=== PATIENT | female | born 1935 | race Caucasian/White ===

== ENCOUNTER 2018-02-06 11:19 | Outpatient (CLI) | payer MEDICARE, BC ==
--- NOTE | 2018-02-06 16:27 | PET ---
PET CT: HISTORY: 82-year-old female with lung cancer. Exam requested for restaging. Patient had left lobectomy in 2013 . TECHNIQUE: PET scanning with CT attenuation correction was performed from the base of the brain through the prox imal thighs following the intravenous administration of 10 mCi F18-FDG in the left antecubital fossa. COMPARISON: PET CT dated 11/04/12. FINDINGS: No levon hypermetabolism is seen in the neck, mediastinum, hilar regions, axilla, abdomen, or pelvis. No hypermetabolic pulmonary nodules, liver, adrenal, or skeletal lesions are seen. The previously noted soft tissue mass-like density in the right posterior lung base is again seen wit h increased calcification since the last exam. This demonstrates no abnormal FDG localization. There is a 5.0 mm nodule in the left upper lobe without abnormal FDG localization. No pleural or usama cardial effusions are seen. No ascites is identified. There is physiologic activity in the GI and tracts, and the visualized portions of the brain. There is a left hip effusion with presence of increased FDG localization, indicative of synovitis. IMPRESSION: 1. No evidence of metastatic disease. 2. 5.0 mm left upper lobe lung nodule. This is an indeterminate finding and should be followed up wi th a CT scan of the chest in 6 months. POS: CARLYN
== END 2018-02-06 11:20 | disposition home or self-care (01) ==
LOC: PET 11:19
PROVIDERS: ATTEND Family Medicine
DX: C34.30 Malignant neoplasm of lower lobe, unspecified bronchus or lung (principal); R91.1 Solitary pulmonary nodule
CPT/HCPCS: 78815; A9552

== ENCOUNTER 2018-03-26 09:42 | Inpatient (IN) | payer MEDICARE, BC ==
[2018-03-26] MEDS ORDERED: Sodium Chloride 0.9% 100 ML ONE (10:02)
[2018-03-26] MEDS ORDERED: Piperacillin/Tazobactam 4.5 GM VIAL ONE (10:02)
[2018-03-26] MEDS ORDERED: Magnesium 2 GM/50 ML BAG (IN WATER) ONE (10:02)
[2018-03-26] MEDS ORDERED: Albuterol Sulfate 2.5 mg/0.5 ml Neb ONE (10:13)
[2018-03-26] MEDS ORDERED: Albuterol Sulfate 2.5 mg/3 ml Neb ONE (10:13)
[2018-03-26] MEDS ORDERED: Furosemide 20 MG/2 ML VIAL ONE (11:08)
--- NOTE | 2018-03-26 12:08 | HP ---
CHIEF COMPLAINT: Shortness of breath and cough. HISTORY OF PRESENT ILLNESS: The patient is an 82-year-old female with a 1-week history of increased shortness of breath and productive cough. She had some greenish brownish sputum now. The sputum is turned into mucus. She denied any fever or chills. She noticed about progressively increased shortness of breath. She has COPD, with O2 oxygen at home for p.r.n. use, she usually uses at night. Also, she uses a CPAP. Dr. 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 She had some loose stools and she thinks that she had bad reaction to erythromycin. Apparently, she was at [facility] a few days ago and she was discharged home I believe on erythromycins and that is how she believed that the erythromycin is causing problem because her shortness of breath increased after she started using it. PAST MEDICAL HISTORY: Her past medical history is positive for; 1. Hypertension. 2. Lung cancer. 3. Chronic obstructive pulmonary disease. PAST SURGICAL HISTORY: 1. Cholecystectomy. 2. Left lower half lung removal for lung cancer. SOCIAL HISTORY: She denies any cigarette smoking for more than 10 years. She does not drink alcohol. She does not use any illicit drugs. ALLERGIES: ERYTHROMYCIN, CODEINE, HYDROCODONE, MORPHINE, OXYCODONE, PENICILLIN, AND VICODIN. CURRENT MEDICATIONS: 1. Losartan 50 mg once a day. 2. Norvasc 5 mg once a day. 3. Famotidine 40 mg once a day. 4. Symbicort two puffs twice a day, 160/4.5. 5. Albuterol sulfate. 6. DuoNeb p.r.n. FAMILY HISTORY: Father and mother of MIs in their 70s. REVIEW OF SYSTEMS: She complains about the left hip pain, which radiates to the left lower extremity. Otherwise, she does not have much complaints to offer. All other systems were reviewed and only positive findings in HPI are positive. PHYSICAL EXAMINATION: VITAL SIGNS: Her blood pressure is 133/87, pulse is 108, respiratory rate 28. She is on wearing a BiPAP mask during my visit. HEENT: Her head is atraumatic and normocephalic. Eyes, pupils are responding to light properly. Sclerae are nonicteric. Conjunctiva somewhat palish. Oral mucosa is not examined since she wears the mask during my visit. LUNGS: Bilateral rales present, significant breath sounds diminished at the right base. HEART: S1 and S2. Tachycardic. No S3. No S4. No any murmur. ABDOMEN: Soft, nontender, and nondistended. Bowel sounds are present. No organomegaly. EXTREMITIES: No clubbing, cyanosis, or edema. NEUROLOGIC: She is alert and oriented x4. There is no any sensory or motor deficits present. Cranial nerves are intact. LABORATORY DATA: White count 16.8, hemoglobin of 15.4, hematocrit 49.5, and platelet count of 663. Chemistry showed sodium of 134, potassium 4.4, chloride 100, CO2 of 23, BUN 17, creatinine 0.85, glucose 123, lactic acid 1.7, calcium 10.9, CK-MB 8.1, alkaline phosphatase 79. Troponin first set is 0.130. The 2nd one is 0.849. BNP 271. Chest x-ray was done and it showed right basilar infiltrate with some pleural effusion and pulmonary vascular congestion along with atherosclerosis. This was personally reviewed by me. EKG showed sinus tachycardia with a ventricular rate of 123 beats per minute. IMPRESSION: 1. Respiratory failure with hypoxia most likely related to pneumonia. The patient received vancomycin and Zosyn in the emergency room. I will continue her nebs, magnesium, and Solu-Medrol. She came from [facility] [facility], where she got all this treatment and she was transferred to our [facility] in [place]. 2. Elevated troponins, which are suggestive of demand ischemia and [id number] myocardial infarction. She received one dose of Lasix in the emergency room and aspirin. 3. Chronic obstructive pulmonary disease. 4. Hypertension. 5. History of lung cancer and removal of the left lower lobe by Dr. Gibson at [facility] in 2012. PLAN: Full admission to [facility]. Condition is guarded. IV Hep-Lock. Diet, heart healthy. Solu-Medrol 40 mg IV push every 6 hours, DuoNeb q.4 hours, levofloxacin 750 mg every 24 hours IV piggyback. Pulmonology consult. The case was discussed with Dr. Contreras, who will see her in [facility]. Consultation with Cardiology, Dr. Jo, echocardiogram and additional troponin. Blood cultures and DVT prophylaxis with SCDs and Lovenox. Job ID: [id number]
[2018-03-26 14:15] LABS: Troponin I 1.281 ng/mL (< 0.028)
[2018-03-26] MEDS ORDERED: Sodium Chloride 0.9% 1,000 ML IV SCH (15:03)
[2018-03-26] MEDS ORDERED: Acetaminophen 325 MG TAB PO PRN (15:03)
[2018-03-26] MEDS ORDERED: Ondansetron PF 4 MG/2 ML Vial IVP PRN (15:03)
[2018-03-26] MEDS ORDERED: Ondansetron ODT 4 MG TAB SL PRN (15:03)
[2018-03-26 15:19] VITALS: BMI 23.0
[2018-03-26] MEDS ORDERED: Piperacillin/Tazobactam 4.5 GM in Sodium Chloride 0.9% 100 ML IVPB SCH (18:00)
[2018-03-26] MEDS: Gabapentin 100 MG CAP PO SCH (20:29)
[2018-03-26] MEDS ORDERED: methylPREDNISolone Sod Succ/PF 125 MG/2 ML VIAL IVP SCH (21:00)
--- NOTE | 2018-03-26 22:50 | CON ---
DATE OF CONSULTATION: 03/26/2018 HISTORY OF PRESENT ILLNESS: Rosalba Fenton is an 82-year-old white female, who was admitted with respiratory failure with hypoxia. She has undergone cardiac evaluation in the past. I evaluated her in June 2008 and she was asymptomatic except for getting somewhat dizzy and nauseated when she would workout in the heat. She had a normal EKG. Echo revealed ejection fraction of 60% to 65% with mild mitral regurgitation and moderate tricuspid regurgitation. It was felt that no further cardiac evaluation was warranted at that time. In August 2012, she had shortness of breath and chest pain, was flown from [place] via helicopter to [place]. She was evaluated by Dr. Vasquez. She was found to have diffuse ST-segment elevation, but no reciprocal changes. She underwent emergent cardiac catheterization which revealed an ejection fraction of 10% to 15% and 50% to 60% distal right coronary artery stenosis, but otherwise unremarkable coronary arteries. Left ventriculogram as stated had an ejection fraction of 10% to 15% and there was mid to distal anterior wall apex, mid to distal inferior wall akinesis, and hypercontractile segments within the basal segments only. It was felt that this was due to Takotsubo cardiomyopathy. She was placed on appropriate medications and was ambulating in the carson. She was discharged on carvedilol and lisinopril and then went to [facility] in [place]. She regained her strength and went home, but never came back for followup with Dr. Vasquez. Apparently, she has followup with Dr. Joens. She states that she was told that her heart strength was excellent and apparently, she recovered from the Takotsubo cardiomyopathy. She denies any recurrence of chest discomfort. Over the last several days, she has had increasing shortness of breath and productive cough initially of green sputum, but then brown sputum. She denies any fever or chills. She uses O2 at night and a CPAP. She apparently was in [facility] a few days ago was discharged with erythromycin, which caused her problems with diarrhea. She then was transferred from [place] here for further evaluation. PAST MEDICAL HISTORY: Hypertension. She denies any history of hypercholesterolemia, although her LDL has been up to 111 in the past, COPD and lung cancer. OPERATIONS: Cholecystectomy and left lower lobectomy for lung cancer. SOCIAL HISTORY: She stopped smoking 10 years ago. She does not drink alcohol. MEDICATIONS: 1. Losartan 100 mg daily. 2. Gabapentin 200 mg b.i.d. 3. Amlodipine 5 mg daily. 4. Atarax 25 mg p.r.n. ALLERGIES: PENICILLIN, OXYCODONE, HYDROCODONE, DUONEB P.R.N. FAMILY HISTORY: Father and mother of myocardial infarctions in their 70s. REVIEW OF SYSTEMS: A 12-point review of systems is otherwise unremarkable. PHYSICAL EXAMINATION: VITAL SIGNS: Blood pressure 112/72, pulse of 117, sinus rhythm on the monitor. HEENT: PERRL. NECK: Supple. CHEST: Reveals diffuse expiratory wheezing. CARDIOVASCULAR: S1 and S2 are normal without any S3, S4, or murmurs. ABDOMEN: Normal bowel sounds. No tenderness or organomegaly. EXTREMITIES: Revealed no clubbing, cyanosis, or edema. NEUROLOGICAL: Grossly intact. SKIN: Warm and dry. LABORATORY DATA: EKG revealed sinus tachycardia with rate of 114 per minute with possible left atrial enlargement and poor R-wave progression. Hemoglobin 15.4, hematocrit 49.5, white count 16,800, platelets 663,000. Sodium 134, potassium 4.4, chloride 100, carbon dioxide 23, BUN 17, creatinine 0.85, glucose 123, BNP 271.0 , troponin I is up to 1.281. IMPRESSION: 1. Respiratory failure with hypoxemia, probable pneumonia. She has been placed on broad-spectrum antibiotics. 2. Elevated troponin, probably due to demand ischemia. 3. Chronic obstructive pulmonary disease. 4. Former smoker. 5. Hypertension. 6. History of lung cancer with removal of left lower lobe. 7. Hypercholesterolemia with LDL of 111 in the past. 8. Coronary artery disease with 50% to 60% distal right coronary artery lesion in August 2012. 9. History of Takotsubo cardiomyopathy in August 2012. She had an ejection fraction of 10% to 15%. However, by her history, this is totally recovered. PLAN: Echocardiogram will be performed to reassess left ventricular function. Fasting lipid profile will be performed since she should be on a statin with her coronary artery disease. Further evaluation will be dependent on clinical course but at the present time with her respiratory distress and expiratory wheezing, I do not feel any further cardiac evaluation other than an echo and lab tests are warranted at this time. Job ID: [id number] [facility]
[2018-03-27] MEDS: hydrOXYzine 25 MG TAB PO PRN ×2 (01:03→20:50)
[2018-03-27 04:42] LABS: #Lymphocytes 0.6 thou/uL (1.20-3.40); #Monocytes 0.7 thou/uL (0.11-0.59); #Neutrophils 7.3 thou/uL (1.40-6.50); %Basophils 0.5 % (0.0-1.0); %Eosinophils 0.3 % (0.0-10.0); %Lymphocytes 6.6 % (21.0-51.0); %Monocytes 7.5 % (0.0-10.0); %Neutrophils 85.1 % (42.0-75.0); Hemoglobin 13.6 g/dL (12.0-16.0); Mean Corpuscular HGB CONC 32.2 g/dL (32.0-36.0); Mean Corpuscular Hemoglobin 27.9 pg (27.0-31.0); Mean Corpuscular Volume 86.6 fL (78.0-98.0); Mean Platelet Volume 6.8 fL (7.4-10.4); Platelet Count 557 thou/uL (130-400); RBC Distribution Width 16.3 % (11.5-14.5); Red Blood Cell (RBC) Count 4.86 mill/uL (4.20-5.40); White Blood Cell (WBC) Count 8.6 thou/uL (4.8-10.8)
[2018-03-27 04:47] LABS: Anion Gap 12 mmol/L (10-20); BUN (Urea Nitrogen) 19 mg/dL (9.8-20.1); Calc. Creatinine Clearance 50 mL/min (70-130); Calcium 10.1 mg/dL (7.8-10.44); Carbon Dioxide 23 mmol/L (23-31); Chloride 100 mmol/L (98-107); Cholesterol 166 mg/dl (< 200 Desired); Estimated GFR-MDRD 76; Glucose 113 mg/dL (83-110); HDL Cholesterol 83 mg/dL (>60 Neg Risk); LDL Cholesterol, Calculated 73 mg/dL; Potassium 4.1 mmol/L (3.5-5.1); Sodium 131 mmol/L (136-145); Triglycerides 50 mg/dL (Less than 150)
[2018-03-27] MEDS ORDERED: Amlodipine 5 MG TAB PO SCH (09:00)
[2018-03-27] MEDS: Aspirin 325 mg Enteric Coated Tablet PO SCH (09:41)
[2018-03-27] MEDS: Gabapentin 100 MG CAP PO SCH ×3 (09:41→20:54)
[2018-03-27] MEDS: Losartan 25 MG TAB PO SCH (09:41)
[2018-03-27] MEDS: Enoxaparin Sodium 40 MG/0.4 ML SYRINGE SC SCH (09:42)
[2018-03-27] MEDS: Carvedilol 3.125 MG TAB PO SCH (17:34)
--- NOTE | 2018-03-27 19:23 | PDOC.PN ---
- Subjective Encounter Start Date: 03/27/18 Encounter Start Time: 10:00 Feeling much better today than she did yesterday. Less SOB and cough. - Objective Resuscitation Status - Order Detail: 03/26/18 10:50 Resuscitation Status Routine Resuscitation Status: FULL: Full Resuscitation Vital Signs & Weight: Vital Signs (12 hours) Temp Pulse Resp BP Pulse Ox 03/27/18 18:29 94 18 98 03/27/18 15:19 98.5 F 95 126/80 96 03/27/18 13:54 89 20 94 L 03/27/18 11:03 97.7 F 95 32 H 122/66 92 L 03/27/18 09:47 103 H 24 H 95 03/27/18 09:41 113 H 03/27/18 07:39 94 L Weight Weight 124 lb 6.4 oz I&O: 03/26/18 03/27/18 03/28/18 06:59 06:59 06:59 Intake Total 1940 Output Total 1050 Balance 890 Result Diagrams: 03/27/18 04:06 03/27/18 04:06 Phys Exam - Physical Examination Constitutional: NAD Awake and alert. Sitting up eating. diffusely scattered rales and modest wheezes. Cardiovascular: RRR, no significant murmur Gastrointestinal: soft, non-tender, no distention, positive bowel sounds Musculoskeletal: no edema Psychiatric: normal affect, A&O x 3 Dx/Plan (1) Acute respiratory failure with hypoxia Code(s): J96.01 - ACUTE RESPIRATORY FAILURE WITH HYPOXIA Status: Acute (2) Pneumonia Code(s): J18.9 - PNEUMONIA, UNSPECIFIED ORGANISM Status: Acute (3) COPD exacerbation Code(s): J44.1 - CHRONIC OBSTRUCTIVE PULMONARY DISEASE W (ACUTE) EXACERBATION Status: Acute (4) Hypertension Code(s): I10 - ESSENTIAL (PRIMARY) HYPERTENSION Status: Acute (5) Hx of cancer of lung Code(s): Z85.118 - PERSONAL HISTORY OF MALIGNANT NEOPLASM OF BRONCHUS AND LUNG Status: Acute (6) CAD (coronary artery disease) Code(s): I25.10 - ATHSCL HEART DISEASE OF [place] CORONARY ARTERY W/O ANG PCTRS Status: Acute (7) Cardiomyopathy Code(s): I42.9 - CARDIOMYOPATHY, UNSPECIFIED Status: Acute - Plan * Cardiology following. Echo with improved EF over prior baseline, but still low. * Continue beta cristiano. * Continue abx, steroids, nebs, oxygen. * Follow up cultures. * Continue home dose of Lasix.
[2018-03-27] MEDS: Atorvastatin Calcium 10 MG TAB PO SCH (20:49)
[2018-03-28 05:18] LABS: Anion Gap 10 mmol/L (10-20); BUN (Urea Nitrogen) 23 mg/dL (9.8-20.1); Calc. Creatinine Clearance 45 mL/min (70-130); Calcium 10.6 mg/dL (7.8-10.44); Carbon Dioxide 28 mmol/L (23-31); Chloride 99 mmol/L (98-107); Estimated GFR-MDRD 66; Glucose 114 mg/dL (83-110); Potassium 4.8 mmol/L (3.5-5.1); Sodium 132 mmol/L (136-145)
[2018-03-28 05:45] LABS: Band 3 % (5-11); Hemoglobin 14.3 g/dL (12.0-16.0); Lymphocytes 8 % (21-51); MDiff Complete? YES; Mean Corpuscular HGB CONC 32.7 g/dL (32.0-36.0); Mean Corpuscular Hemoglobin 28.5 pg (27.0-31.0); Mean Corpuscular Volume 87.3 fL (78.0-98.0); Mean Platelet Volume 6.9 fL (7.4-10.4); Monocytes 3 % (0-10); Neutrophil 86 % (42-75); Platelet Count 603 thou/uL (130-400); Platelet Morphology Comment Appears Increased; RBC Distribution Width 16.2 % (11.5-14.5); Red Blood Cell (RBC) Count 5.02 mill/uL (4.20-5.40); White Blood Cell (WBC) Count 8.4 thou/uL (4.8-10.8)
[2018-03-28] MEDS: Enoxaparin Sodium 40 MG/0.4 ML SYRINGE SC SCH (08:49)
[2018-03-28] MEDS: Carvedilol 3.125 MG TAB PO SCH ×2 (08:49→17:10)
[2018-03-28] MEDS: Furosemide 20 MG TAB PO SCH (08:49)
[2018-03-28] MEDS: Losartan 25 MG TAB PO SCH (08:49)
[2018-03-28] MEDS: Aspirin 325 mg Enteric Coated Tablet PO SCH (08:49)
[2018-03-28] MEDS: Gabapentin 100 MG CAP PO SCH ×2 (08:49→20:11)
--- NOTE | 2018-03-28 10:00 | PRG ---
DATE OF SERVICE: 03/28/2018 SUBJECTIVE: The patient reports she continues to feel better. She still has a lot of cough and rattling in her chest, but overall feels like she is getting somewhat better, although the patient reported that last night, she again had nebulizer treatments, and without her oxygen, she felt like she had a little discomfort in her chest. She is eating. She would like to get up to a chair today. OBJECTIVE: VITAL SIGNS: Temperature 97.7, pulse is 86 to 100, respirations 16 to 22, and O2 saturation is 95% on 2 L. GENERAL APPEARANCE: The patient is very much awake, alert, oriented, pleasant, interactive. HEART: Irregular without murmurs. LUNGS: Have scattered rales and wheezes throughout, but the air exchange is actually somewhat improved from yesterday. ABDOMEN: Soft, nontender, and nondistended. Positive bowel sounds. EXTREMITIES: Warm and dry with no edema. NEUROLOGICALLY: The patient is oriented, appropriate, moving all extremities spontaneously with no deficits. DIAGNOSTIC DATA: Echocardiogram revealed EF of 35% to 40%. LABORATORY DATA: White count 8.4, hemoglobin 14.3, platelets 603, 86 neutrophils, and 3 bands. Sodium 132, potassium 4.8, chloride 99, CO2 is 28, BUN 23, creatinine 0.82, glucose 114, and calcium is 10.6. IMPRESSION AND PLAN: 1. Acute respiratory failure with hypoxia. The patient remains on supplemental oxygen. 2. Pneumonia. Continuing to treat with Levaquin. She appears to be improving. We will repeat a chest x-ray today. 3. Chronic obstructive pulmonary disease. Continue with steroids, nebulizer treatments, and supplemental oxygen. 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 She is looking to establish with a new one. Pulmonology consult has been entered. 4. Hypertension, stable. 5. Hypercalcemia. The patient has a history of hypercalcemia going back to 2012. It appears that she is not symptomatic with this. She is receiving steroids and diuretics. We will continue to monitor that. 6. History of lung cancer. The patient has not had followup with Oncology in about 5 years, and she would like to reestablish with someone. 7. History of coronary artery disease. The patient was followed by Cardiology, appears to be stable. 8. Cardiomyopathy, ejection fraction is at 35%, which is better than her previous numbers. She does not appear to be decompensated. Again, we will continue the diuretics and monitor her chest x-ray today. 9. Irregular heart rhythm appears to be sinus arrhythmia, obvious P-waves present throughout. No intervention was indicated presently. Job ID: [id number] [facility]TD[facility]
--- NOTE | 2018-03-28 10:33 | RAD ---
CHEST PA AND LATERAL: HISTORY: An 82-year-old female with a history of rales and shortness of breath. 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 FINDINGS: Fairly extensive linear, interstitial, and reticulonodular parenchymal changes bilaterally more promi nent in the right lung and particularly in the right lower lobe and infrahilar region with some assoc iated right pleural calcification. Chronic stable blunting to both costophrenic angles. Diffuse bon e demineralization. No new confluent process. IMPRESSION: Extensive stable chronic changes bilaterally, more so in the right lung. Bone demineralization. No new confluent pneumonia or overt edema. POS: CARLYN
--- NOTE | 2018-03-28 16:53 | CON ---
DATE OF CONSULTATION: CONSULTING PHYSICIAN: Austin Norwood MD REASON FOR CONSULTATION: COPD exacerbation. The following consultation encompassed 70 minutes, of that time, greater than 50% was spent with the patient and/or in the patient's unit in the hospital. HISTORY OF PRESENT ILLNESS: The patient is an 82-year-old female who was admitted to the [facility] between March 23 and March 24 with a COPD exacerbation. She was sent home and immediately had problems and this led to her coming here on March 26 for re-evaluation. She has been having constant shortness of breath, wheezing and congestion. She tells me that she has had continuous COPD symptoms since surgery for lung cancer in 2012. She has been under the care of Dr. Errol Benavides at the [facility] up until his recent departure from that facility. At home, she has been taking nebulization solution and Symbicort. She is on home oxygen intermittently. She is usually not on steroids, but she was discharged on steroids after her last admission. PAST MEDICAL HISTORY: 1. Hypertension. 2. Lung cancer. 3. Chronic obstructive pulmonary disease. 4. Asthma. 5. History of hypercalcemia. PAST SURGICAL HISTORY: 1. Cholecystectomy. 2. Left lower lobectomy. SOCIAL HISTORY: The patient has not smoked in about 16 years; prior to that, she was a 2-3 pack per day smoker. ALLERGIES: ERYTHROMYCIN, CODEINE, HYDROCODONE, MORPHINE, OXYCODONE, PENICILLIN, AND VICODIN. MEDICATIONS: Prior to admission, losartan, Norvasc, famotidine, Symbicort, albuterol, DuoNeb. FAMILY MEDICAL HISTORY: Remarkable for heart disease. REVIEW OF SYSTEMS: The patient lives with her and son. She is fairly independent in activities of daily living, but does not get out of the house much and does not drive. She does not have any overly complex symptoms. She denies any neurologic symptoms. She has had no difficulty with chest pain, hemoptysis, hematemesis, melena, hematochezia, hematuria, or dysuria. She says her blood sugars have been elevated from recent steroid use. The remainder of 12-point review of systems negative. PHYSICAL EXAMINATION: VITAL SIGNS: Temperature 97.7, pulse 99, respirations 20, O2 saturation 94% on room air, and blood pressure 128/76. GENERAL: This is an elderly female, who is audibly wheezing. HEENT: Pupils reactive. Sclerae anicteric. Oropharynx clear. NECK: No adenopathy, JVD, or bruits. LUNGS: She has diffuse moderate expiratory wheezing with prolonged expiratory phase. CARDIAC: S1, S2 regular without audible murmur, rub, or gallop. ABDOMEN: Soft and nontender. EXTREMITIES: No clubbing, cyanosis, or edema. NEUROLOGIC: Exam is grossly intact throughout. SKIN: Shows some bruising on the right arm. LABORATORY DATA: Sodium 132, potassium 4.8, chloride 99, CO2 of 28, BUN 23, creatinine 0.8, glucose 114, calcium 10.6. Troponin 1.2. White blood count 8.4, hemoglobin 14, hematocrit 43.8, and platelet count 603. Her chest x-ray shows chronic congestive changes. She has bilateral effusions versus volume loss. She has diffuse interstitial changes in both lungs. A PET scan from February 06, 2018 demonstrated a very small left upper lobe nodule that could not be characterized by PET imaging in terms of malignant potential. She has some chronic scarring present in the right upper lobe. It looks like there are some areas of rounded atelectasis in the right lower lobe. The area of rounded atelectasis in the right lower lobe showed no evidence of increased PET scan uptake. ASSESSMENT: 1. Chronic obstructive pulmonary disease with exacerbation. 2. History of lung cancer. 3. History of an abnormal PET scan with a 5-mm left upper lobe nodule that was PET indeterminate. 4. Systolic congestive heart failure with ejection fraction 35% to 40%. RECOMMENDATIONS: 1. In terms of her COPD, I would continue with the IV steroids and nebulization treatments. Additionally, I will add Brovana and Pulmicort. 2. She has been put on diuretics by Dr. Jo. It could be that her heart symptoms are leading to some of this wheezing or this could be a combination of both systolic heart failure and COPD. 3. She will need to be rehospitalized for another couple of days. From my standpoint, she can go to the telemetry floor. Job ID: [id number]
[2018-03-28] MEDS: Budesonide 0.5 MG/2 ML NEB INH SCH (18:18)
[2018-03-28] MEDS: Arformoterol 15 MCG/2 ML NEB NEB SCH (18:18)
[2018-03-28] MEDS: guaiFENesin 200 MG TAB PO SCH (20:11)
[2018-03-28] MEDS: Atorvastatin Calcium 10 MG TAB PO SCH (20:11)
[2018-03-29] MEDS: Budesonide 0.5 MG/2 ML NEB INH SCH ×2 (07:12→18:40)
[2018-03-29] MEDS: Arformoterol 15 MCG/2 ML NEB NEB SCH ×2 (07:12→18:41)
[2018-03-29] MEDS: Gabapentin 100 MG CAP PO SCH ×2 (10:06→20:46)
[2018-03-29] MEDS: Carvedilol 3.125 MG TAB PO SCH ×2 (10:08→18:29)
[2018-03-29] MEDS: Aspirin 325 mg Enteric Coated Tablet PO SCH (10:08)
[2018-03-29] MEDS: guaiFENesin 200 MG TAB PO SCH ×2 (10:09→20:29)
[2018-03-29] MEDS: Furosemide 20 MG TAB PO SCH (10:09)
[2018-03-29] MEDS: Losartan 25 MG TAB PO SCH (10:09)
[2018-03-29] MEDS: Enoxaparin Sodium 40 MG/0.4 ML SYRINGE SC SCH (10:09)
--- NOTE | 2018-03-29 12:55 | PDOC.PN ---
- Subjective Encounter Start Date: 03/29/18 Encounter Start Time: 09:50 Doing well. Slept very well overnight. Breathing improving. Still wheezing. - Objective Resuscitation Status - Order Detail: 03/26/18 10:50 Resuscitation Status Routine Resuscitation Status: FULL: Full Resuscitation Vital Signs & Weight: Vital Signs (12 hours) Temp Pulse Resp BP Pulse Ox 03/29/18 11:35 98.1 F 87 22 H 134/79 98 03/29/18 10:59 93 18 95 03/29/18 07:42 97.9 F 83 16 134/92 H 93 L 03/29/18 07:10 85 20 96 03/29/18 04:00 98.0 F 79 20 150/73 H 96 03/29/18 02:08 76 20 95 Weight Weight 133 lb 7 oz I&O: 03/28/18 03/29/18 03/30/18 06:59 06:59 06:59 Intake Total 290 280 Output Total 850 Balance -560 280 Result Diagrams: 03/28/18 04:45 03/28/18 04:45 Phys Exam - Physical Examination Constitutional: NAD Scattered rales and wheezes. Speaking in full sentences. Cardiovascular: RRR, no significant murmur, no rub Gastrointestinal: soft, non-tender, no distention Neurological: non-focal Psychiatric: normal affect, A&O x 3 Dx/Plan (1) Acute respiratory failure with hypoxia Code(s): J96.01 - ACUTE RESPIRATORY FAILURE WITH HYPOXIA Status: Acute Comment: Improving. (2) Pneumonia Code(s): J18.9 - PNEUMONIA, UNSPECIFIED ORGANISM Status: Acute Comment: Bacterial. IV Levaquin. (3) COPD exacerbation Code(s): J44.1 - CHRONIC OBSTRUCTIVE PULMONARY DISEASE W (ACUTE) EXACERBATION Status: Acute Comment: Nebs, steroids, oxygen. Pulm consult. (4) Hypertension Code(s): I10 - ESSENTIAL (PRIMARY) HYPERTENSION Status: Acute Comment: Cozaar. (5) Hx of cancer of lung Code(s): Z85.118 - PERSONAL HISTORY OF MALIGNANT NEOPLASM OF BRONCHUS AND LUNG Status: Acute Comment: No follow up with Onc in five years. (6) CAD (coronary artery disease) Code(s): I25.10 - ATHSCL HEART DISEASE OF [place] CORONARY ARTERY W/O ANG PCTRS Status: Acute (7) Cardiomyopathy Code(s): I42.9 - CARDIOMYOPATHY, UNSPECIFIED Status: Acute Comment: EF 35-40 % (8) Elevated troponin Code(s): R74.8 - ABNORMAL LEVELS OF OTHER SERUM ENZYMES Status: Acute Comment: Card consult. Type II NSTEMI from demand ischemia related to infection and COPD exac. - Plan * Doing better. Still has significant wheezing and rales. Continue current plan. * Can likely move to tele when ok with pulm.
--- NOTE | 2018-03-29 16:07 | PRG ---
DATE OF SERVICE: 03/29/2018 SUBJECTIVE: She feels better today. Has no acute complaints. OBJECTIVE: VITAL SIGNS: On exam, her temperature is 97.8, pulse 79, respirations 20, O2 sat 97% 2 L, and blood pressure 152/83. HEENT: Unremarkable. NECK: No JVD. LUNGS: Diffuse mild wheezing. CARDIAC: S1 and S2, regular. ABDOMEN: Soft. EXTREMITIES: No edema. ASSESSMENT: Chronic obstructive pulmonary disease with exacerbation. PLAN: I believe that she has improved to the point where she could be transferred out to telemetry. Job ID: [id number]
[2018-03-29] MEDS: Atorvastatin Calcium 10 MG TAB PO SCH (20:29)
[2018-03-30] MEDS: Budesonide 0.5 MG/2 ML NEB INH SCH ×2 (07:20→18:29)
[2018-03-30] MEDS: Arformoterol 15 MCG/2 ML NEB NEB SCH ×2 (07:21→18:29)
[2018-03-30] MEDS: guaiFENesin 200 MG TAB PO SCH ×2 (09:39→21:14)
[2018-03-30] MEDS: Losartan 25 MG TAB PO SCH (09:39)
[2018-03-30] MEDS: Furosemide 20 MG TAB PO SCH (09:39)
[2018-03-30] MEDS: Aspirin 325 mg Enteric Coated Tablet PO SCH (09:39)
[2018-03-30] MEDS: Carvedilol 3.125 MG TAB PO SCH ×2 (09:40→17:17)
[2018-03-30] MEDS: Gabapentin 100 MG CAP PO SCH ×2 (09:40→21:13)
[2018-03-30] MEDS: Enoxaparin Sodium 40 MG/0.4 ML SYRINGE SC SCH (09:40)
--- NOTE | 2018-03-30 13:03 | PRG ---
DATE OF SERVICE: 03/30/2018 SUBJECTIVE: The patient is doing better. She had no acute complaints. OBJECTIVE: VITAL SIGNS: On exam, temperature is 97.8, pulse 86, respirations 18, O2 sat 92% on room air, and blood pressure 131/78. HEENT: Unremarkable. NECK: No JVD. CHEST: Clear anteriorly with some mild wheezes at the base posteriorly. ABDOMEN: Soft. EXTREMITIES: No edema. ASSESSMENT: 1. Chronic obstructive pulmonary disease with exacerbation. 2. Cardiomyopathy with ejection fraction of 35% to 40%. PLAN: The patient is nearing the point where she can be discharged. I will go ahead and cycle her over to oral steroids and antibiotics with the assumption that she will probably go home soon. Job ID: [id number]
--- NOTE | 2018-03-30 17:27 | PRG ---
DATE OF SERVICE: 03/30/2018 SUBJECTIVE: The patient feels well. She feels like she is continuing to improve daily. Breathing is better. OBJECTIVE: VITAL SIGNS: Temperature 98.2, pulse 86 to 101, respirations 18, O2 saturation 92% to 97% on room air, BP 145/77. GENERAL APPEARANCE: Age-appropriate female, in no distress. She is awake, alert, oriented, pleasant, and cooperative. HEART: Regular rate and rhythm without murmurs, gallops, or rubs. LUNGS: Have scattered inspiratory and expiratory wheezes with mild scattered rales. ABDOMEN: Soft, nontender, and nondistended. EXTREMITIES: Warm and dry with no edema. IMPRESSION AND PLAN: 1. Acute respiratory failure with hypoxia seems to be resolved. She is off oxygen with good saturations now. 2. Pneumonia. Continue with Levaquin. 3. Chronic obstructive pulmonary disease exacerbation. Continue nebulizer, steroids, supplemental oxygen. Pulmonary consultation. The patient is stable enough to move to the telemetry floor. However, there are no beds available presently. 4. Hypertension, stable. Continue Cozaar. 5. History of lung cancer. The patient has not had Oncology followup in 5 years. She will need to establish with oncologist after discharge. 6. Coronary artery disease, stable. 7. History of cardiomyopathy with EF 35% to 40%. She has no evidence of decompensation. 8. Elevated troponin, likely type 2 [id number] myocardial infarction secondary to demand ischemia related to infection, chronic obstructive pulmonary disease. 9. Disposition. The patient is stable to move to the [facility] and would transfer if there was a bed available. Hopefully, she will be close to discharge in the next 24 to 48 hours. Job ID: [id number] [facility]
[2018-03-30] MEDS: Atorvastatin Calcium 10 MG TAB PO SCH (21:11)
[2018-03-30] MEDS: hydrOXYzine 25 MG TAB PO PRN (21:12)
[2018-03-30] MEDS: predniSONE 20 MG TAB PO SCH (21:12)
[2018-03-31] MEDS: Budesonide 0.5 MG/2 ML NEB INH SCH (06:40)
[2018-03-31] MEDS: Arformoterol 15 MCG/2 ML NEB NEB SCH (06:44)
[2018-03-31] MEDS: guaiFENesin 200 MG TAB PO SCH (08:36)
[2018-03-31] MEDS: Losartan 25 MG TAB PO SCH (08:36)
[2018-03-31] MEDS: Enoxaparin Sodium 40 MG/0.4 ML SYRINGE SC SCH (08:36)
[2018-03-31] MEDS: Gabapentin 100 MG CAP PO SCH (08:37)
[2018-03-31] MEDS: predniSONE 20 MG TAB PO SCH (08:37)
[2018-03-31] MEDS: Aspirin 325 mg Enteric Coated Tablet PO SCH (08:37)
[2018-03-31] MEDS: Carvedilol 3.125 MG TAB PO SCH (08:37)
[2018-03-31] MEDS: Furosemide 20 MG TAB PO SCH (08:37)
--- NOTE | 2018-03-31 09:23 | PRG ---
DATE OF SERVICE: 03/31/2018 SUBJECTIVE: The patient feels better and she wants to go home. OBJECTIVE: VITAL SIGNS: Temperature 97.9, pulse 109, respirations 18, O2 saturation 96%, and blood pressure 122/82. HEENT: Unremarkable. NECK: No JVD. LUNGS: She has diffuse mild wheezing. CARDIAC: S1, S2. Regular. ABDOMEN: Soft. EXTREMITIES: No edema. ASSESSMENT: Chronic obstructive pulmonary disease with exacerbation. PLAN: She can go home completing 7 days of antibiotics and have her steroids tapered over about two weeks. She needs to continue her nebulization treatments and either Advair or Symbicort at home. In the past, she has seen Dr. Benavides. If she does not see him, then she would need to see me in about 3 to 4 weeks. Job ID: [id number]
--- NOTE | 2018-03-31 10:16 | PDOC.PN ---
- Subjective Encounter Start Date: 03/31/18 Encounter Start Time: 11:20 Subjective: Patient reports significantly improved cough and SOB. Ready to -: go home. Has home O2 for prn use. - Objective Resuscitation Status - Order Detail: 03/26/18 10:50 Resuscitation Status Routine Resuscitation Status: FULL: Full Resuscitation MAR Reviewed: Yes Vital Signs & Weight: Vital Signs (12 hours) Temp Pulse Resp BP BP Pulse Ox 03/31/18 09:54 101 H 16 96 03/31/18 07:42 97.9 F 109 H 18 122/82 96 03/31/18 06:44 106 H 18 96 03/31/18 06:40 106 H 18 96 03/31/18 03:25 97.6 F 106 H 18 100/64 96 03/31/18 01:58 114 H 18 98 03/30/18 23:52 97 20 95 03/30/18 23:34 97.4 F L 93 18 101/56 L 94 L Weight Weight 133 lb 7 oz I&O: 03/30/18 03/31/18 04/01/18 06:59 06:59 06:59 Intake Total 1561 Balance 1561 Result Diagrams: 03/28/18 04:45 03/28/18 04:45 Phys Exam - Physical Examination Constitutional: NAD HEENT: moist MMs Respiratory: no wheezing, no rales, no rhonchi Cardiovascular: RRR Gastrointestinal: soft, positive bowel sounds Musculoskeletal: no edema Neurological: non-focal, moves all 4 limbs Psychiatric: normal affect, A&O x 3 Dx/Plan (1) Acute respiratory failure with hypoxia Code(s): J96.01 - ACUTE RESPIRATORY FAILURE WITH HYPOXIA Status: Acute Comment: Improving. (2) COPD exacerbation Code(s): J44.1 - CHRONIC OBSTRUCTIVE PULMONARY DISEASE W (ACUTE) EXACERBATION Status: Acute Comment: Nebs, steroids, oxygen. Pulm consulted and has cleared patient for d/c. (3) Pneumonia Code(s): J18.9 - PNEUMONIA, UNSPECIFIED ORGANISM Status: Resolved Comment: Bacterial. IV Levaquin. (4) CAD (coronary artery disease) Code(s): I25.10 - ATHSCL HEART DISEASE OF [place] CORONARY ARTERY W/O ANG PCTRS Status: Acute (5) Cardiomyopathy Code(s): I42.9 - CARDIOMYOPATHY, UNSPECIFIED Status: Acute Comment: EF 35-40 % (6) Elevated troponin Code(s): R74.8 - ABNORMAL LEVELS OF OTHER SERUM ENZYMES Status: Acute Comment: Card consult. Type II NSTEMI from demand ischemia related to infection and COPD exac. (7) Hx of cancer of lung Code(s): Z85.118 - PERSONAL HISTORY OF MALIGNANT NEOPLASM OF BRONCHUS AND LUNG Status: Acute Comment: No follow up with Onc in five years. (8) Hypertension Code(s): I10 - ESSENTIAL (PRIMARY) HYPERTENSION Status: Acute Comment: Yinka. - Plan cont current plan of care, continue antibiotics D/c on 2 days of abx, 2 week steroid taper. * . - Discharge Day Encounter end time: 11:35 Pulmonology Consult: Meds - Medications MAR Reviewed: Yes Medications: Current Medications Albuterol/Ipratropium (Duoneb) 3 ml NEB [id number] [facility] Last Admin: 03/31/18 09:54 Dose: 3 ml Arformoterol Tartrate (Brovana) 15 mcg NEB BID-RT [facility] Last Admin: 03/31/18 06:44 Dose: 15 mcg Aspirin (Ecotrin) 325 mg PO DAILY [facility] Last Admin: 03/31/18 08:37 Dose: 325 mg Atorvastatin Calcium (Lipitor) 10 mg PO HS [facility] Last Admin: 03/30/18 21:11 Dose: 10 mg Budesonide (Pulmicort Neb Solution) 0.5 mg INH BID-RT [facility] Last Admin: 03/31/18 06:40 Dose: 0.5 mg Carvedilol (Coreg) 3.125 mg PO BID-WM [facility] Last Admin: 03/31/18 08:37 Dose: 3.125 mg Enoxaparin Sodium (Lovenox) 40 mg SC 0900 [facility] Last Admin: 03/31/18 08:36 Dose: 40 mg Furosemide (Lasix) 20 mg PO DAILY [facility] Last Admin: 03/31/18 08:37 Dose: 20 mg Gabapentin (Neurontin) 200 mg PO BID [facility] Last Admin: 03/31/18 08:37 Dose: Not Given Guaifenesin (Organ-I Nr) 400 mg PO BID [facility] Last Admin: 03/31/18 08:36 Dose: 400 mg Hydroxyzine HCl (Atarax) 25 mg PO QID PRN PRN Reason: Itching Last Admin: 03/30/18 21:12 Dose: 25 mg Levofloxacin (Levaquin) 750 mg PO 1800 [facility] Last Admin: 03/30/18 17:17 Dose: 750 mg Losartan Potassium (Cozaar) 100 mg PO DAILY [facility] Last Admin: 03/31/18 08:36 Dose: 100 mg Prednisone (Prednisone) 40 mg PO BID [facility] Last Admin: 03/31/18 08:37 Dose: 40 mg Sodium Chloride (Flush - Normal Saline) 10 ml IVF Q12HR [facility] Last Admin: 03/31/18 08:38 Dose: 10 ml Sodium Chloride (Flush - Normal Saline) 10 ml IVF PRN PRN PRN Reason: Saline Flush Last Admin: 03/29/18 05:58 Dose: 10 ml - Allergies Allergies/Adverse Reactions: Allergies Allergy/AdvReac Type Severity Reaction Status Date / Time oxycodone HCl Allergy Hives Verified 09/14/12 21:57 [From OxyContin] Penicillins Allergy Rash Verified 09/14/12 21:57 hydrocodone AdvReac Verified 09/14/12 21:55
[2018-03-31 12:49] VITALS: BP 132/76; TEMP 98.4
--- NOTE | 2018-04-01 02:57 | DIS ---
DATE OF ADMISSION: 03/26/2018 DATE OF DISCHARGE: 03/31/2018 PRIMARY CARE PHYSICIAN: Dr. Sánchez. REASON FOR ADMISSION: Hypoxic respiratory failure. DIAGNOSES AT DISCHARGE: 1. Acute hypoxic respiratory failure, resolved. 2. Chronic obstructive pulmonary disease exacerbation. 3. Pneumonia. 4. Coronary artery disease. 5. Cardiomyopathy. 6. Hypertension. CONSULTATIONS: 1. Pulmonology, Dr. Vogt. 2. Cardiology, Dr. Jo. PROCEDURE: Echocardiogram showing an ejection fraction of 35% to 40%. SUMMARY OF HOSPITAL COURSE: This is an 82-year-old white female with a 1-week history of increased shortness of breath and productive cough of greenish brown sputum. The patient has oxygen at home along with a CPAP. She had previously been in [facility] for few days, discharged home on erythromycin, and started having increased shortness of breath and so, she came in here. The patient was diagnosed with COPD exacerbation and possible pneumonia. She also had indeterminate troponin. Pulmonology and Cardiology were consulted to determine that the patient's elevated troponin was a stress reaction to her COPD exacerbation. She was treated with antibiotics, steroids, and oxygen with marked improvement in symptoms. She was able to be weaned off the oxygen completely on the day of discharge and is feeling back to her baseline and Dr. Vogt cleared her to go home. DISCHARGE MANAGEMENT: Discharged home. FOLLOWUP: Follow up with Dr. Sánchez next week, with Dr. Jo and Dr. Vogt as directed. ACTIVITY: As tolerated. DIET: Healthy heart diet and use her home oxygen as needed. DISCHARGE MEDICATIONS: 1. Prednisone 20 mg one tablet twice a day for 5 days, then one-half tablet twice a day for 5 days, then one-half tablet daily for 5 days, and then off. 2. Levofloxacin 750 mg one tablet tonight and one tablet tomorrow to finish the course. 3. Carvedilol 3.125 mg twice a day, 60 tablets dispensed. 4. Atorvastatin 10 mg daily, 30 tablets dispensed. 5. Aspirin 325 mg daily, 30 tablets dispensed. 6. Losartan potassium 100 mg daily. 7. Hydroxyzine as needed. Job ID: [id number]
--- NOTE | 2018-04-05 20:11 | EKG ---
Test Reason : DYSPNEA Blood Pressure : / mmHG Vent. Rate : 114 BPM Atrial Rate : 114 BPM P-R Int : 160 ms QRS Dur : 074 ms QT Int : 326 ms P-R-T Axes : 064 019 046 degrees QTc Int : 449 ms Sinus tachycardia with occasional Premature ventricular complexes and Fusion complexes Possible Left atrial enlargement Borderline ECG Confirmed by MARIO ZAIDI ([id number]), editor farm journal JANETTE PELAYO ([id number]) on 04/05/2018 8:10:47 PM Referred By: Confirmed By:MARIO ZAIDI
== END 2018-03-31 12:47 | disposition home or self-care (01) | DRG 193 ==
LOC: ERS 09:42 → ERHOLD 11:31 → IMCU/EMU 15:11 → T4-B 03-30 20:51
PROVIDERS: ADMIT Internal Medicine; ATTEND Internal Medicine
DX: J18.9 Pneumonia, unspecified organism (principal); J96.01 Acute respiratory failure with hypoxia; J44.0 Chronic obstructive pulmonary disease with (acute) lower respiratory infection; J44.1 Chronic obstructive pulmonary disease with (acute) exacerbation; I50.20 Unspecified systolic (congestive) heart failure; I24.8 Other forms of acute ischemic heart disease; Z99.81 Dependence on supplemental oxygen; I25.10 Atherosclerotic heart disease of native coronary artery without angina pectoris; Z85.118 Personal history of other malignant neoplasm of bronchus and lung; Z90.2 Acquired absence of lung [part of]; Z87.891 Personal history of nicotine dependence; Z79.2 Long term (current) use of antibiotics; Z79.84 Long term (current) use of oral hypoglycemic drugs; Z88.6 Allergy status to analgesic agent; Z88.0 Allergy status to penicillin; Z88.8 Allergy status to other drugs, medicaments and biological substances; E78.00 Pure hypercholesterolemia, unspecified; E83.52 Hypercalcemia; I11.0 Hypertensive heart disease with heart failure
CPT/HCPCS: 36415; 71046; 80048; 80061; 83605; 85025; 87040; 87070; 87205; 87804; 93005; 93306; 94640; 94644; 94660; 96365; 96367; 96375; J1650; J1940; J1956; J2543; J2920; J3370; J7050; J7506; J7611; J7620; J7626

== ENCOUNTER 2018-05-24 09:05 | Inpatient (IN) | payer MEDICARE, BC ==
[2018-05-24] MEDS ORDERED: Diltiazem 125 MG/25 ML ONE (09:17)
[2018-05-24] MEDS ORDERED: Albuterol Sulfate 2.5 mg/3 ml Neb ONE (09:24)
[2018-05-24] MEDS ORDERED: Enoxaparin Sodium 60 MG/0.6 ML SYRINGE ONE (09:36)
[2018-05-24 09:45] LABS: #Basophils 0.1 thou/uL (0.0-0.2); #Eosinphils 0.4 thou/uL (0.0-0.7); #Lymphocytes 2.4 thou/uL (1.20-3.40); #Monocytes 0.6 thou/uL (0.11-0.59); %Basophils 1.3 % (0.0-1.0); %Eosinophils 3.4 % (0.0-10.0); %Lymphocytes 22.8 % (21.0-51.0); %Monocytes 5.5 % (0.0-10.0); Hemoglobin 14.4 g/dL (12.0-16.0); Mean Corpuscular Hemoglobin 27.4 pg (27.0-31.0); Mean Corpuscular Volume 85.6 fL (78.0-98.0); Platelet Count 555 thou/uL (130-400); RBC Distribution Width 16.1 % (11.5-14.5); Red Blood Cell (RBC) Count 5.27 mill/uL (4.20-5.40); White Blood Cell (WBC) Count 10.5 thou/uL (4.8-10.8)
[2018-05-24 09:50] LABS: Actual Bicarbonate (HCO3a) 25.2 mEq/L (22-28); Analyzer IN Cardio ER; Base Excess (BEa) 1.2 mEq/L (-2.0 to +3.0); CO2 Tension 38.2 mmHg (35.0-45.0); Carboxyhemoglobin (COHb) 0.9 gm% (0.0-3.0); Hemoglobin (Hb) 14.2 g/dL (12.0-16.0); O2 Tension (PaO2) 129.5 mmHg (> 60.0); pH, Arterial 7.44 (7.35-7.45)
[2018-05-24 09:53] LABS: Puncture Site RRA
[2018-05-24 09:57] LABS: PTT 34.8 SEC (22.9-36.1); Prothrombin Time 13.3 SEC (12.0-14.7)
[2018-05-24 10:08] LABS: ALT (SGPT) 18 U/L (8-55); AST (SGOT) 25 U/L (5-34); Alkaline Phosphatase 102 U/L (40-150); Anion Gap 16 mmol/L (10-20); BUN (Urea Nitrogen) 9 mg/dL (9.8-20.1); Bilirubin, Total 1.1 mg/dL (0.2-1.2); CK (CPK) 27 U/L (29-168); Calc. Creatinine Clearance 0 mL/min (70-130); Calcium 11.1 mg/dL (7.8-10.44); Carbon Dioxide 23 mmol/L (23-31); Chloride 98 mmol/L (98-107); Estimated GFR-MDRD 77; Globulin 3.4 g/dL (2.4-3.5); Glucose 115 mg/dL (83-110); Lipase 10 U/L (8-78); Potassium 3.4 mmol/L (3.5-5.1); Protein, Total 7.4 g/dL (6.0-8.3); Sodium 134 mmol/L (136-145)
--- NOTE | 2018-05-24 10:08 | RAD ---
PORTABLE AP CHEST: Date: 05/24/18 HISTORY: Dyspnea, hypertension, atrial fibrillation. COMPARISON: 03/28/18. FINDINGS: The cardiac silhouette is magnified by projection, but does appear mildly enlarged. There are increas ed interstitial densities seen throughout the lungs bilaterally, much greater in the right hemithorax . Interstitial densities do appear greater than on the prior exam, and findings may be related to sup erimposed acute infectious process superimposed on extensive chronic interstitial fibrotic lung lopez es. Bibasilar pleural and parenchymal scarring is again present with calcified pleural based plaques at the right lung base. Surgical clips again overlie the left hilar region. No other interval change. IMPRESSION: Chronic interstitial fibrotic lung changes, but the interstitial densities do appear increased compar ed to the prior study, some of which is probably attributable to technique, but superimposed more acu te infectious process is a possibility. Follow-up chest x-ray is recommended. POS: CARLYN
[2018-05-24 10:29] LABS: CKMB 3.1 ng/mL (0-6.6)
[2018-05-24 12:34] VITALS: BMI 145.1
[2018-05-24] MEDS ORDERED: Diltiazem 125 MG in Sodium Chloride 0.9% 100 ML IVPB SCH (14:30)
--- NOTE | 2018-05-24 15:03 | CON ---
DATE OF CONSULTATION: 05/24/2018 SERVICE: Pulmonary Medicine. HISTORY OF PRESENT ILLNESS: The patient is an 82-year-old white female with past medical history significant for chronic lung disease. This has yet to be defined. That being said, she also has chronic systolic heart failure. She was in her usual state of health until a couple of months ago when she started having increasing shortness of breath and work of breathing. Ultimately, she was discharged from the hospital with a COPD exacerbation. She was discharged home with some steroids. She had a profound increase in lower extremity swelling. She also had increasing work of breathing and shortness of breath. She had increasing orthopnea and paroxysmal nocturnal dyspnea. She got to the point where she started sleeping in a recliner because she would wake up gasping or choking in the middle of the night. She has a cough on a daily basis. She is bringing up white and clear sputum. She returned to the emergency department because of increasing work of breathing. She denies having any fevers or chills, sputum production with anything of color to it, nausea, vomiting, or diarrhea. Overnight, she was placed on BiPAP. She is actually breathing much better at this point. In the emergency department, she was given a diuretic and some antibiotics. She denies any current fevers, chills, nausea, or vomiting. PAST MEDICAL HISTORY: 1. History of lung cancer. 2. COPD (no PFTs on record). 3. Hypertension. 4. Chronic systolic heart failure. 5. Atrial tachyarrhythmia. PAST SURGICAL HISTORY: 1. Cholecystectomy. 2. Left lower lobectomy. SOCIAL HISTORY: Negative for current tobacco, alcohol, or illicit drug use. She has a greater than 50-pack year history of smoking, but discontinued this habit roughly 16 years ago. She has no exposure to chemicals, dust, asbestos, or tuberculosis. FAMILY HISTORY: Noncontributory. ALLERGIES: OXYCODONE, PENICILLIN, HYDROCODONE. MEDICATIONS: List of the patient's inpatient medications was reviewed. Multiple updates were made at this time. REVIEW OF SYSTEMS: General, head, ears, eyes, nose, throat, cardiovascular, respiratory, GI, , musculoskeletal, neurologic, and skin is negative except as mentioned in the HPI. PHYSICAL EXAMINATION: VITAL SIGNS: Afebrile, pulse 122, blood pressure 101/66, respirations 18, saturation 98% on 2 L nasal cannula. GENERAL: The patient is awake and alert, in no apparent distress. LUNGS: There is decent air entry. Prolonged expiratory phase present. There is extensive rhonchi and crackles present. I do not appreciate much wheezing. HEART: Tachycardic. Irregular. ABDOMEN: Soft, nontender, nondistended. Bowel sounds are positive. MUSCULOSKELETAL: No cyanosis or clubbing. There is bilateral pitting. It is 1 + in the right lower extremity and 2 to 3+ in the left lower extremity. : No Krause catheter in place. NEUROLOGIC: Grossly nonfocal. LABORATORY DATA: WBC 10.5, hemoglobin 14.4, platelets 555,000. INR 1.3. PH 7.44, pCO2 38, PO2 129 on 30% FiO2 delivered via BiPAP at the moment. Lactic acid was unremarkable, troponin is downtrending to 0.01, BNP 782, which is in historic high, TSH 2.5, procalcitonin 0.03. Potassium 3.4, liver function studies and basic metabolic profile are otherwise unremarkable. IMAGING: Chest x-ray demonstrates severe worsening in the interstitial opacifications throughout bilateral lung torres. The pleural effusions are bilaterally more prominent. This is all superimposed on chronic lung disease. Her lungs are enlarged in size. ASSESSMENT: 1. Acute hypoxic respiratory failure. 2. Atrial fibrillation with rapid ventricular response. 3. Acute on chronic systolic heart failure. 4. Chronic obstructive pulmonary disease with acute exacerbation, suspected. DISCUSSION AND PLAN: I will replace the potassium. We will diurese the patient to euvolemia. We will give her some low doses of steroids, nebulized medications, though I think that her primary presentation is secondary to cardiac issue. I will recheck potassium and magnesium tomorrow morning. She will remain in the IMCU, but if she does well into tomorrow, she will be stable for transition to the telemetry unit. In the meantime, I will work on rate control medications. Cardiology consultation has already been placed, which I agree with. 70 minutes have been devoted to this patient in various activities. I personally reviewed all imaging studies and laboratory data noted within this document. For fifty percent of this time, I was interacting with the patient at the bedside or coordinating care with the care team. For the remainder of the time I was immediately available to the patient in the hospital unit. Job ID: [id number] [facility]
[2018-05-24] MEDS ORDERED: Furosemide 40 MG/4 ML VIAL SLOW IVP SCH (15:15)
[2018-05-24] MEDS ORDERED: Senokot S 8.6-50 MG TAB PO PRN (15:48)
[2018-05-24] MEDS ORDERED: Acetaminophen 325 MG TAB PO PRN (15:48)
[2018-05-24] MEDS ORDERED: Bisacodyl 10 MG SUPP PR PRN (15:48)
[2018-05-24] MEDS ORDERED: Enoxaparin Sodium 40 MG/0.4 ML SYRINGE SC SCH (16:00)
[2018-05-24] MEDS: Potassium Chloride 20 MEQ TAB PO SCH ×2 (16:40→20:21)
--- NOTE | 2018-05-24 17:08 | HP ---
CHIEF COMPLAINT: Worsening shortness of breath and cough. HISTORY OF PRESENT ILLNESS: An 82-year-old female with past medical history significant for chronic lung disease, chronic systolic heart failure, presumed nonischemic cardiomyopathy with ejection fraction of 35% to 40%, who was recently discharged from this hospital in March following treatment for acute respiratory failure with hypoxia from COPD exacerbation and CHF exacerbation. Brought in this time by EMS due to acute worsening of shortness of breath. The patient reported that since 2 weeks ago, she developed progressive shortness of breath. It started earlier today. She was unable to breathe. She admitted to orthopnea, PND, cough with clear sputum production, exertional dyspnea, wheezing, and difficulty breathing as well as bilateral leg edema. The patient reported that symptoms continued to progress and worsen despite use of home oxygen and nebulizers. She however denied chest pain, fever, nausea, vomiting, focal weakness, dysuria, or hematuria. On presentation to the ER, the patient was noted to be in respiratory distress and having difficulty breathing; hence, was started on BiPAP after breathing treatment. She also was found to be in atrial fib with RVR and started on cardizem infusion and also received IV vancomycin and Levaquin as well as steroids. She was subsequently admitted to [facility]. PAST MEDICAL HISTORY: 1. Chronic lung disease. 2. Chronic CHF with EF of 35% to 40%. 3. Coronary artery disease. 4. Cardiomyopathy with ejection fraction of 35% 40%. 5. COPD. 6. Prior history of lung cancer. 7. Hypertension. PAST SURGICAL HISTORY: 1. Cholecystectomy. 2. Left lower lung resection. SOCIAL HISTORY: The patient is a former smoker and stopped about 10 years ago after a long period of smoking. She denied alcohol or recreational drug use. She lives with spouse. FAMILY HISTORY: Reviewed and not significant. ALLERGIES: THE PATIENT REPORTS REVIEW OF MEDICAL RECORDS SHOWED THE PATIENT IS ALLERGIC TO ERYTHROMYCIN, CODEINE, HYDROCODONE, MORPHINE, OXYCODONE, PENICILLIN , AND VICODIN. CURRENT MEDICATIONS: 1. Aspirin 325 mg daily. 2. Lipitor 10 mg at bedtime. 3. Carvedilol 3.125 p.o. b.i.d. 4. Hydroxyzine 25 mg q.i.d. p.r.n. for anxiety. 5. Losartan 100 mg p.o. daily. REVIEW OF SYSTEMS: A 12-point review of systems performed was negative other than pertinent positives and negatives included in the History of Present Illness. PHYSICAL EXAMINATION: VITAL SIGNS: Currently, blood pressure 120/79, heart rate 104, SpO2 of 96% on 3 L, respiratory rate is 27, and temperature 98.4. GENERAL: Elderly female in moderate respiratory distress. Afebrile, anicteric, acyanotic. HEENT: Normocephalic, atraumatic. Pupils are equal and reacting to light. Oral mucosa is moist. NECK: Supple, nontender with full range of motion. No masses appreciated. RESPIRATORY: Fair air entry bilaterally with prolonged expiration and scattered wheezes. No obvious crackles are appreciated. Some transmitted sound is appreciated. Work of breathing is increased. CARDIOVASCULAR: Irregularly regular rhythm and rate. Tachycardic. No heart murmur was appreciated. GI: Abdomen is full, soft, nontender, nondistended with normal bowel sounds. EXTREMITIES: Mjri-[id number]-mtmiqfjg bilateral leg edema appreciated. Otherwise, extremities are grossly normal and atraumatic with no erythema. SKIN: Grossly normal and appropriate for age with no petechia, erythema, or ecchymosis. NEUROLOGIC: Conscious and alert and oriented x3 with appropriate mental status. Cranial nerves 2 through 12 are intact. The patient moves all extremities. DIAGNOSTIC DATA: CBC showed WBC count of 10.5, hemoglobin of 14.4, and platelets of 555. CMP showed sodium 134, potassium 3.4, chloride 98, CO2 of 23, BUN 9, creatinine 0.72, glucose 115, calcium 11.1, total bilirubin 1.1, AST 25, ALT 18, alkaline phosphatase 102, total protein 7.4, and albumin 4.0. Lipase 10. Initial troponin was 0.03(indeterminate). BNP is 782. TSH is 2.55. Procalcitonin is 0.03. Coagulation panel showed PT 13.3, INR 1.0, and PTT 34.8. DIAGNOSTIC DATA: EKG showed atrial fibrillation with rapid ventricular response. Chest x-ray showed chronic interstitial fibrotic lung changes which relatively increased interstitial densities compared to prior study. ASSESSMENT: 1. Acute on chronic respiratory failure with hypoxia. This was felt to be due to congestive heart failure exacerbation with possible contributor from chronic obstructive pulmonary disease exacerbation. 2. Acute on chronic congestive heart failure (both systolic and diastolic heart failure). Acute xyk-PB-vypfvto elevation myocardial infarction is the concern. Atrial fibrillation with rapid ventricular response may be the precipitating factor or acute myocardial infarction. 3. Atrial fibrillation with rapid ventricular response. New onset. 4. Chronic obstructive pulmonary disease with possible acute exacerbation. 5. Cardiomyopathy with ejection fraction of 35% to 40%. 6. Coronary artery disease: The patient had a prior cardiac catheterization, which did not show occlusive disease. 7. Prior history of lung cancer, status post resection. 8. Hypertension. RECOMMENDATIONS: 1. We will continue respiratory support with BiPAP as needed. Oxygen as needed. Bronchodilators as needed. 2. We will also start the patient on bronchodilators and antibiotics for possible COPD exacerbation. 3. We will also start the patient on diuretic therapy. 4. Continue cardizem infusion for rate control of atrial fibrillation with rapid ventricular response 5. We will get serial troponin to rule out acute myocardial infarction. 6. We will also consult Cardiology and Pulmonary. The patient has been hospitalized this year alone 3 times for similar episode. One wonders if she has significant coronary artery disease. Cardiac catheterization at this time will not be out of place to re-evaluate her coronaries. 7. DVT prophylaxis with Lovenox. 8. Ethics: Full code. The patient's spouse is the surrogate decision maker. The patient was admitted to be in hospital for more than 3 midnights. Job ID: [id number] [facility]
[2018-05-24 18:47] LABS: Troponin I 0.014 ng/mL (< 0.028)
[2018-05-24] MEDS: hydrOXYzine 25 MG TAB PO PRN (20:21)
[2018-05-25] MEDS: Furosemide 40 MG/4 ML VIAL SLOW IVP SCH ×2 (05:48→15:20)
[2018-05-25] MEDS ORDERED: Furosemide 40 MG/4 ML VIAL SLOW IVP SCH (06:00)
[2018-05-25 06:54] LABS: #Lymphocytes 1.2 thou/uL (1.20-3.40); #Monocytes 0.7 thou/uL (0.11-0.59); #Neutrophils 4.6 thou/uL (1.40-6.50); %Basophils 0.7 % (0.0-1.0); %Eosinophils 0.2 % (0.0-10.0); %Lymphocytes 17.6 % (21.0-51.0); %Monocytes 11.3 % (0.0-10.0); %Neutrophils 70.2 % (42.0-75.0); Hemoglobin 12.2 g/dL (12.0-16.0); Mean Corpuscular HGB CONC 31.4 g/dL (32.0-36.0); Mean Corpuscular Hemoglobin 27.4 pg (27.0-31.0); Mean Corpuscular Volume 87.4 fL (78.0-98.0); Mean Platelet Volume 7.1 fL (7.4-10.4); Platelet Count 489 thou/uL (130-400); RBC Distribution Width 15.9 % (11.5-14.5); Red Blood Cell (RBC) Count 4.45 mill/uL (4.20-5.40); White Blood Cell (WBC) Count 6.6 thou/uL (4.8-10.8)
--- NOTE | 2018-05-25 07:06 | PDOC.PN ---
- Subjective Encounter Start Date: 05/25/18 Encounter Start Time: 07:04 Subjective: Seen and examined -seems to be feeling better - Objective Resuscitation Status - Order Detail: 05/24/18 15:48 Resuscitation Status Routine Resuscitation Status: FULL: Full Resuscitation Vital Signs & Weight: Vital Signs (12 hours) Temp Pulse Resp Pulse Ox 05/25/18 03:53 97.4 F L 05/25/18 01:17 108 H 28 H 98 05/24/18 23:32 97.2 F L 05/24/18 20:00 99 05/24/18 19:35 97.7 F Weight Weight 121 lb 9.6 oz Most Recent Monitor Data Heart Rate from ECG 109 NIBP 108/66 NIBP BP-Mean 80 Respiration from ECG 22 SpO2 96 I&O: 05/24/18 05/25/18 05/26/18 06:59 06:59 06:59 Intake Total 330 Output Total 775 Balance -445 Result Diagrams: 05/25/18 06:20 05/24/18 09:22 Phys Exam - Physical Examination Constitutional: NAD HEENT: PERRLA, moist MMs, sclera anicteric, TM's clear Neck: no nodes, no JVD, supple, full ROM Respiratory: no wheezing, no rales, no rhonchi, clear to auscultation bilateral Cardiovascular: no significant murmur, no rub, irregular Gastrointestinal: soft, non-tender, no distention, positive bowel sounds Musculoskeletal: no edema, pulses present Dx/Plan (1) Acute respiratory failure with hypoxia Code(s): J96.01 - ACUTE RESPIRATORY FAILURE WITH HYPOXIA Status: Acute Comment: Improving. (2) CAD (coronary artery disease) Code(s): I25.10 - ATHSCL HEART DISEASE OF [place] CORONARY ARTERY W/O ANG PCTRS Status: Acute (3) COPD exacerbation Code(s): J44.1 - CHRONIC OBSTRUCTIVE PULMONARY DISEASE W (ACUTE) EXACERBATION Status: Acute Comment: Nebs, steroids, oxygen. Pulm consulted and has cleared patient for d/c. (4) Cardiomyopathy Code(s): I42.9 - CARDIOMYOPATHY, UNSPECIFIED Status: Acute Comment: EF 35-40 % (5) Hx of cancer of lung Code(s): Z85.118 - PERSONAL HISTORY OF MALIGNANT NEOPLASM OF BRONCHUS AND LUNG Status: Acute Comment: No follow up with Onc in five years. (6) Hypertension Code(s): I10 - ESSENTIAL (PRIMARY) HYPERTENSION Status: Acute Comment: Yinka. - Plan respiratory therapy Doing good on Cardizem gtt -: Awaiting Cardiology input * .
[2018-05-25 07:15] LABS: Phosphorus 2.7 mg/dL (2.3-4.7)
[2018-05-25 07:16] LABS: Anion Gap 13 mmol/L (10-20); BUN (Urea Nitrogen) 13 mg/dL (9.8-20.1); Calc. Creatinine Clearance 45 mL/min (70-130); Calcium 10.9 mg/dL (7.8-10.44); Carbon Dioxide 26 mmol/L (23-31); Chloride 100 mmol/L (98-107); Estimated GFR-MDRD 67; Glucose 119 mg/dL (83-110); Magnesium 1.4 mg/dL (1.6-2.6); Potassium 4.6 mmol/L (3.5-5.1); Sodium 134 mmol/L (136-145)
[2018-05-25] MEDS ORDERED: Magnesium Sulfate 4 GM in Sodium Chloride 0.9% 250 ML 250 ML IVPB SCH ×2 (08:30→16:00)
[2018-05-25] MEDS ORDERED: Enoxaparin Sodium 40 MG/0.4 ML SYRINGE SC SCH (09:00)
[2018-05-25] MEDS: predniSONE 20 MG TAB PO SCH (09:41)
[2018-05-25] MEDS: Aspirin 81 mg Enteric Coated Tablet PO SCH (09:41)
[2018-05-25] MEDS ORDERED: Diltiazem 125 MG in Sodium Chloride 0.9% 100 ML IVPB SCH (14:52)
--- NOTE | 2018-05-25 15:12 | PRG ---
DATE OF SERVICE: 05/25/2018 SERVICE: Pulmonary Medicine. INTERVAL HISTORY: The patient is doing really well from respiratory standpoint. She is breathing comfortably. Denies any chest pain, fevers, or chills. Her heart rate is still not under good control. Otherwise, she has no complaints. PHYSICAL EXAMINATION: VITAL SIGNS: Afebrile, pulse 115, blood pressure 123/65, respirations 25, and saturation 94% on 2 L nasal cannula. GENERAL: The patient is awake and alert, in no apparent distress. LUNGS: Excellent air entry. There is a slightly prolonged expiratory phase. Wheezing is present. There are also dependent crackles. HEART: Tachycardic. Regular. ABDOMEN: Soft, nontender, and nondistended. Bowel sounds are positive. MUSCULOSKELETAL: No cyanosis or clubbing. There is trace pitting in the bilateral lower extremities. : No Krause catheter. NEUROLOGIC: Grossly nonfocal. LABORATORY DATA: CBC is grossly unremarkable. INR 1.0. Basic metabolic profile is also unremarkable. Magnesium 1.4. Phosphorus 2.7, calcium 10.9. Blood cultures x2 are unremarkable. ASSESSMENT: 1. Acute hypoxic respiratory failure. 2. Atrial fibrillation with rapid ventricular response. 3. Acute on chronic systolic heart failure. 4. Chronic obstructive pulmonary disease with acute exacerbation. DISCUSSION AND PLAN: We will continue our antibiotics, nebulized medications, and a brief course of steroids. We will continue to diurese her down to euvolemia while we attempt to achieve rate control. From my perspective, she is stable for transition out of the ICU to the medical unit. Pulmonary will continue to follow. Job ID: [id number]
[2018-05-25] MEDS: hydrOXYzine 25 MG TAB PO PRN (21:01)
[2018-05-25] MEDS ORDERED: Apixaban 5 MG TAB PO SCH (22:30)
[2018-05-25] MEDS ORDERED: Apixaban 2.5 MG TAB PO SCH (22:45)
[2018-05-25] MEDS: Amiodarone 450 MG in Dextrose 5% in Water 250 ML IVPB SCH (23:03)
--- NOTE | 2018-05-26 01:40 | CON ---
DATE OF CONSULTATION: HISTORY OF PRESENT ILLNESS: Rosalba Fenton is an 82-year-old white female that I have evaluated in the past. I initially saw her in June 2008 for evaluation of dizziness and nausea when she would work in the heat. Echo revealed ejection fraction of 60% to 65% with mild mitral regurgitation and moderate tricuspid regurgitation. It was felt that no further cardiac evaluation is warranted at that time. In August 2012, she had shortness of breath and chest pain and was flown from [place] via helicopter to [facility]. She was evaluated by Dr. Vasquez and was found to have diffuse ST-segment elevation, but no reciprocal changes. She underwent emergent catheterization. There was 50% to 60% distal RCA stenosis, but otherwise unremarkable coronary arteries. Left ventriculogram had an ejection fraction of 10% to 15% and there was mid to distal anterior wall, apex, mid to distal inferior wall akinesis, and hypercontractile segments within the basal segments only. 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 She was placed on appropriate medications- carvedilol and lisinopril. She went to [facility] at [place], but never returned to Dr. Vasquez for followup. Apparently, she was followed up by Dr. Jones, and he told her that her heart strength was excellent and apparently, she had total recovery from the Takotsubo cardiomyopathy. She denies ever having any recurrent chest discomfort. She then was admitted in March 2018 with a cough productive of green sputum and then brown sputum. She had been in [facility] for a few days prior to that and was discharged on erythromycin. She then went to [facility] and then was transferred here for further care. She was treated with antibiotics, steroids, and oxygen with improvement in her symptoms. She states she has continued to have problems with her breathing ever since that hospitalization. There was some concern regarding progression of coronary artery disease. On April 23, 2018, she underwent cardiac PET scan, which was normal without evidence of ischemia or fixed defect. Ejection fraction was 51%. It is of note that echocardiogram when she was in the hospital in March revealed ejection fraction of 35% to 40% with moderate left atrial enlargement, hypokinesis of the septum, mild mitral regurgitation, mitral annular calcification, and aortic valvular sclerosis. She was last seen in the office on May 21, stated that her breathing was worse since she had started a burst of prednisone. She had no evidence of heart failure at that time. Now, she is admitted with worsening shortness of breath, feeling of her heart beating rapidly, which she has never experienced before. She denied any chest discomfort. She came to the hospital and found to have atrial fibrillation with fast ventricular response, She was placed on a Cardizem drip, which has helped to control the rate. PAST MEDICAL HISTORY: Hypercholesterolemia, COPD, lung cancer, Takotsubo cardiomyopathy. OPERATIONS: Cholecystectomy and left lower lobectomy for lung cancer. SOCIAL HISTORY: She stopped smoking 10 years ago. She does not drink alcohol. MEDICATIONS: Include, 1. Aspirin 325 daily. 2. Atorvastatin 10 mg at bedtime. 3. Carvedilol 3.125 b.i.d. 4. Atarax 25 mg q.i.d. p.r.n. 5. Levaquin 750 daily. 6. Losartan 100 mg daily. ALLERGIES: 1. PENICILLIN. 2. HYDROCODONE. 3. OXYCODONE. FAMILY HISTORY: Mother and father of myocardial infarction in their 70s. REVIEW OF SYSTEMS: A 10-point review of systems is, otherwise, unremarkable. PHYSICAL EXAMINATION: VITAL SIGNS: Blood pressure 100/70, pulse of 103, atrial fibrillation on the monitor. HEENT: PERRL. NECK: Supple. CHEST: Reveals expiratory wheezing. CARDIOVASCULAR: S1 and S2 normal without any S3, S4, or murmurs. ABDOMEN: Normal bowel sounds without tenderness or organomegaly. EXTREMITIES: Revealed no clubbing, cyanosis, or edema. NEUROLOGIC: Grossly intact. LABORATORY DATA: EKG reveals atrial fibrillation with rate of 145 per minute, low voltage, nonspecific ST-segment changes. Hemoglobin 12.2, hematocrit 38.9, white count 6600, platelets 489,000. INR 1.0. PH 7.44, pCO2 of 38.2, pO2 of 129.5. Sodium 130, potassium 4.6, chloride 100, carbon dioxide 26, BUN 13, creatinine 0.81. Troponin I is normal x4. IMPRESSION: 1. New onset atrial fibrillation which has never been demonstrated before. 2. Normal cardiac PET scan 1 month ago. 3. History of Takotsubo cardiomyopathy in August 2012 with ejection fraction of 10 % to 15%. at that time. 4. Most recent echo, ejection fraction of 35% to 40%. 5. Hypertension. 6. Hyperlipidemia. 7. History of lung cancer with removal of left lower lobe. 8. Severe chronic obstructive pulmonary disease. PLAN: This patient will be placed on Eliquis 2.5 mg b.i.d.(age over 80 and weight under 60 kg). With her poor left ventricular function and ejection fraction of 35% to 40%, the only antiarrhythmic that can be given would be amiodarone. However, with her severe COPD, there is great concern in regard to that. I would only start her on IV amiodarone in the hope of being able to have her convert to sinus rhythm. I will follow the patient with you. Job ID: [id number] MTDD
[2018-05-26] MEDS: Furosemide 40 MG/4 ML VIAL SLOW IVP SCH ×2 (05:22→15:55)
[2018-05-26 06:26] LABS: Anion Gap 13 mmol/L (10-20); BUN (Urea Nitrogen) 14 mg/dL (9.8-20.1); Calc. Creatinine Clearance 43 mL/min (70-130); Calcium 10.6 mg/dL (7.8-10.44); Carbon Dioxide 25 mmol/L (23-31); Chloride 97 mmol/L (98-107); Estimated GFR-MDRD 66; Glucose 118 mg/dL (83-110); Magnesium 2.7 mg/dL (1.6-2.6); Potassium 3.9 mmol/L (3.5-5.1); Sodium 131 mmol/L (136-145)
--- NOTE | 2018-05-26 08:36 | PRG ---
DATE OF SERVICE: 05/26/2018 SUBJECTIVE: The patient is doing reasonably well this morning. She had no new complaints. OBJECTIVE: VITAL SIGNS: On exam, her temperature is 98.0, blood pressure 113/86, pulse 79, and O2 sat 97%. HEENT: Unremarkable. NECK: No JVD. CARDIAC: S1 and S2, irregularly irregular. LUNGS: Fairly clear without wheezing. ABDOMEN: Soft and nontender. EXTREMITIES: No edema. LABORATORY DATA: Sodium 131, potassium 3.9, chloride 97, CO2 of 25, BUN 14, creatinine 0.8, and glucose 118. ASSESSMENT: 1. Congestive heart failure. 2. Cardiomyopathy with ejection fraction now 35% to 40%. 3. History of lung cancer, left lower lobectomy. 4. Chronic obstructive pulmonary disease. PLAN: 1. She is stable to transfer to telemetry from my standpoint. 2. Continue nebulization therapy. 3. Finish steroids in a couple of days. Job ID: [id number]
[2018-05-26] MEDS: Apixaban 2.5 MG TAB PO SCH ×2 (09:40→20:38)
[2018-05-26] MEDS: predniSONE 20 MG TAB PO SCH (09:40)
[2018-05-26] MEDS: Aspirin 81 mg Enteric Coated Tablet PO SCH (09:40)
--- NOTE | 2018-05-26 11:18 | PDOC.PN ---
- Subjective Encounter Start Date: 05/26/18 Encounter Start Time: 12:30 Subjective: Patient with some improvement in SOB. No cough currently. No -: chest pain. Heart rate improved overnight but still in A-fib. - Objective Resuscitation Status - Order Detail: 05/24/18 15:48 Resuscitation Status Routine Resuscitation Status: FULL: Full Resuscitation MAR Reviewed: Yes Vital Signs & Weight: Vital Signs (12 hours) Temp Pulse Pulse Pulse Resp BP BP 05/26/18 09:33 83 90 106/70 110/78 05/26/18 08:00 05/26/18 07:35 98.0 F 05/26/18 07:10 89 24 H 05/26/18 04:01 97.2 F L 05/25/18 23:21 98.3 F Pulse Ox Pulse Ox Pulse Ox 05/26/18 09:33 98 95 05/26/18 08:00 98 05/26/18 07:35 05/26/18 07:10 98 05/26/18 04:01 05/25/18 23:21 Weight Weight 118 lb 14.4 oz Most Recent Monitor Data Heart Rate from ECG 79 NIBP 134/70 NIBP BP-Mean 91 Respiration from ECG 27 SpO2 95 I&O: 05/25/18 05/26/18 05/27/18 06:59 06:59 06:59 Intake Total 330 550 Output Total 775 3010 225 Balance -445 -1900 -225 Result Diagrams: 05/25/18 06:20 05/26/18 05:41 EKG Reviewed by me: Yes (tele with afib, running about 100 bpm now) Phys Exam - Physical Examination Constitutional: NAD HEENT: moist MMs Respiratory: no wheezing, no rales, no rhonchi Cardiovascular: no significant murmur, irregular Gastrointestinal: soft, positive bowel sounds Musculoskeletal: edema present trace edema Neurological: non-focal, moves all 4 limbs Psychiatric: normal affect, A&O x 3 Dx/Plan (1) Acute respiratory failure with hypoxia Code(s): J96.01 - ACUTE RESPIRATORY FAILURE WITH HYPOXIA Status: Acute Comment: Improving. (2) Systolic CHF Code(s): I50.20 - UNSPECIFIED SYSTOLIC (CONGESTIVE) HEART FAILURE Status: Acute Qualifiers: Heart failure chronicity: acute on chronic Qualified Code(s): I50.23 - Acute on chronic systolic (congestive) heart failure Comment: EF 30-40%, non-ischemic cardiomyopathy, on Lasix (3) Atrial fibrillation Code(s): I48.91 - UNSPECIFIED ATRIAL FIBRILLATION Status: Acute Comment: attempting to convert to SR with Amiodarone drip, on Eliquis (4) COPD exacerbation Code(s): J44.1 - CHRONIC OBSTRUCTIVE PULMONARY DISEASE W (ACUTE) EXACERBATION Status: Acute Comment: Nebs, steroids, oxygen. Pulmonary following, recommends a couple more days of steroids. (5) Elevated troponin Code(s): R74.8 - ABNORMAL LEVELS OF OTHER SERUM ENZYMES Status: Acute Comment: indeterminate, no signficant elevation, Dr. Jo doesn't suspect significant CAD in this patient, not thought to be NSTEMI (6) Hx of cancer of lung Code(s): Z85.118 - PERSONAL HISTORY OF MALIGNANT NEOPLASM OF BRONCHUS AND LUNG Status: Acute Comment: No follow up with Onc in five years. Previous lung CA resection (7) Hypertension Code(s): I10 - ESSENTIAL (PRIMARY) HYPERTENSION Status: Acute Comment: karl Honeycutt - Plan cont current plan of care, PT/OT, respiratory therapy * . - Discharge Day Encounter end time: 12:40 Pulmonology Consult: Meds - Medications MAR Reviewed: Yes Medications: Current Medications Acetaminophen (Tylenol) 650 mg PO Q4H PRN PRN Reason: Headache/Fever/Mild Pain (1-3) Albuterol/Ipratropium (Duoneb) 3 ml NEB [id number] [facility] Last Admin: 05/26/18 07:10 Dose: 3 ml Apixaban (Eliquis) 2.5 mg PO BID [facility] Last Admin: 05/26/18 09:40 Dose: 2.5 mg Aspirin (Ecotrin) 81 mg PO DAILY [facility] Last Admin: 05/26/18 09:40 Dose: 81 mg Bisacodyl (Dulcolax) 10 mg NV DAILYPRN PRN PRN Reason: Constipation Furosemide (Lasix) 40 mg SLOW IVP 0600,1400 [facility] Last Admin: 05/26/18 05:22 Dose: 40 mg Hydroxyzine HCl (Atarax) 25 mg PO Q6H PRN PRN Reason: Itching Last Admin: 05/25/18 21:01 Dose: 25 mg Diltiazem HCl 125 mg/ Sodium (Chloride) 125 mls @ 10 mls/hr IVPB INF DESIREE; Protocol Amiodarone HCl 450 mg/ (Dextrose/Water) 259 mls @ 0 mls/hr IVPB INF DESIREE; Protocol Last Admin: 05/25/18 23:03 Dose: 259 mls Prednisone (Prednisone) 40 mg PO QAM- DESIREE Stop: 05/28/18 08:01 Last Admin: 05/26/18 09:40 Dose: 40 mg Senna/Docusate Sodium (Senokot S) 2 tab PO BIDPRN PRN PRN Reason: Constipation - Allergies Allergies/Adverse Reactions: Allergies Allergy/AdvReac Type Severity Reaction Status Date / Time oxycodone HCl Allergy Hives Verified 09/14/12 21:57 [From OxyContin] Penicillins Allergy Rash Verified 09/14/12 21:57 hydrocodone AdvReac Verified 09/14/12 21:55
[2018-05-26] MEDS: Carvedilol 3.125 MG TAB PO SCH (17:44)
[2018-05-26] MEDS: hydrOXYzine 25 MG TAB PO PRN (20:38)
[2018-05-26] MEDS: Atorvastatin Calcium 10 MG TAB PO SCH (20:38)
[2018-05-26] MEDS: Amiodarone 450 MG in Dextrose 5% in Water 250 ML IVPB SCH (22:10)
[2018-05-27] MEDS ORDERED: Furosemide 40 MG/4 ML VIAL ONE (05:39)
[2018-05-27] MEDS: Furosemide 40 MG/4 ML VIAL SLOW IVP SCH ×2 (06:22→13:51)
[2018-05-27 06:40] LABS: Anion Gap 11 mmol/L (10-20); BUN (Urea Nitrogen) 15 mg/dL (9.8-20.1); Calc. Creatinine Clearance 41 mL/min (70-130); Calcium 10.4 mg/dL (7.8-10.44); Carbon Dioxide 29 mmol/L (23-31); Chloride 95 mmol/L (98-107); Estimated GFR-MDRD 63; Glucose 92 mg/dL (83-110); Magnesium 1.9 mg/dL (1.6-2.6); Phosphorus 3.1 mg/dL (2.3-4.7); Potassium 3.7 mmol/L (3.5-5.1); Sodium 131 mmol/L (136-145)
--- NOTE | 2018-05-27 09:30 | PDOC.PN ---
- Subjective Encounter Start Date: 05/27/18 Encounter Start Time: 11:50 Subjective: Patient unchanged. SOB stable. No fever. Heart still quite fast. - Objective Resuscitation Status - Order Detail: 05/24/18 15:48 Resuscitation Status Routine Resuscitation Status: FULL: Full Resuscitation MAR Reviewed: Yes Vital Signs & Weight: Vital Signs (12 hours) Temp Pulse Resp Pulse Ox 05/27/18 07:58 97 05/27/18 07:54 87 20 92 L 05/27/18 07:25 97.9 F 05/27/18 04:25 98.0 F 05/27/18 00:37 97.6 F 05/26/18 23:18 75 16 97 Weight Weight 118 lb 14.4 oz Most Recent Monitor Data Heart Rate from ECG 76 NIBP 126/87 NIBP BP-Mean 100 Respiration from ECG 24 SpO2 97 I&O: 05/26/18 05/27/18 05/28/18 06:59 06:59 06:59 Intake Total 550 500 Output Total 2450 1025 Balance -1900 -525 Result Diagrams: 05/25/18 06:20 05/27/18 06:04 Phys Exam - Physical Examination Constitutional: NAD HEENT: moist MMs Respiratory: no wheezing, no rales, no rhonchi Cardiovascular: no significant murmur, irregular tachycardic Gastrointestinal: soft, positive bowel sounds Neurological: non-focal, moves all 4 limbs Psychiatric: normal affect, A&O x 3 Dx/Plan (1) Acute respiratory failure with hypoxia Code(s): J96.01 - ACUTE RESPIRATORY FAILURE WITH HYPOXIA Status: Acute Comment: Improving. (2) Systolic CHF Code(s): I50.20 - UNSPECIFIED SYSTOLIC (CONGESTIVE) HEART FAILURE Status: Acute Qualifiers: Heart failure chronicity: acute on chronic Qualified Code(s): I50.23 - Acute on chronic systolic (congestive) heart failure Comment: EF 30-40%, non-ischemic cardiomyopathy, on Lasix (3) Atrial fibrillation Code(s): I48.91 - UNSPECIFIED ATRIAL FIBRILLATION Status: Acute Comment: attempting to convert to SR with Amiodarone drip, on Eliquis (4) COPD exacerbation Code(s): J44.1 - CHRONIC OBSTRUCTIVE PULMONARY DISEASE W (ACUTE) EXACERBATION Status: Acute Comment: Nebs, steroids, oxygen. Pulmonary following, recommends a couple more days of steroids. (5) Elevated troponin Code(s): R74.8 - ABNORMAL LEVELS OF OTHER SERUM ENZYMES Status: Acute Comment: indeterminate, no signficant elevation, Dr. Jo doesn't suspect significant CAD in this patient, not thought to be NSTEMI (6) Hx of cancer of lung Code(s): Z85.118 - PERSONAL HISTORY OF MALIGNANT NEOPLASM OF BRONCHUS AND LUNG Status: Acute Comment: No follow up with Onc in five years. Previous lung CA resection (7) Hypertension Code(s): I10 - ESSENTIAL (PRIMARY) HYPERTENSION Status: Acute Comment: karl Honeycutt - Plan cont current plan of care, respiratory therapy Plan for afib per Dr. Jo * . - Discharge Day Encounter end time: 12:00
--- NOTE | 2018-05-27 10:08 | PRG ---
DATE OF SERVICE: 05/27/2018 SUBJECTIVE: The patient is doing reasonably well. She is still in atrial fibrillation, but is rate controlled with amiodarone. OBJECTIVE: VITAL SIGNS: Temperature is 97.9, pulse , respiratory rate 20, O2 saturation 92% on 2 L, and blood pressure 156/87. HEENT: Unremarkable. NECK: No adenopathy or JVD. LUNGS: Bilateral mild wheezing. CARDIAC: S1 and S2, irregularly irregular, but rate controlled. ABDOMEN: Soft. EXTREMITIES: No edema. LABORATORY DATA: Sodium 131, potassium 3.7, BUN 15, creatinine 0.8, and glucose 92. ASSESSMENT: 1. Atrial fibrillation. 2. Chronic obstructive pulmonary disease with exacerbation. PLAN: 1. Continue nebulization treatments. 2. Continue low-dose steroids. 3. I will add a long-acting beta agonist and inhaled steroid. Job ID: [id number]
[2018-05-27] MEDS: Aspirin 81 mg Enteric Coated Tablet PO SCH (10:25)
[2018-05-27] MEDS: predniSONE 20 MG TAB PO SCH (10:25)
[2018-05-27] MEDS: Apixaban 2.5 MG TAB PO SCH ×2 (10:25→20:28)
[2018-05-27] MEDS: Carvedilol 3.125 MG TAB PO SCH ×2 (10:26→17:22)
[2018-05-27] MEDS: Losartan 25 MG TAB PO SCH (10:26)
[2018-05-27] MEDS ORDERED: Diltiazem 125 MG in Sodium Chloride 0.9% 100 ML IVPB SCH (17:19)
[2018-05-27] MEDS: Arformoterol 15 MCG/2 ML NEB NEB SCH (18:29)
[2018-05-27] MEDS: Budesonide 0.5 MG/2 ML NEB INH SCH (18:30)
[2018-05-27] MEDS: Atorvastatin Calcium 10 MG TAB PO SCH (20:28)
[2018-05-27] MEDS: hydrOXYzine 25 MG TAB PO PRN (21:36)
[2018-05-28] MEDS: Furosemide 40 MG/4 ML VIAL SLOW IVP SCH (06:10)
[2018-05-28 06:40] LABS: Phosphorus 2.8 mg/dL (2.3-4.7)
[2018-05-28 06:41] LABS: Anion Gap 8 mmol/L (10-20); BUN (Urea Nitrogen) 17 mg/dL (9.8-20.1); Calc. Creatinine Clearance 47 mL/min (70-130); Calcium 9.8 mg/dL (7.8-10.44); Carbon Dioxide 33 mmol/L (23-31); Chloride 95 mmol/L (98-107); Estimated GFR-MDRD 70; Glucose 78 mg/dL (83-110); Magnesium 1.5 mg/dL (1.6-2.6); Sodium 133 mmol/L (136-145)
[2018-05-28 06:43] LABS: Potassium 2.9 mmol/L (3.5-5.1)
[2018-05-28] MEDS: Budesonide 0.5 MG/2 ML NEB INH SCH ×2 (06:47→18:46)
[2018-05-28] MEDS: Arformoterol 15 MCG/2 ML NEB NEB SCH ×2 (06:47→18:46)
[2018-05-28] MEDS ORDERED: Potassium Chloride 20 MEQ TAB PO SCH (07:00)
[2018-05-28] MEDS: Carvedilol 3.125 MG TAB PO SCH ×2 (08:46→16:51)
[2018-05-28] MEDS: predniSONE 20 MG TAB PO SCH (08:47)
[2018-05-28] MEDS: Losartan 25 MG TAB PO SCH (08:47)
[2018-05-28] MEDS: Apixaban 2.5 MG TAB PO SCH ×3 (08:47→20:00)
[2018-05-28] MEDS: Aspirin 81 mg Enteric Coated Tablet PO SCH (08:47)
--- NOTE | 2018-05-28 09:02 | PRG ---
DATE OF SERVICE: 05/28/2018 SUBJECTIVE: Doing better. She is up in a chair. Has no acute complaints. OBJECTIVE: VITAL SIGNS: Temperature 98.2, pulse 65, blood pressure 136/81, O2 saturation 100%. She is currently on a Cardizem drip at 5 mg/hour. HEENT: Unremarkable. NECK: No JVD. CARDIAC: S1 and S2. Irregularly regular. LUNGS: Clear. ABDOMEN: Soft. EXTREMITIES: No edema. LABORATORY DATA: Sodium 133, potassium 2.9, chloride 95, CO2 33, BUN 70, creatinine 0.7, and glucose 78. ASSESSMENT: 1. Atrial fibrillation. 2. Chronic obstructive pulmonary disease. 3. Hypokalemia. PLAN: 1. Transfer to telemetry. 2. Stop IV diuresis and switch to oral. 3. She received some potassium this morning, but probably needs another dose this afternoon. Job ID: [id number]
--- NOTE | 2018-05-28 10:13 | PDOC.PN ---
- Subjective Encounter Start Date: 05/28/18 Encounter Start Time: 11:40 Subjective: Patient without complaints. SOB markedly improved. No chest pain. -: Back in sinus rhythm on the floor. Off Amiodarone, just on cardizem drip. - Objective Resuscitation Status - Order Detail: 05/24/18 15:48 Resuscitation Status Routine Resuscitation Status: FULL: Full Resuscitation MAR Reviewed: Yes Vital Signs & Weight: Vital Signs (12 hours) Temp Pulse Resp Pulse Ox 05/28/18 08:00 90 L 05/28/18 07:05 98.2 F 05/28/18 06:57 95 05/28/18 06:47 71 20 95 05/28/18 04:10 97.9 F 05/28/18 00:18 99.1 F 05/28/18 00:11 70 21 H 97 Weight Weight 121 lb 11.2 oz Most Recent Monitor Data Heart Rate from ECG 102 NIBP 135/81 NIBP BP-Mean 99 Respiration from ECG 14 SpO2 98 I&O: 05/27/18 05/28/18 05/29/18 06:59 06:59 06:59 Intake Total 500 1600 Output Total 1025 900 Balance -525 700 Result Diagrams: 05/25/18 06:20 05/28/18 05:50 EKG Reviewed by me: Yes (sinus rhythm with PACs on tele monitor) Phys Exam - Physical Examination Constitutional: NAD HEENT: moist MMs Respiratory: no wheezing, no rales, no rhonchi, clear to auscultation bilateral Cardiovascular: RRR, no significant murmur Gastrointestinal: soft, positive bowel sounds Musculoskeletal: no edema Neurological: non-focal Psychiatric: normal affect, A&O x 3 Dx/Plan (1) Acute respiratory failure with hypoxia Code(s): J96.01 - ACUTE RESPIRATORY FAILURE WITH HYPOXIA Status: Acute Comment: Improving. (2) Systolic CHF Code(s): I50.20 - UNSPECIFIED SYSTOLIC (CONGESTIVE) HEART FAILURE Status: Acute Qualifiers: Heart failure chronicity: acute on chronic Qualified Code(s): I50.23 - Acute on chronic systolic (congestive) heart failure Comment: EF 30-40%, non-ischemic cardiomyopathy, on Lasix (3) Atrial fibrillation Code(s): I48.91 - UNSPECIFIED ATRIAL FIBRILLATION Status: Acute Comment: Amiodarone discontinued, on Cardizem, on Eliquis (4) COPD exacerbation Code(s): J44.1 - CHRONIC OBSTRUCTIVE PULMONARY DISEASE W (ACUTE) EXACERBATION Status: Acute Comment: Nebs, steroids, oxygen. Pulmonary following, recommends a couple more days of steroids. (5) Elevated troponin Code(s): R74.8 - ABNORMAL LEVELS OF OTHER SERUM ENZYMES Status: Acute Comment: indeterminate, no signficant elevation, Dr. Jo doesn't suspect significant CAD in this patient, not thought to be NSTEMI (6) Hx of cancer of lung Code(s): Z85.118 - PERSONAL HISTORY OF MALIGNANT NEOPLASM OF BRONCHUS AND LUNG Status: Acute Comment: No follow up with Onc in five years. Previous lung CA resection (7) Hypertension Code(s): I10 - ESSENTIAL (PRIMARY) HYPERTENSION Status: Acute Comment: karl Honeycutt - Plan cont current plan of care, PT/OT, respiratory therapy, out of bed/ambulate * . - Discharge Day Encounter end time: 11:50 Pulmonology Consult: Meds - Medications MAR Reviewed: Yes Medications: Current Medications Acetaminophen (Tylenol) 650 mg PO Q4H PRN PRN Reason: Headache/Fever/Mild Pain (1-3) Albuterol/Ipratropium (Duoneb) 3 ml NEB [id number] [facility] Last Admin: 05/28/18 06:47 Dose: 3 ml Apixaban (Eliquis) 2.5 mg PO BID [facility] Last Admin: 05/28/18 08:47 Dose: 2.5 mg Arformoterol Tartrate (Brovana) 15 mcg NEB BID-RT [facility] Last Admin: 05/28/18 06:47 Dose: 15 mcg Aspirin (Ecotrin) 81 mg PO DAILY [facility] Last Admin: 05/28/18 08:47 Dose: 81 mg Atorvastatin Calcium (Lipitor) 10 mg PO HS [facility] Last Admin: 05/27/18 20:28 Dose: 10 mg Bisacodyl (Dulcolax) 10 mg CO DAILYPRN PRN PRN Reason: Constipation Budesonide (Pulmicort Neb Solution) 0.5 mg INH BID-RT [facility] Last Admin: 05/28/18 06:47 Dose: 0.5 mg Carvedilol (Coreg) 3.125 mg PO BID-WM [facility] Last Admin: 05/28/18 08:46 Dose: 3.125 mg Furosemide (Lasix) 20 mg PO DAILY [facility] Hydroxyzine HCl (Atarax) 25 mg PO Q6H PRN PRN Reason: Itching Last Admin: 05/27/18 21:36 Dose: 25 mg Diltiazem HCl 125 mg/ Sodium (Chloride) 125 mls @ 5 mls/hr IVPB INF DESIREE; Protocol Last Admin: 05/28/18 06:10 Dose: 125 mls Losartan Potassium (Cozaar) 100 mg PO DAILY [facility] Last Admin: 05/28/18 08:47 Dose: 100 mg Potassium Chloride (K-Dur) 40 meq PO 1500 DESIREE Senna/Docusate Sodium (Senokot S) 2 tab PO BIDPRN PRN PRN Reason: Constipation Sodium Chloride (Flush - Normal Saline) 10 ml IVF Q12HR [facility] Last Admin: 05/28/18 08:48 Dose: 10 ml Sodium Chloride (Flush - Normal Saline) 10 ml IVF PRN PRN PRN Reason: Saline Flush - Allergies Allergies/Adverse Reactions: Allergies Allergy/AdvReac Type Severity Reaction Status Date / Time oxycodone HCl Allergy Hives Verified 09/14/12 21:57 [From OxyContin] Penicillins Allergy Rash Verified 09/14/12 21:57 hydrocodone AdvReac Verified 09/14/12 21:55
[2018-05-28] MEDS: Potassium Chloride 20 MEQ TAB PO SCH (15:23)
[2018-05-28] MEDS: Atorvastatin Calcium 10 MG TAB PO SCH (20:00)
[2018-05-29] MEDS: hydrOXYzine 25 MG TAB PO PRN ×2 (02:20→20:19)
[2018-05-29 05:50] LABS: Anion Gap 11 mmol/L (10-20); BUN (Urea Nitrogen) 23 mg/dL (9.8-20.1); Calc. Creatinine Clearance 43 mL/min (70-130); Calcium 9.9 mg/dL (7.8-10.44); Carbon Dioxide 29 mmol/L (23-31); Chloride 95 mmol/L (98-107); Estimated GFR-MDRD 65; Glucose 92 mg/dL (83-110); Magnesium 1.3 mg/dL (1.6-2.6); Potassium 3.7 mmol/L (3.5-5.1); Sodium 131 mmol/L (136-145)
[2018-05-29] MEDS: Budesonide 0.5 MG/2 ML NEB INH SCH ×2 (06:51→19:42)
[2018-05-29] MEDS: Arformoterol 15 MCG/2 ML NEB NEB SCH ×2 (06:52→19:45)
--- NOTE | 2018-05-29 08:08 | PDOC.PN ---
- Subjective Encounter Start Date: 05/29/18 Encounter Start Time: 10:30 Subjective: Patient without SOB. Did go back into aflutter this AM, started -: back on diltiazem drip. - Objective Resuscitation Status - Order Detail: 05/24/18 15:48 Resuscitation Status Routine Resuscitation Status: FULL: Full Resuscitation MAR Reviewed: Yes Vital Signs & Weight: Vital Signs (12 hours) Temp Pulse Resp BP Pulse Ox 05/29/18 07:32 97.8 F 101 H 18 162/98 H 99 05/29/18 06:53 91 L 05/29/18 06:49 73 16 91 L 05/29/18 04:00 98 F 86 18 131/59 L 96 05/29/18 00:10 74 16 95 05/29/18 00:00 98.7 F 85 16 120/59 L 90 L Weight Weight 129 lb 12.8 oz Most Recent Monitor Data Heart Rate from ECG 102 NIBP 135/81 NIBP BP-Mean 99 Respiration from ECG 14 SpO2 98 I&O: 05/28/18 05/29/18 05/30/18 06:59 06:59 06:59 Intake Total 1600 1476 Output Total 900 500 Balance 700 976 Result Diagrams: 05/25/18 06:20 05/29/18 05:22 EKG Reviewed by me: Yes (tele with aflutter with irregular block, 120 BPM) Phys Exam - Physical Examination Constitutional: NAD HEENT: moist MMs Respiratory: no wheezing, no rales, no rhonchi, clear to auscultation bilateral Cardiovascular: no significant murmur, irregular Gastrointestinal: soft, positive bowel sounds Neurological: non-focal, moves all 4 limbs Psychiatric: normal affect, A&O x 3 Dx/Plan (1) Acute respiratory failure with hypoxia Code(s): J96.01 - ACUTE RESPIRATORY FAILURE WITH HYPOXIA Status: Acute Comment: Improving. (2) Systolic CHF Code(s): I50.20 - UNSPECIFIED SYSTOLIC (CONGESTIVE) HEART FAILURE Status: Acute Qualifiers: Heart failure chronicity: acute on chronic Qualified Code(s): I50.23 - Acute on chronic systolic (congestive) heart failure Comment: EF 30-40%, non-ischemic cardiomyopathy, on Lasix (3) Atrial fibrillation Code(s): I48.91 - UNSPECIFIED ATRIAL FIBRILLATION Status: Acute Comment: on Eliquis, Amiodarone discontinued, Cardizem drip stopped yesterday, return to Aflutter this AM, will consult EP and restart drip (4) COPD exacerbation Code(s): J44.1 - CHRONIC OBSTRUCTIVE PULMONARY DISEASE W (ACUTE) EXACERBATION Status: Acute Comment: Nebs, steroids, oxygen. Pulmonary following, recommends a couple more days of steroids. (5) Elevated troponin Code(s): R74.8 - ABNORMAL LEVELS OF OTHER SERUM ENZYMES Status: Acute Comment: indeterminate, no signficant elevation, Dr. Jo doesn't suspect significant CAD in this patient, not thought to be NSTEMI (6) Hx of cancer of lung Code(s): Z85.118 - PERSONAL HISTORY OF MALIGNANT NEOPLASM OF BRONCHUS AND LUNG Status: Acute Comment: No follow up with Onc in five years. Previous lung CA resection (7) Hypertension Code(s): I10 - ESSENTIAL (PRIMARY) HYPERTENSION Status: Acute Comment: karl Honeycutt - Plan cont current plan of care * . - Discharge Day Encounter end time: 10:40
[2018-05-29 08:20] LABS: Phosphorus 2.2 mg/dL (2.3-4.7)
[2018-05-29] MEDS: Losartan 25 MG TAB PO SCH (09:23)
[2018-05-29] MEDS: Carvedilol 3.125 MG TAB PO SCH ×2 (09:23→16:38)
[2018-05-29] MEDS: Apixaban 2.5 MG TAB PO SCH ×2 (09:23→20:19)
[2018-05-29] MEDS: Furosemide 20 MG TAB PO SCH (09:23)
[2018-05-29] MEDS: Aspirin 81 mg Enteric Coated Tablet PO SCH (09:23)
--- NOTE | 2018-05-29 09:28 | PRG ---
DATE OF SERVICE: 05/29/2018 SUBJECTIVE: The patient is doing reasonably well and wants to go home. OBJECTIVE: VITAL SIGNS: Temperature 97.8, pulse 101, respirations 18, O2 saturation 99%, and blood pressure 160/98. HEENT: Unremarkable. NECK: No JVD. CHEST: Clear to auscultation without wheezing. CARDIAC: S1 and S2, regular. ABDOMEN: Soft. EXTREMITIES: No edema. LABORATORY DATA: Sodium 131, potassium 3.7, chloride 95, CO2 of 29, BUN 23, creatinine 0.8, glucose 92, magnesium 1.3. ASSESSMENT: Chronic obstructive pulmonary disease, clinically stable, on current inhalers. The patient is now off prednisone. Main issue now is rate control of her atrial fibrillation. PLAN: 1. Continue inhalers. 2. Stable for discharge home from Pulmonary standpoint. Job ID: [id number]
[2018-05-29] MEDS: Diltiazem 125 MG in Sodium Chloride 0.9% 100 ML IVPB SCH (10:11)
[2018-05-29] MEDS: Potassium Chloride 20 MEQ TAB PO SCH (14:02)
[2018-05-29] MEDS ORDERED: Magnesium 2 GM/50 ML 2 GM in Premix Bag 1 BAG IVPB SCH (15:00)
--- NOTE | 2018-05-29 15:55 | EKG ---
Test Reason : Blood Pressure : / mmHG Vent. Rate : 098 BPM Atrial Rate : 300 BPM P-R Int : 000 ms QRS Dur : 082 ms QT Int : 358 ms P-R-T Axes : 000 038 032 degrees QTc Int : 457 ms Atrial fibrillation Abnormal ECG Confirmed by GONZALO SERRANO ([id number]) on 05/29/2018 3:55:09 PM Referred By: HOPE Confirmed By:GONZALO SERRANO
--- NOTE | 2018-05-29 16:48 | CON ---
DATE OF CONSULTATION: 05/29/2018 REFERRING PHYSICIAN: Moncho Jo MD REASON FOR CONSULTATION: Atrial fibrillation. HISTORY OF PRESENT ILLNESS: Ms. Fenton is an 82-year-old female who is an established patient of Dr. Jo. She presented to the hospital recently for heart racing and palpitations. Also reporting increasing shortness of breath. She has never had abnormal heart rhythms before. She has never experienced palpitations. She was placed on a Cardizem drip and started on amiodarone. Initially, she was in atrial flutter, which then turned into atrial fibrillation. She has recently been in and out of the hospital for respiratory infections. Of note, she has had a left lower lobe removal in 2012 for lung cancer of some sort. Echocardiogram performed on April 23, 2018 showed an ejection fraction of 35% to 40% with mild left atrial enlargement and some hypokinesis of the septum. She did undergo cardiac PET scan which was negative and did not suggest any ischemia or fixed defect and the ejection fraction on that scan was 51%. Ms. Fenton currently is resting in bed. She has not experienced any heart racing or palpitations currently. She denies any associated chest pain, stroke, or stroke-like symptoms. She has not had any dizziness or syncopal episodes. Also of note, shortly after having her left lower lobe resected, she was diagnosed with takotsubo cardiomyopathy as well. PAST MEDICAL HISTORY: 1. Hypercholesterolemia. 2. COPD. 3. Lung cancer status post left lower lobe resection. 4. Takotsubo cardiomyopathy. REVIEW OF SYSTEMS: A 12-point review of systems was conducted and is negative except that is listed above in the HPI. SURGICAL HISTORY: Cholecystectomy and left lower lobectomy for lung cancer. SOCIAL HISTORY: Denies alcohol, tobacco, or illicit drug use. Prior tobacco use, but quit 10 years ago. FAMILY HISTORY: Noncontributory. Both parents of myocardial infarctions in her 70s, but not early-onset. ALLERGIES: PENICILLIN, HYDROCODONE, AND OXYCODONE. MEDICATIONS: Include: 1. Aspirin 325 mg daily. 2. Atorvastatin 10 mg at bedtime. 3. Carvedilol 3.125 mg b.i.d. 4. Atarax 25 mg q.i.d. p.r.n. 5. Levaquin 750 mg daily. 6. Losartan 100 mg daily. PHYSICAL EXAMINATION: VITAL SIGNS: Temperature 97.6, pulse 87, blood pressure is 137/90, respirations 16, oxygen is 94% on room air. GENERAL: This is a well-groomed, well-nourished woman. She is in no apparent distress. She does appear her stated age. She is resting comfortably in the bed during the exam. HEENT: She is normocephalic. NECK: Supple without jugular venous distention. LUNGS: Have slight expiratory wheeze, but otherwise are clear to auscultation throughout. Respirations are even and unlabored. HEART: Rate is irregularly irregular. PMI is nondisplaced. ABDOMEN: Soft and nontender without palpable masses. EXTREMITIES: Warm and dry to touch without clubbing, cyanosis, or edema. NEUROLOGIC: Grossly intact and nonfocal. Gait was not assessed. DATABASE: Telemetry and EKGs were all personally reviewed initially reflecting atrial flutter with RVR, currently in atrial fibrillation. LABORATORY DATA: WBC 6.6, hemoglobin 12.2, hematocrit 38.9, platelet count is 489. Chemistry; potassium 3.7, creatinine 0.84, magnesium 1.3. IMPRESSION: 1. Persistent atrial fibrillation and atrial flutter with rapid ventricular response despite transient amiodarone use and IV diltiazem. 2. Frail/elderly with a history of lung resection and cancer in 2013. 3. Advanced chronic obstructive pulmonary disease. 4. Current anticoagulation on Eliquis 2.5 mg p.o. b.i.d. for advanced age over 80 and weight under 133 pounds. 5. Worsening ejection fraction recently estimated at 35% to 40%, but previously preserved. 6. Difficult to achieve rate control and limited antiarrhythmic options given her medical comorbidities. PLAN AND RECOMMENDATIONS: With her advanced COPD and lung disease and also with cardiomyopathy, we have limited antiarrhythmic options for her. Her rate control may prove difficult to manage off amiodarone and on IV diltiazem. Consideration could be for Tikosyn following an amiodarone washout, but recurrence is also possible. We discussed treatment options including rate control, antiarrhythmic therapy, cardioversion, ablation, and also pacemaker with AV node ablation. For now continue rate control, if that fails consider His/biventricular pacemaker implant and eventual AV node ablation once pacemaker maturation has occurred. The patient agrees with this decision and agrees to move forward to the pacemaker which will be scheduled for tomorrow. We discussed the risks, benefits, and alternatives. Thank you for allowing us to participate in the care of this patient. We will continue to follow. Job ID: [id number] MTDD
[2018-05-29] MEDS: Atorvastatin Calcium 10 MG TAB PO SCH (20:19)
[2018-05-30 06:09] LABS: Anion Gap 12 mmol/L (10-20); BUN (Urea Nitrogen) 20 mg/dL (9.8-20.1); Calc. Creatinine Clearance 53 mL/min (70-130); Calcium 9.7 mg/dL (7.8-10.44); Carbon Dioxide 23 mmol/L (23-31); Chloride 100 mmol/L (98-107); Estimated GFR-MDRD 76; Glucose 72 mg/dL (83-110); Magnesium 2.2 mg/dL (1.6-2.6); Sodium 130 mmol/L (136-145)
[2018-05-30 07:10] LABS: Phosphorus 2.9 mg/dL (2.3-4.7)
[2018-05-30] MEDS: Budesonide 0.5 MG/2 ML NEB INH SCH ×2 (07:14→19:14)
[2018-05-30] MEDS: Arformoterol 15 MCG/2 ML NEB NEB SCH ×2 (07:23→19:14)
[2018-05-30] MEDS: Diltiazem 125 MG in Sodium Chloride 0.9% 100 ML IVPB SCH (10:11)
--- NOTE | 2018-05-30 12:18 | PDOC.CTH ---
Cardiology Progress Note - Subjective EP PROGRESS NOTE: 05/30/18 Seen as follow up for atrial fibrillation and flutter with RVR. Feels somewhat better today. No further palpitations or sensation of heart racing. No cardiac concerns or complaints today. - Objective Vital Signs Temp Pulse Resp BP Pulse Ox 05/30/18 11:28 97.3 F L 99 18 140/98 H 96 05/30/18 07:29 97.4 F L 94 18 143/60 H 95 05/30/18 07:23 94 16 05/30/18 07:16 95 05/30/18 07:14 91 16 05/30/18 04:00 97.9 F 93 18 126/66 96 Weight 128 lb 12.8 oz 05/29/18 05/30/18 05/31/18 06:59 06:59 06:59 Intake Total 1476 2034 Output Total 500 1930 Balance 976 104 - Physical Examination General/Neuro: alert & oriented x3, NAD Neck: carotid US brisk, no JVD present Lungs: CTA (LLL absent), unlabored respirations Heart: PMI normal Abdomen: NT/ND, soft - Telemetry Telemetry Rhythm: AF VR 100-115 - Labs Result Diagrams: 05/25/18 06:20 05/30/18 05:31 Troponin/CKMB CK-MB (CK-2) 3.1 ng/mL (0-6.6) 05/24/18 09:22 Troponin I 0.020 ng/mL (< 0.028) 05/25/18 00:31 - Assessment/Plan 1. Atrial arrhythmias, newly diagnosed - atrial flutter --> atrial fibrillation - on diltiazem gtt @ 5mg/hr for rate control. Added Diltiazem CD 180mg PO today to hopefully get off gtt later today or tomorrow if HR is well controlled. - limited anti-arrhythmic options with her cadiomyopathy and advanced COPD. Could consider tikosyn after amiodarone washout period. - for now, rate control strategy. If rate control proves challenging, consider PPM and AVJ 2. Cardiomyopathy, takotsubo -Ef 35-40%. 3. CHADS2-VASC: </=4 - Continue Eliquis 2.5mg BID (age >80, weight <133lbs). Self pay for medication, so unless she would get accepted into the [employer] patient assistance program this is not a good care home option due to cost. Will need 30 day free supply card and samples prior to DC, and she may need to switch to warfarin in the future. 4. Recent respiratory infections (March 2018) 5. COPD, advanced 6. Hx of lung CA, s/p LLL removal
[2018-05-30] MEDS: Carvedilol 3.125 MG TAB PO SCH ×2 (13:21→17:25)
[2018-05-30] MEDS: Apixaban 2.5 MG TAB PO SCH ×2 (13:23→19:59)
[2018-05-30] MEDS: Losartan 25 MG TAB PO SCH (13:23)
[2018-05-30] MEDS: Furosemide 20 MG TAB PO SCH (13:23)
[2018-05-30] MEDS: Aspirin 81 mg Enteric Coated Tablet PO SCH (13:23)
--- NOTE | 2018-05-30 13:39 | PDOC.PN ---
- Subjective Encounter Start Date: 05/30/18 Encounter Start Time: 09:00 Subjective: no chest pain or sob -: no c/o palpitations - Objective Resuscitation Status - Order Detail: 05/24/18 15:48 Resuscitation Status Routine Resuscitation Status: FULL: Full Resuscitation MAR Reviewed: Yes Vital Signs & Weight: Vital Signs (12 hours) Temp Pulse Resp BP Pulse Ox 05/30/18 11:28 97.3 F L 99 18 140/98 H 96 05/30/18 08:05 95 05/30/18 07:29 97.4 F L 94 18 143/60 H 95 05/30/18 07:23 94 16 05/30/18 07:16 95 05/30/18 07:14 91 16 05/30/18 04:00 97.9 F 93 18 126/66 96 Weight Weight 128 lb 12.8 oz Most Recent Monitor Data Heart Rate from ECG 102 NIBP 135/81 NIBP BP-Mean 99 Respiration from ECG 14 SpO2 98 I&O: 05/29/18 05/30/18 05/31/18 06:59 06:59 06:59 Intake Total 1476 2034 Output Total 500 1930 700 Balance 976 104 -700 Result Diagrams: 05/25/18 06:20 05/30/18 05:31 Phys Exam - Physical Examination HEENT: PERRLA, moist MMs Neck: no JVD, supple Respiratory: no rales, wheezing present Cardiovascular: no significant murmur, irregular Gastrointestinal: soft, non-tender, positive bowel sounds Musculoskeletal: no edema, pulses present Neurological: non-focal, moves all 4 limbs Psychiatric: A&O x 3 Dx/Plan (1) Atrial fibrillation Code(s): I48.91 - UNSPECIFIED ATRIAL FIBRILLATION Status: Acute (2) Systolic CHF Code(s): I50.20 - UNSPECIFIED SYSTOLIC (CONGESTIVE) HEART FAILURE Status: Acute Qualifiers: Heart failure chronicity: acute on chronic Qualified Code(s): I50.23 - Acute on chronic systolic (congestive) heart failure Comment: EF 30-40%, non-ischemic cardiomyopathy, on Lasix (3) Acute respiratory failure with hypoxia Code(s): J96.01 - ACUTE RESPIRATORY FAILURE WITH HYPOXIA Status: Resolved (4) CAD (coronary artery disease) Code(s): I25.10 - ATHSCL HEART DISEASE OF [place] CORONARY ARTERY W/O ANG PCTRS Status: Chronic Qualifiers: Coronary Disease-Associated Artery/Lesion type: [place] artery [place] vs. transplanted heart: [place] heart Associated angina: without angina Qualified Code(s): I25.10 - Atherosclerotic heart disease of [place] coronary artery without angina pectoris (5) COPD exacerbation Code(s): J44.1 - CHRONIC OBSTRUCTIVE PULMONARY DISEASE W (ACUTE) EXACERBATION Status: Acute (6) Cardiomyopathy Code(s): I42.9 - CARDIOMYOPATHY, UNSPECIFIED Status: Chronic Comment: EF 35- 40% (7) Hx of cancer of lung Code(s): Z85.118 - PERSONAL HISTORY OF MALIGNANT NEOPLASM OF BRONCHUS AND LUNG Status: Chronic Comment: No follow up with Onc in five years. Previous lung CA resection (8) Hypertension Code(s): I10 - ESSENTIAL (PRIMARY) HYPERTENSION Status: Chronic Qualifiers: Hypertension type: essential hypertension Qualified Code(s): I10 - Essential (primary) hypertension Comment: karl Honeycutt - Plan is off cardizem drip this am -: continue asp, lipitor, coreg, cozaar, eliquis and lasix -: on nebs, levaquin -: ?pcm per EP advice -: hemostable, to amb in hallway as tolerated * . Review of Systems - Medications/Allergies Allergies/Adverse Reactions: Allergies Allergy/AdvReac Type Severity Reaction Status Date / Time oxycodone HCl Allergy Hives Verified 09/14/12 21:57 [From OxyContin] Penicillins Allergy Rash Verified 09/14/12 21:57 hydrocodone AdvReac Verified 09/14/12 21:55 Medications: Current Medications Acetaminophen (Tylenol) 650 mg PO Q4H PRN PRN Reason: Headache/Fever/Mild Pain (1-3) Albuterol/Ipratropium (Duoneb) 3 ml NEB [id number] [facility] Last Admin: 05/30/18 07:14 Dose: 3 ml Apixaban (Eliquis) 2.5 mg PO BID [facility] Last Admin: 05/30/18 13:23 Dose: 2.5 mg Arformoterol Tartrate (Brovana) 15 mcg NEB BID-RT [facility] Last Admin: 05/30/18 07:23 Dose: 15 mcg Aspirin (Ecotrin) 81 mg PO DAILY [facility] Last Admin: 05/30/18 13:23 Dose: 81 mg Atorvastatin Calcium (Lipitor) 10 mg PO HS [facility] Last Admin: 05/29/18 20:19 Dose: 10 mg Bisacodyl (Dulcolax) 10 mg SC DAILYPRN PRN PRN Reason: Constipation Budesonide (Pulmicort Neb Solution) 0.5 mg INH BID-RT [facility] Last Admin: 05/30/18 07:14 Dose: 0.5 mg Carvedilol (Coreg) 3.125 mg PO BID-WM [facility] Last Admin: 05/30/18 13:21 Dose: 3.125 mg Diltiazem HCl (Cardizem Cd) 180 mg PO DAILY [facility] Diltiazem HCl (Cardizem Cd) 180 mg PO NOW [facility] Stop: 05/30/18 15:15 Furosemide (Lasix) 20 mg PO DAILY [facility] Last Admin: 05/30/18 13:23 Dose: 20 mg Hydroxyzine HCl (Atarax) 25 mg PO Q6H PRN PRN Reason: Itching Last Admin: 05/29/18 20:19 Dose: 25 mg Diltiazem HCl 125 mg/ Sodium (Chloride) 125 mls @ 5 mls/hr IVPB INF [facility] Last Admin: 05/30/18 10:11 Dose: 125 mls Losartan Potassium (Cozaar) 100 mg PO DAILY [facility] Last Admin: 05/30/18 13:23 Dose: 100 mg Potassium Chloride (K-Dur) 40 meq PO 1500 [facility] Last Admin: 05/29/18 14:02 Dose: 40 meq Senna/Docusate Sodium (Senokot S) 2 tab PO BIDPRN PRN PRN Reason: Constipation Sodium Chloride (Flush - Normal Saline) 10 ml IVF Q12HR [facility] Last Admin: 05/30/18 13:23 Dose: 10 ml Sodium Chloride (Flush - Normal Saline) 10 ml IVF PRN PRN PRN Reason: Saline Flush
[2018-05-30] MEDS: Potassium Chloride 20 MEQ TAB PO SCH (16:17)
[2018-05-30] MEDS: Atorvastatin Calcium 10 MG TAB PO SCH (19:59)
[2018-05-31 05:48] LABS: Phosphorus 3.5 mg/dL (2.3-4.7)
[2018-05-31 05:51] LABS: Anion Gap 9 mmol/L (10-20); BUN (Urea Nitrogen) 17 mg/dL (9.8-20.1); Calc. Creatinine Clearance 56 mL/min (70-130); Calcium 9.8 mg/dL (7.8-10.44); Carbon Dioxide 29 mmol/L (23-31); Chloride 99 mmol/L (98-107); Estimated GFR-MDRD 85; Glucose 89 mg/dL (83-110); Magnesium 1.7 mg/dL (1.6-2.6); Potassium 3.6 mmol/L (3.5-5.1); Sodium 133 mmol/L (136-145)
[2018-05-31] MEDS: Budesonide 0.5 MG/2 ML NEB INH SCH ×2 (07:44→19:37)
[2018-05-31] MEDS: Arformoterol 15 MCG/2 ML NEB NEB SCH ×2 (07:44→19:37)
[2018-05-31] MEDS: Aspirin 81 mg Enteric Coated Tablet PO SCH (08:14)
[2018-05-31] MEDS: Carvedilol 3.125 MG TAB PO SCH ×2 (08:14→16:13)
[2018-05-31] MEDS: Apixaban 2.5 MG TAB PO SCH ×2 (08:15→21:03)
[2018-05-31] MEDS: Losartan 25 MG TAB PO SCH (08:15)
[2018-05-31] MEDS: Furosemide 20 MG TAB PO SCH (08:15)
--- NOTE | 2018-05-31 11:32 | PDOC.PN ---
- Subjective Encounter Start Date: 05/31/18 Encounter Start Time: 09:00 Subjective: is sitting on bed and doing crosswords -: no chest pain or palp or sob - Objective Resuscitation Status - Order Detail: 05/24/18 15:48 Resuscitation Status Routine Resuscitation Status: FULL: Full Resuscitation MAR Reviewed: Yes Vital Signs & Weight: Vital Signs (12 hours) Temp Pulse Resp BP Pulse Ox 05/31/18 07:44 68 20 94 L 05/31/18 07:41 68 20 94 L 05/31/18 07:29 97.4 F L 76 16 119/86 94 L 05/31/18 03:44 97.7 F 99 18 122/65 95 05/31/18 00:56 69 14 96 Weight Weight 122 lb 11.2 oz Most Recent Monitor Data Heart Rate from ECG 102 NIBP 135/81 NIBP BP-Mean 99 Respiration from ECG 14 SpO2 98 I&O: 05/30/18 05/31/18 06/01/18 06:59 06:59 07:59 Intake Total 4 877 Output Total 1930 2150 Balance 104 -1273 Result Diagrams: 05/25/18 06:20 05/31/18 04:24 Phys Exam - Physical Examination HEENT: PERRLA, moist MMs Neck: no JVD, supple Respiratory: no wheezing, no rales rhonchi+ Cardiovascular: no significant murmur, irregular Gastrointestinal: soft, non-tender, positive bowel sounds Musculoskeletal: no edema, pulses present Neurological: non-focal, moves all 4 limbs Psychiatric: normal affect, A&O x 3 Dx/Plan (1) Atrial fibrillation Code(s): I48.91 - UNSPECIFIED ATRIAL FIBRILLATION Status: Acute (2) Systolic CHF Code(s): I50.20 - UNSPECIFIED SYSTOLIC (CONGESTIVE) HEART FAILURE Status: Acute Qualifiers: Heart failure chronicity: acute on chronic Qualified Code(s): I50.23 - Acute on chronic systolic (congestive) heart failure Comment: EF 30-40%, non-ischemic cardiomyopathy, on Lasix (3) Acute respiratory failure with hypoxia Code(s): J96.01 - ACUTE RESPIRATORY FAILURE WITH HYPOXIA Status: Resolved (4) CAD (coronary artery disease) Code(s): I25.10 - ATHSCL HEART DISEASE OF [place] CORONARY ARTERY W/O ANG PCTRS Status: Chronic Qualifiers: Coronary Disease-Associated Artery/Lesion type: [place] artery [place] vs. transplanted heart: [place] heart Associated angina: without angina Qualified Code(s): I25.10 - Atherosclerotic heart disease of [place] coronary artery without angina pectoris (5) COPD exacerbation Code(s): J44.1 - CHRONIC OBSTRUCTIVE PULMONARY DISEASE W (ACUTE) EXACERBATION Status: Acute Comment: resolving (6) Cardiomyopathy Code(s): I42.9 - CARDIOMYOPATHY, UNSPECIFIED Status: Chronic Comment: EF 35- 40% (7) Hx of cancer of lung Code(s): Z85.118 - PERSONAL HISTORY OF MALIGNANT NEOPLASM OF [place]CH[place] AND LUNG Status: Chronic Comment: No follow up with Onc in five years. Previous lung CA resection (8) Hypertension Code(s): I10 - ESSENTIAL (PRIMARY) HYPERTENSION Status: Chronic Qualifiers: Hypertension type: essential hypertension Qualified Code(s): I10 - Essential (primary) hypertension Comment: Coza[place]arl - Plan hemostable -: is on coreg, cardizem ACHS, eliquis, asp, lipitor, cozaar and lasix -: nebs prn -: to ambulate as tolerated -: dc plan per cardio/EP advice * . Review of Systems - Medications/Allergies Allergies/Adverse Reactions: Allergies Allergy/AdvReac Type Severity Reaction Status Date / Time oxycodone HCl Allergy Hives Verified 09/14/12 21:57 [From OxyContin] Penicillins Allergy Rash Verified 09/14/12 21:57 hydrocodone AdvReac Verified 09/14/12 21:55 Medications: Current Medications Acetaminophen (Tylenol) 650 mg PO Q4H PRN PRN Reason: Headache/Fever/Mild Pain (1-3) Albuterol/Ipratropium (Duoneb) 3 ml NEB [id number] [facility] Last Admin: 05/31/18 07:41 Dose: 3 ml Apixaban (Eliquis) 2.5 mg PO BID [facility] Last Admin: 05/31/18 08:15 Dose: 2.5 mg Arformoterol Tartrate (Brovana) 15 mcg NEB BID-RT [facility] Last Admin: 05/31/18 07:44 Dose: 15 mcg Aspirin (Ecotrin) 81 mg PO DAILY [facility] Last Admin: 05/31/18 08:14 Dose: 81 mg Atorvastatin Calcium (Lipitor) 10 mg PO HS [facility] Last Admin: 05/30/18 19:59 Dose: 10 mg Bisacodyl (Dulcolax) 10 mg UT DAILYPRN PRN PRN Reason: Constipation Budesonide (Pulmicort Neb Solution) 0.5 mg INH BID-RT [facility] Last Admin: 05/31/18 07:44 Dose: 0.5 mg Carvedilol (Coreg) 3.125 mg PO BID-WM [facility] Last Admin: 05/31/18 08:14 Dose: 3.125 mg Diltiazem HCl (Cardizem) 60 mg PO ACHS [facility] Last Admin: 05/31/18 08:15 Dose: 60 mg Furosemide (Lasix) 20 mg PO DAILY [facility] Last Admin: 05/31/18 08:15 Dose: 20 mg Hydroxyzine HCl (Atarax) 25 mg PO Q6H PRN PRN Reason: Itching Last Admin: 05/29/18 20:19 Dose: 25 mg Losartan Potassium (Cozaar) 100 mg PO DAILY [facility] Last Admin: 05/31/18 08:15 Dose: 100 mg Potassium Chloride (K-Dur) 40 meq PO 1500 [facility] Senna/Docusate Sodium (Senokot S) 2 tab PO BIDPRN PRN PRN Reason: Constipation Sodium Chloride (Flush - Normal Saline) 10 ml IVF Q12HR [facility] Last Admin: 05/31/18 08:15 Dose: 10 ml Sodium Chloride (Flush - Normal Saline) 10 ml IVF PRN PRN PRN Reason: Saline Flush
[2018-05-31] MEDS: Potassium Chloride 20 MEQ TAB PO SCH (16:13)
--- NOTE | 2018-05-31 17:24 | PDOC.CTH ---
Cardiology Progress Note - Subjective No complaints. Feels good overall. Remains in AFlutter that is rate-controlled. off cardizem gtt most of today. - Objective Vital Signs Temp Pulse Pulse Pulse Resp BP BP 05/31/18 15:43 98.3 F 83 16 05/31/18 14:41 71 16 05/31/18 13:13 71 79 112/52 L 122/63 05/31/18 11:59 97.7 F 72 20 05/31/18 07:44 68 20 05/31/18 07:41 68 20 05/31/18 07:29 97.4 F L 76 16 BP Pulse Ox 05/31/18 15:43 106/68 92 L 05/31/18 14:41 93 L 05/31/18 13:13 05/31/18 11:59 110/58 L 96 05/31/18 07:44 94 L 05/31/18 07:41 94 L 05/31/18 07:29 119/86 94 L Weight 122 lb 11.2 oz 05/30/18 05/31/18 06/01/18 06:59 06:59 07:59 Intake Total 2034 877 400 Output Total 1930 2150 700 Balance 104 -1273 -300 - Physical Examination General/Neuro: alert & oriented x3 Neck: no JVD present Lungs: other: (bilateral decreased BS and mild expiratory wheeze) Heart: RRR Abdomen: NT/ND Extremities: other: (no edema) - Telemetry Telemetry Rhythm: AFlutter - Labs Result Diagrams: 05/25/18 06:20 05/31/18 04:24 Troponin/CKMB CK-MB (CK-2) 3.1 ng/mL (0-6.6) 05/24/18 09:22 Troponin I 0.020 ng/mL (< 0.028) 05/25/18 00:31 - Assessment/Plan 1. Paroxysmal AF/AFl 2. Severe COPD 3. HTN 4. HLD Stable. No changes to care at this time. Will continue to observe off cardizem gtt tonight. If RVR reoccurs, then plan for AVJ-RFA and BiV pacer placement. PT seen and examined. No complaints. Rate controlled. Home soon if no changes overnight
[2018-05-31] MEDS: Atorvastatin Calcium 10 MG TAB PO SCH (21:03)
[2018-05-31] MEDS: hydrOXYzine 25 MG TAB PO PRN (21:03)
--- NOTE | 2018-05-31 22:15 | EKG ---
Test Reason : EMERGENCY EXAM Blood Pressure : / mmHG Vent. Rate : 145 BPM Atrial Rate : 388 BPM P-R Int : 000 ms QRS Dur : 068 ms QT Int : 334 ms P-R-T Axes : 000 046 183 degrees QTc Int : 518 ms Atrial flutter with variable A-V block with premature ventricular or aberrantly conducted complexes Low voltage QRS Nonspecific ST and T wave abnormality Abnormal ECG Confirmed by ANDREY BAKER, ARIANA ([id number]), city editor JANETTE PELAYO ([id number]) on 05/31/2018 10:15:06 PM Referred By: Confirmed By:ARIANA BALDERAS MD
[2018-06-01 07:27] LABS: Phosphorus 3.2 mg/dL (2.3-4.7)
[2018-06-01 07:31] LABS: Anion Gap 8 mmol/L (10-20); BUN (Urea Nitrogen) 16 mg/dL (9.8-20.1); Calc. Creatinine Clearance 51 mL/min (70-130); Calcium 9.8 mg/dL (7.8-10.44); Carbon Dioxide 28 mmol/L (23-31); Chloride 101 mmol/L (98-107); Estimated GFR-MDRD 77; Glucose 103 mg/dL (83-110); Magnesium 1.6 mg/dL (1.6-2.6); Sodium 133 mmol/L (136-145)
[2018-06-01] MEDS: Budesonide 0.5 MG/2 ML NEB INH SCH ×2 (07:39→18:29)
[2018-06-01] MEDS: Arformoterol 15 MCG/2 ML NEB NEB SCH ×2 (07:39→18:29)
[2018-06-01] MEDS: Apixaban 2.5 MG TAB PO SCH ×2 (09:05→20:40)
[2018-06-01] MEDS: Furosemide 20 MG TAB PO SCH (09:05)
[2018-06-01] MEDS: Carvedilol 3.125 MG TAB PO SCH ×2 (09:06→17:17)
[2018-06-01] MEDS: Aspirin 81 mg Enteric Coated Tablet PO SCH (09:06)
[2018-06-01] MEDS: Losartan 25 MG TAB PO SCH (09:18)
--- NOTE | 2018-06-01 12:52 | PDOC.CTH ---
Cardiology Progress Note - Subjective No complaints. No overnight events. Rhythm remains AFlutter 3:1 to 5:1 block. - Objective Vital Signs Temp Pulse Resp BP Pulse Ox 06/01/18 12:00 97.5 F L 77 14 105/60 96 06/01/18 08:00 97.5 F L 79 16 138/96 H 94 L 06/01/18 07:39 74 16 96 06/01/18 07:37 74 16 96 06/01/18 04:00 97.7 F 78 16 119/56 L 95 06/01/18 01:20 81 14 97 06/01/18 00:00 97.5 F L 86 16 117/68 96 Weight 121 lb 4.8 oz 05/31/18 06/01/18 06/02/18 05:59 06:59 06:59 Intake Total 113 Output Total Balance 113 - Physical Examination General/Neuro: alert & oriented x3 Neck: no JVD present Lungs: other: (decreased BS and wheeze bilaterally) Heart: RRR - Labs Result Diagrams: 05/25/18 06:20 06/01/18 06:21 Troponin/CKMB CK-MB (CK-2) 3.1 ng/mL (0-6.6) 05/24/18 09:22 Troponin I 0.020 ng/mL (< 0.028) 05/25/18 00:31 - Assessment/Plan 1. Paroxysmal AF/AFl 2. Severe COPD 3. HTN 4. HLD Remains in AFlutter, rate-controlled. No RVR in last 48 hours. On Eliquis. Plan for possible d/c in AM with [facility].
--- NOTE | 2018-06-01 13:41 | PDOC.PN ---
- Subjective Encounter Start Date: 06/01/18 Encounter Start Time: 09:20 Subjective: no chest pain or palp -: is sitting in chair, no sob - Objective Resuscitation Status - Order Detail: 05/24/18 15:48 Resuscitation Status Routine Resuscitation Status: FULL: Full Resuscitation MAR Reviewed: Yes Vital Signs & Weight: Vital Signs (12 hours) Temp Pulse Pulse Pulse Resp BP BP 06/01/18 12:54 87 66 107/67 104/58 L 06/01/18 12:00 97.5 F L 77 14 06/01/18 08:00 97.5 F L 79 16 06/01/18 07:39 74 16 06/01/18 07:37 74 16 06/01/18 04:00 97.7 F 78 16 06/01/18 01:20 81 14 BP Pulse Ox 06/01/18 12:54 06/01/18 12:00 105/60 96 06/01/18 08:00 138/96 H 94 L 06/01/18 07:39 96 06/01/18 07:37 96 06/01/18 04:00 119/56 L 95 06/01/18 01:20 97 Weight Weight 121 lb 4.8 oz Most Recent Monitor Data Heart Rate from ECG 102 NIBP 135/81 NIBP BP-Mean 99 Respiration from ECG 14 SpO2 98 I&O: 05/31/18 06/01/18 06/02/18 05:59 06:59 06:59 Intake Total 113 Output Total Balance 113 Result Diagrams: 05/25/18 06:20 06/01/18 06:21 Phys Exam - Physical Examination HEENT: PERRLA, moist MMs Neck: no JVD, supple Respiratory: no wheezing, no rales rhonchi+ Cardiovascular: no significant murmur, irregular Gastrointestinal: soft, positive bowel sounds Musculoskeletal: no edema, pulses present Neurological: non-focal, moves all 4 limbs Psychiatric: normal affect, A&O x 3 Dx/Plan (1) Atrial flutter Code(s): I48.92 - UNSPECIFIED ATRIAL FLUTTER Status: Acute (2) Atrial fibrillation Code(s): I48.91 - UNSPECIFIED ATRIAL FIBRILLATION Status: Chronic (3) Systolic CHF Code(s): I50.20 - UNSPECIFIED SYSTOLIC (CONGESTIVE) HEART FAILURE Status: Acute Qualifiers: Heart failure chronicity: acute on chronic Qualified Code(s): I50.23 - Acute on chronic systolic (congestive) heart failure Comment: EF 30-40%, non-ischemic cardiomyopathy, on Lasix (4) Acute respiratory failure with hypoxia Code(s): J96.01 - ACUTE RESPIRATORY FAILURE WITH HYPOXIA Status: Resolved (5) CAD (coronary artery disease) Code(s): I25.10 - ATHSCL HEART DISEASE OF [place] CORONARY ARTERY W/O ANG PCTRS Status: Chronic Qualifiers: Coronary Disease-Associated Artery/Lesion type: [place] artery [place] vs. transplanted heart: [place] heart Associated angina: without angina Qualified Code(s): I25.10 - Atherosclerotic heart disease of [place] coronary artery without angina pectoris (6) COPD exacerbation Code(s): J44.1 - CHRONIC OBSTRUCTIVE PULMONARY DISEASE W (ACUTE) EXACERBATION Status: Resolved Comment: resolving (7) Cardiomyopathy Code(s): I42.9 - CARDIOMYOPATHY, UNSPECIFIED Status: Chronic Comment: EF 35- 40% (8) Hx of cancer of lung Code(s): Z85.118 - PERSONAL HISTORY OF MALIGNANT NEOPLASM OF [place] AND LUNG Status: Chronic Comment: No follow up with Onc in five years. Previous lung CA resection (9) Hypertension Code(s): I10 - ESSENTIAL (PRIMARY) HYPERTENSION Status: Chronic Qualifiers: Hypertension type: essential hypertension Qualified Code(s): I10 - Essential (primary) hypertension Comment: karl Honeycutt - Plan has 3:1 atrial flutter, rate controlled -: await EP opinion in am prior to discharge -: is on coreg, cardizem achs, cozaar, asp, eliquis, lipitor -: pulmicort, brovana and duonebs -: hemostable * . Review of Systems - Medications/Allergies Allergies/Adverse Reactions: Allergies Allergy/AdvReac Type Severity Reaction Status Date / Time oxycodone HCl Allergy Hives Verified 09/14/12 21:57 [From OxyContin] Penicillins Allergy Rash Verified 09/14/12 21:57 hydrocodone AdvReac Verified 09/14/12 21:55 Medications: Current Medications Acetaminophen (Tylenol) 650 mg PO Q4H PRN PRN Reason: Headache/Fever/Mild Pain (1-3) Albuterol/Ipratropium (Duoneb) 3 ml NEB [id number] DESIREE Last Admin: 06/01/18 07:37 Dose: 3 ml Apixaban (Eliquis) 2.5 mg PO BID [facility] Last Admin: 06/01/18 09:05 Dose: 2.5 mg Arformoterol Tartrate (Brovana) 15 mcg NEB BID-RT [facility] Last Admin: 06/01/18 07:39 Dose: 15 mcg Aspirin (Ecotrin) 81 mg PO DAILY [facility] Last Admin: 06/01/18 09:06 Dose: 81 mg Atorvastatin Calcium (Lipitor) 10 mg PO HS [facility] Last Admin: 05/31/18 21:03 Dose: 10 mg Bisacodyl (Dulcolax) 10 mg GA DAILYPRN PRN PRN Reason: Constipation Budesonide (Pulmicort Neb Solution) 0.5 mg INH BID-RT [facility] Last Admin: 06/01/18 07:39 Dose: 0.5 mg Carvedilol (Coreg) 3.125 mg PO BID-WM [facility] Last Admin: 06/01/18 09:06 Dose: 3.125 mg Diltiazem HCl (Cardizem) 60 mg PO ACHS [facility] Last Admin: 06/01/18 12:54 Dose: 60 mg Furosemide (Lasix) 20 mg PO DAILY [facility] Last Admin: 06/01/18 09:05 Dose: 20 mg Hydroxyzine HCl (Atarax) 25 mg PO Q6H PRN PRN Reason: Itching Last Admin: 05/31/18 21:03 Dose: 25 mg Losartan Potassium (Cozaar) 100 mg PO DAILY [facility] Last Admin: 06/01/18 09:18 Dose: 100 mg Potassium Chloride (K-Dur) 40 meq PO 1500 [facility] Last Admin: 05/31/18 16:13 Dose: 40 meq Senna/Docusate Sodium (Senokot S) 2 tab PO BIDPRN PRN PRN Reason: Constipation Last Admin: 05/31/18 12:45 Dose: 2 tab Sodium Chloride (Flush - Normal Saline) 10 ml IVF Q12HR [facility] Last Admin: 06/01/18 09:06 Dose: 10 ml Sodium Chloride (Flush - Normal Saline) 10 ml IVF PRN PRN PRN Reason: Saline Flush
[2018-06-01] MEDS: Potassium Chloride 20 MEQ TAB PO SCH (14:52)
[2018-06-01] MEDS: hydrOXYzine 25 MG TAB PO PRN (20:40)
[2018-06-01] MEDS: Atorvastatin Calcium 10 MG TAB PO SCH (20:40)
[2018-06-02 06:27] LABS: Anion Gap 10 mmol/L (10-20); BUN (Urea Nitrogen) 15 mg/dL (9.8-20.1); Calc. Creatinine Clearance 49 mL/min (70-130); Calcium 9.7 mg/dL (7.8-10.44); Carbon Dioxide 24 mmol/L (23-31); Chloride 104 mmol/L (98-107); Estimated GFR-MDRD 75; Glucose 85 mg/dL (83-110); Magnesium 1.6 mg/dL (1.6-2.6); Sodium 134 mmol/L (136-145)
[2018-06-02] MEDS: Arformoterol 15 MCG/2 ML NEB NEB SCH (07:46)
[2018-06-02] MEDS: Budesonide 0.5 MG/2 ML NEB INH SCH (07:46)
[2018-06-02] MEDS: Apixaban 2.5 MG TAB PO SCH (08:14)
[2018-06-02] MEDS: Furosemide 20 MG TAB PO SCH (08:15)
[2018-06-02] MEDS: Aspirin 81 mg Enteric Coated Tablet PO SCH (08:15)
[2018-06-02] MEDS: Carvedilol 3.125 MG TAB PO SCH (08:15)
[2018-06-02] MEDS: Losartan 25 MG TAB PO SCH (08:15)
--- NOTE | 2018-06-02 08:40 | PDOC.CTH ---
Cardiology Progress Note - Subjective No overnight events. Remains rate-controlled AFlutter. 70s-80s with variable block. - Objective Vital Signs Temp Pulse Resp BP Pulse Ox 06/02/18 07:45 112 H 20 92 L 06/02/18 07:38 98.0 F 97 18 146/70 H 95 06/02/18 04:00 97.8 F 87 16 124/70 95 06/02/18 00:18 71 14 96 06/02/18 00:00 98 F 80 16 113/57 L 95 06/01/18 20:40 96 Weight 121 lb 4.8 oz 06/01/18 06/02/18 06/03/18 06:59 06:59 06:59 Intake Total 1693 Output Total 1150 Balance 543 - Physical Examination General/Neuro: alert & oriented x3 - Telemetry Telemetry Rhythm: AFl - Labs Result Diagrams: 05/25/18 06:20 06/02/18 05:57 Troponin/CKMB CK-MB (CK-2) 3.1 ng/mL (0-6.6) 05/24/18 09:22 Troponin I 0.020 ng/mL (< 0.028) 05/25/18 00:31 - Assessment/Plan 1. Paroxysmal AF/AFl 2. Severe COPD 3. HTN 4. HLD Remains rate-controlled on current meds. No RVR or plan for AVJ-RFA/BiV pacer at this time. Will discharge today with 30 day EVR. Needs f/u with EP as instructed and f/u with [facility] in 2-3 weeks.
[2018-06-02 10:39] LABS: Phosphorus 3.2 mg/dL (2.3-4.7)
[2018-06-02 11:36] VITALS: TEMP 98.3
[2018-06-02 15:08] VITALS: BP 111/53
--- NOTE | 2018-06-02 16:26 | PDOC.CTH ---
Cardiology Progress Note - Subjective EP PROGRESS NOTE: 06/02/18 Seen as follow up for atrial fibrillation and flutter with RVR. She remained stable ove the weekend with improving rate control. No further palpitations or sensation of heart racing. No cardiac concerns or complaints today. - Objective Vital Signs Temp Pulse Pulse Pulse Resp BP BP 06/02/18 11:36 98.3 F 76 16 06/02/18 10:40 72 77 111/53 L 82/55 L 06/02/18 08:00 06/02/18 07:45 112 H 20 06/02/18 07:38 98.0 F 97 18 BP Pulse Ox 06/02/18 11:36 110/53 L 96 06/02/18 10:40 06/02/18 08:00 95 06/02/18 07:45 92 L 06/02/18 07:38 146/70 H 95 Weight 121 lb 4.8 oz 06/01/18 06/02/18 06/03/18 06:59 06:59 06:59 Intake Total 1933 240 Output Total 1150 Balance 783 240 - Physical Examination General/Neuro: alert & oriented x3, NAD Lungs: CTA Heart: RRR Abdomen: no HSM Extremities: + edema B (0) - Telemetry Telemetry Rhythm: Afib/atyp afl with controlled VR. - Labs Result Diagrams: 05/25/18 06:20 06/02/18 05:57 Troponin/CKMB CK-MB (CK-2) 3.1 ng/mL (0-6.6) 05/24/18 09:22 Troponin I 0.020 ng/mL (< 0.028) 05/25/18 00:31 - Assessment/Plan 1. Atrial arrhythmias, newly diagnosed - atrial flutter --> atrial fibrillation - on diltiazem gtt @ 5mg/hr for rate control.On Diltiazem CD 180mg PO today. Off dilt gtt since weekend hence HR is well controlled. - limited anti-arrhythmic options with her cadiomyopathy and advanced COPD. ( Could consider tikosyn after amiodarone washout period.) - for now, rate control strategy. If rate control proves challenging, consider PPM and AVJ 2. Cardiomyopathy, takotsubo -Ef 35-40%. 3. CHADS2-VASC: </=4 - Continue Eliquis 2.5mg BID (age >80, weight <133lbs). Self pay for medication, so unless she would get accepted into the Eliquis patient assistance program this is not a good long-term option due to cost. Will need 30 day free supply card and samples prior to DC, and she may need to switch to warfarin in the future. 4. Recent respiratory infections (March 2018) 5. COPD, advanced 6. Hx of lung CA, s/p LLL removal Plan outpt follow up
== END 2018-06-02 13:50 | disposition home health service (06) | DRG 291 ==
LOC: ERS 09:05 → IMCU/EMU 10:42 → 2SE 05-28 10:14
PROVIDERS: ADMIT Internal Medicine Nephrology; ATTEND Internal Medicine Nephrology
DX: I11.0 Hypertensive heart disease with heart failure (principal); J96.21 Acute and chronic respiratory failure with hypoxia; J44.1 Chronic obstructive pulmonary disease with (acute) exacerbation; I48.1 Persistent atrial fibrillation; I48.92 Unspecified atrial flutter; E87.6 Hypokalemia; I50.43 Acute on chronic combined systolic (congestive) and diastolic (congestive) heart failure; I42.9 Cardiomyopathy, unspecified; E78.00 Pure hypercholesterolemia, unspecified; I07.1 Rheumatic tricuspid insufficiency; E78.5 Hyperlipidemia, unspecified; Z85.118 Personal history of other malignant neoplasm of bronchus and lung; Z87.891 Personal history of nicotine dependence; Z88.0 Allergy status to penicillin; Z88.8 Allergy status to other drugs, medicaments and biological substances; Z82.49 Family history of ischemic heart disease and other diseases of the circulatory system
CPT/HCPCS: 36415; 71045; 80048; 80053; 82550; 82553; 82805; 83605; 83690; 83735; 83880; 84100; 84145; 84443; 84484; 85025; 85610; 85730; 87040; 93005; 93010; 93798; 94640; 94644; 94660; 96365; 96366; 96372; J1650; J1940; J3370; J3475; J7050; J7070; J7611; J7620; J7626

== ENCOUNTER 2018-07-21 07:24 | Inpatient (IN) | payer MEDICARE, BC ==
[2018-07-21] MEDS ORDERED: Propofol 500 MG/50 ML VIAL ONE (11:08)
[2018-07-21] MEDS ORDERED: Heparin 10,000 UNITS/1 ML VIAL ONE (11:10)
[2018-07-21] MEDS ORDERED: Fentanyl 100 MCG/2 ML VIAL ONE ×2 (11:11→14:05)
[2018-07-21] MEDS ORDERED: Isoproterenol 0.2 MG/1 ML AMP ONE ×2 (11:53)
[2018-07-21] MEDS ORDERED: DOPamine 400 MG/D5W 250 ML 250 ML ONE (11:53)
[2018-07-21] MEDS ORDERED: PHENYLEPHRINE-NS 100 MCG/ML 10 ML SYRINGE ONE ×2 (12:46→16:40)
[2018-07-21] MEDS ORDERED: Acetaminophen/Codeine 30-300mg Tablet PO PRN ×2 (14:00)
--- NOTE | 2018-07-21 14:24 | OP ---
DATE OF PROCEDURE: 07/21/2018 PROCEDURES PERFORMED: Electrophysiology study and radiofrequency ablation. REASON FOR PROCEDURE: Ms. Fenton is an 82-year-old woman with prior history of advanced COPD, history of lung cancer and lobe resection, who had been found to be in atrial flutter with rapid ventricular rate, but also developed atrial fibrillation subsequently. She had frequent recurrences with poor ventricular rate control. Decision was made to proceed with an atrial flutter ablation. I would also consider antiarrythmic loading to suppress the atrial fibrillation eventually. The patient has been well anticoagulated with Eliquis up until the day of procedure. DESCRIPTION OF PROCEDURE: The patient received propofol by Anesthesia specialist. Right femoral venous area was prepped, draped, and anesthetized using subcutaneous lidocaine and under ultrasound guidance, the right femoral vein was accessed x2 and two 8-Latvian short sheath was introduced. Through this, a ThermoCool SFST ablation catheter was advanced to the right atrium, His bundle, CS, and right ventricle locations. 3D map of the right atrium was obtained. Also a decapolar catheter was advanced to the right atrium, right ventricle, CS, and His positions. Pacing, mapping, and recording were obtained in each location. The baseline rhythm was atypical atrial flutter. Decision was made hence the history of typical atrial flutter to proceed with the cavotricuspid isthmus ablation, which was performed. After that, a cardioversion was used to restore sinus rhythm. Proximal CS pacing proved a cavotricuspid isthmus block with unilateral block demonstrated by longest transisthmus time adjacent to the ablation line. We were able to increased the transisthmus time from baseline 40 milliseconds to 170 milliseconds. Following that, dopamine was administered and the line patency was rechecked. Baseline numbers; baseline cycle length of 481 milliseconds, QRS 50 milliseconds, QT 360 milliseconds, AH 206 milliseconds, and HV 58 milliseconds. Sinus node recovery time post cardioversion was 1329, correctly 659. The Wenckebach cycle was 360 milliseconds post ablation. The total ablation delivered was 9 lesion at 6 minutes and 49 seconds at 40 sanchez energy. The cardiac silhouette did not significantly changed with the procedure. The patient tolerated the procedure well. No complications noted. PLAN: Continue apixaban and admitted for Tikosyn loading. Job ID: [id number]
[2018-07-21] MEDS ORDERED: hydrALAZINE 20 MG/ML VIAL ONE (14:32)
[2018-07-21] MEDS ORDERED: hydrALAZINE 20 MG/ML VIAL SLOW IVP PRN (14:41)
[2018-07-21] MEDS ORDERED: Losartan 25 MG TAB PO SCH (14:45)
[2018-07-21] MEDS ORDERED: PROPOFOL 200 MG/20 ML VIAL ONE (16:40)
[2018-07-21] MEDS ORDERED: traMADol HCl 50 MG TAB ONE (17:14)
[2018-07-21] MEDS ORDERED: traMADol HCl 50 MG TAB PO PRN (18:13)
[2018-07-21] MEDS: Carvedilol 3.125 MG TAB PO SCH (18:17)
[2018-07-21] MEDS: Dofetilide 0.25 MG CAP PO SCH ×2 (18:17→18:19)
[2018-07-21] MEDS: Dofetilide 0.125 MG CAP PO SCH (18:17)
[2018-07-21] MEDS ORDERED: Mometasone/Formoterol 120 PUFF INHALER INH SCH (18:30)
[2018-07-21] MEDS ORDERED: diphenhydrAMINE 25 MG CAP PO PRN (18:45)
[2018-07-21] MEDS ORDERED: Dofetilide 0.25 MG CAP PO SCH ×2 (21:00)
[2018-07-21] MEDS: Atorvastatin Calcium 10 MG TAB PO SCH (21:39)
[2018-07-21] MEDS: Apixaban 2.5 MG TAB PO SCH (21:39)
[2018-07-21 22:38] VITALS: BMI 23.5
[2018-07-22] MEDS: Dofetilide 0.125 MG CAP PO SCH ×2 (06:10→17:50)
[2018-07-22] MEDS ORDERED: Losartan 25 MG TAB PO SCH (09:00)
[2018-07-22] MEDS: Carvedilol 3.125 MG TAB PO SCH ×2 (09:57→17:50)
[2018-07-22] MEDS: Apixaban 2.5 MG TAB PO SCH ×2 (09:57→20:51)
[2018-07-22] MEDS: Losartan 25 MG TAB PO SCH (09:57)
[2018-07-22] MEDS: Aspirin Chewable 81 MG TAB PO SCH (09:58)
[2018-07-22] MEDS: Furosemide 20 MG TAB PO SCH (09:59)
[2018-07-22] MEDS: Potassium Chloride 20 MEQ TAB PO SCH (09:59)
--- NOTE | 2018-07-22 15:09 | PDOC.CTH ---
Cardiology Progress Note - Subjective EP PROGRESS NOTE: 07/22/18 Seen as follow up for atrial arrhythmias and medication management. She is feeling well after her ablation on 07/10. Denies heart racing, palpitations, chest pain/pressure, dizziness or passing out. + SOB that resolved after taking symbicort INH this AM. Groin site not tender, no bleeding. - Objective Vital Signs Temp Pulse Resp BP BP Pulse Ox 07/22/18 12:18 98.1 F 97 135/61 97 07/22/18 09:57 96 07/22/18 07:31 98.0 F 85 19 174/82 H 96 07/22/18 04:00 97.6 F 90 16 170/92 H 96 Weight 120 lb 9 oz - Physical Examination General/Neuro: alert & oriented x3, NAD Neck: carotid US brisk, no JVD present Lungs: CTA, unlabored respirations Heart: PMI normal, RRR Abdomen: NT/ND, soft Other PE findings: R groin stie stable, No hematoma - Telemetry Telemetry Rhythm: SR - Assessment/Plan 1. Atrial flutter -s/p CTI RA flutter ablation on 07/10 2. Atrial fibrillation -s/p CV at end of EPS/RFA on 07/10 - Tikosyn loading ongoing. Started PM on 07/10. QTc 425msec after 1st dose. Continue with 12 lead EKG after every dose of tikosyn 3. COPD - resume home INH - added PRN combivent neb 4. Chronic OAC with eliquis Continue monitoring on tele during tikosyn loading. QTc stable thus far. Continue OAC
[2018-07-22] MEDS: Atorvastatin Calcium 10 MG TAB PO SCH (20:51)
[2018-07-23] MEDS: Dofetilide 0.125 MG CAP PO SCH ×2 (06:26→17:31)
[2018-07-23] MEDS: Carvedilol 3.125 MG TAB PO SCH ×2 (09:35→17:32)
[2018-07-23] MEDS: Furosemide 20 MG TAB PO SCH (09:35)
[2018-07-23] MEDS: Apixaban 2.5 MG TAB PO SCH ×2 (09:35→20:20)
[2018-07-23] MEDS: Aspirin Chewable 81 MG TAB PO SCH (09:35)
[2018-07-23] MEDS: Potassium Chloride 20 MEQ TAB PO SCH (09:35)
[2018-07-23] MEDS: Losartan 25 MG TAB PO SCH (09:36)
--- NOTE | 2018-07-23 12:33 | PDOC.CTH ---
Cardiology Progress Note - Subjective EP PROGRESS NOTE: 07/23/18 Seen as follow up for atrial arrhythmias and medication management. She is feeling well after her ablation on 07/10. Denies heart racing, palpitations, chest pain/pressure, dizziness or passing out. SOB improved from yesterday AM - Objective Vital Signs Temp Pulse Resp BP BP Pulse Ox 07/23/18 11:11 97.4 F L 108 H 17 101/70 95 07/23/18 11:08 113 H 07/23/18 07:17 97.5 F L 113 H 20 135/87 98 07/23/18 03:58 97.4 F L 119 H 20 120/88 98 Weight 120 lb 9 oz 07/22/18 07/23/18 07/24/18 06:59 06:59 06:59 Intake Total 1330 Balance 1330 - Physical Examination General/Neuro: alert & oriented x3, NAD Neck: carotid US brisk, no JVD present Lungs: CTA, unlabored respirations Heart: PMI normal, other: (irreg irreg) Abdomen: NT/ND, soft - Telemetry Telemetry Rhythm: atrial fibrillation - Assessment/Plan 1. Atrial flutter -s/p CTI RA flutter ablation on 07/10 2. Atrial fibrillation -s/p CV at end of EPS/RFA on 07/10 -Tikosyn 250mcg BID loading ongoing. Started PM on 07/10. QTc 425msec after 1st dose. -Continue with 12 lead EKG after every dose of tikosyn 3. COPD - resume home INH - added PRN combivent neb 4. Chronic OAC with eliquis Continue monitoring on tele during tikosyn loading. QTc stable thus far. Continue OAC Converted to atypical atrial flutter yesterday PM. Plan for CV tomorrow AM and likely DC tomorrow after Tikosyn dose.
[2018-07-23] MEDS: Atorvastatin Calcium 10 MG TAB PO SCH (20:21)
[2018-07-24 05:47] LABS: #Basophils 0.1 thou/uL (0.0-0.2); #Eosinphils 0.5 thou/uL (0.0-0.7); #Lymphocytes 2.1 thou/uL (1.20-3.40); #Monocytes 0.8 thou/uL (0.11-0.59); #Neutrophils 4.1 thou/uL (1.40-6.50); %Eosinophils 6.1 % (0.0-10.0); %Lymphocytes 27.8 % (21.0-51.0); %Neutrophils 54.1 % (42.0-75.0); Hemoglobin 12.9 g/dL (12.0-16.0); Mean Corpuscular HGB CONC 31.3 g/dL (32.0-36.0); Mean Corpuscular Hemoglobin 25.5 pg (27.0-31.0); Mean Corpuscular Volume 81.7 fL (78.0-98.0); Mean Platelet Volume 6.8 fL (7.4-10.4); Platelet Count 511 thou/uL (130-400); RBC Distribution Width 16.4 % (11.5-14.5); Red Blood Cell (RBC) Count 5.04 mill/uL (4.20-5.40); White Blood Cell (WBC) Count 7.5 thou/uL (4.8-10.8)
[2018-07-24] MEDS: Dofetilide 0.125 MG CAP PO SCH (05:50)
[2018-07-24 06:09] LABS: Anion Gap 10 mmol/L (10-20); BUN (Urea Nitrogen) 16 mg/dL (9.8-20.1); Calc. Creatinine Clearance 56 mL/min (70-130); Carbon Dioxide 26 mmol/L (23-31); Chloride 99 mmol/L (98-107); Estimated GFR-MDRD 87; Glucose 95 mg/dL (83-110); Potassium 4.1 mmol/L (3.5-5.1); Sodium 131 mmol/L (136-145)
[2018-07-24 09:33] VITALS: BP 150/82; TEMP 97.7
[2018-07-24] MEDS: Losartan 25 MG TAB PO SCH (09:35)
[2018-07-24] MEDS: Apixaban 2.5 MG TAB PO SCH (09:35)
[2018-07-24] MEDS: Carvedilol 3.125 MG TAB PO SCH (09:36)
[2018-07-24] MEDS: Potassium Chloride 20 MEQ TAB PO SCH (09:36)
[2018-07-24] MEDS: Furosemide 20 MG TAB PO SCH (09:36)
[2018-07-24] MEDS: Aspirin Chewable 81 MG TAB PO SCH (09:38)
--- NOTE | 2018-07-24 11:51 | OP ---
DATE OF PROCEDURE: 07/24/2018 PROCEDURE PERFORMED: Cardioversion. REASON FOR PROCEDURE: Ms. Fenton is an 82-year-old woman with history of recurrent atrial arrhythmias and severe COPD, who underwent cavotricuspid isthmus ablation and due to residual atrial fibrillation, Tikosyn loading was performed in the hospital. She has intermittent atrial fibrillation this morning and persisted in the last 2 days. Cardioversion was performed after sufficient Tikosyn loading. DESCRIPTION OF PROCEDURE: The patient received propofol by Anesthesia specialist. After adequate level of sedation achieved, a 70-joule shock converted the patient back to sinus rhythm for only couple of beats. A subsequent 100j DC CABRERA converted the patient back to sinus rhythm. The patient remained in sinus rhythm. After that, all shocks were synchronized. CONCLUSION: Successful cardioversion. PLAN: Continue Tikosyn at 250 mcg daily. EKG post procedure was checked that measured to be less than 460. No significant jump of baseline of 425 QTc. Addendum: Early recurrence of atypical flutter seen after 5 minutes of moitoring. Will stop tikosyn, comtinue diltiazem for rate control. Will consider Left atrial ablation vs Biv pacer implant and AV JUAN ABLATION as outpt. Job ID: [id number] [facility]
--- NOTE | 2018-07-24 18:19 | DIS ---
DATE OF ADMISSION: 07/21/2018 DATE OF DISCHARGE: 07/24/2018 DIAGNOSES: Atrial fibrillation, atrial flutter. HISTORY OF PRESENT ILLNESS: Ms. Fenton is a pleasant 82-year-old woman, recently diagnosed with atrial fibrillation. She has a history of advanced COPD and prior lung cancer with left lower lobe resection. She was admitted to [facility] on 07/21 for an elective CTI flutter ablation and Tikosyn loading to suppress her atrial arrhythmias. Her CTI flutter was performed on 07/21 without complications that she has had an uneventful recovery. She was then admitted for Tikosyn loading to suppress her atrial fibrillation. She did undergo cardioversion at the end of her ablation, which maintained sinus rhythm for approximately 24 hours before she converted to atrial fibrillation despite Tikosyn. Her QTc had remained stable, and she finished her loading, and repeat cardioversion was attempted this morning, which was unsuccessful. Her Tikosyn was then discontinued, and she was largely asymptomatic in her atrial arrhythmias, so rate control strategy is pursed with continued anticoagulation. SUBJECTIVE: The patient denies heart racing, palpitations, chest pain, pressure, syncope, near syncope, stroke, or stroke-like symptoms. She does not have any discomfort or problems at the groin site. OBJECTIVE: VITAL SIGNS: Temperature 97.7, pulse 84, blood pressure 134/80, respirations 18, and oxygen is 95% on room air. GENERAL: The patient is alert and oriented, speech is clear, affect is appropriate. She is in no apparent distress. NEUROLOGIC: Grossly intact and nonfocal. HEART: Rate is irregularly irregular. LUNGS: Clear to auscultation. Respirations even and unlabored. ABDOMEN: Soft and nontender without palpable masses. EXTREMITIES: Warm and dry to touch without clubbing, cyanosis, or edema. Gait is stable. DATABASE: Hematology this morning is stable. Chemistry unremarkable. Creatinine 0.65, potassium 4.1. DISCHARGE INSTRUCTIONS AND RECOMMENDATIONS: Unfortunately, Ms. Fenton did not respond to Tikosyn and attempted cardioversion this morning, thus Tikosyn was discontinued and I will be discharging her on Cartia 100 mg for rate control. I have her continue on reduced dose of Eliquis for late and advanced age. She will contact [facility] with any postablation concerns or questions and follow up in 6 weeks or sooner if symptoms dictate. No lifting more than 7 pounds or soaking bats for 1 week. DISCHARGE MEDICATIONS: Resuming home medications of, 1. Tramadol 50 mg as needed. 2. Symbicort b.i.d. 3. Potassium 40 mEq daily. 4. Losartan 100 mg daily. 5. DuoNeb q.i.d. p.r.n. 6. Atarax p.r.n. 7. Lasix 20 mg daily. 8. Coreg 3.125 mg p.o. b.i.d. 9. Lipitor 10 mg daily. 10. Aspirin 81 mg daily. 11. Eliquis 2.5 mg p.o. daily. New prescription was submitted for diltiazem extended release 180 mg p.o. daily to replace her rapid acting q.i.d. dosing that she was previously on. CONDITION AT DISCHARGE: Stable. Job ID: [id number]
== END 2018-07-24 12:34 | disposition home or self-care (01) | DRG 274 ==
LOC: CCL 07:24 → 2NO 20:00
PROVIDERS: ADMIT Internal Medicine Cardiovascular Disease; ATTEND Internal Medicine Cardiovascular Disease
PROC: 02583ZZ Destruction of Conduction Mechanism, Percutaneous Approach (ICD-10-PCS; principal; 2018-07-21)
PROC: 02K83ZZ Map Conduction Mechanism, Percutaneous Approach (ICD-10-PCS; 2018-07-21)
PROC: 5A2204Z Restoration of Cardiac Rhythm, Single (ICD-10-PCS; 2018-07-21)
PROC: 4A023FZ Measurement of Cardiac Rhythm, Percutaneous Approach (ICD-10-PCS; 2018-07-21)
PROC: 4A0234Z Measurement of Cardiac Electrical Activity, Percutaneous Approach (ICD-10-PCS; 2018-07-21)
PROC: 5A2204Z Restoration of Cardiac Rhythm, Single (ICD-10-PCS; 2018-07-24)
DX: I48.4 Atypical atrial flutter (principal); I48.91 Unspecified atrial fibrillation; J44.9 Chronic obstructive pulmonary disease, unspecified; Z85.118 Personal history of other malignant neoplasm of bronchus and lung; Z79.01 Long term (current) use of anticoagulants; Z88.0 Allergy status to penicillin; Z88.5 Allergy status to narcotic agent; Z90.710 Acquired absence of both cervix and uterus; Z90.2 Acquired absence of lung [part of]
CPT/HCPCS: 36415; 76942; 80048; 85025; 92960; 93005; 93010; 93613; 93623; 93653; C1732; C1769; J0360; J1265; J1644; J2704; J3010; J8499; Q0163

== ENCOUNTER 2019-01-16 11:08 | Outpatient (CLI) | payer MEDICARE, BC ==
[2019-01-16 12:33] LABS: Hemoglobin 15.5 g/dL (12.0-16.0); Mean Corpuscular HGB CONC 32.3 g/dL (32.0-36.0); Mean Corpuscular Hemoglobin 28.3 pg (27.0-31.0); Mean Corpuscular Volume 87.5 fL (78.0-98.0); Mean Platelet Volume 6.3 fL (7.4-10.4); Platelet Count 581 thou/uL (130-400); RBC Distribution Width 15.9 % (11.5-14.5); Red Blood Cell (RBC) Count 5.48 mill/uL (4.20-5.40); White Blood Cell (WBC) Count 8.2 thou/uL (4.8-10.8)
[2019-01-16 12:39] LABS: INR-International Normal Ratio 1.1; Prothrombin Time 13.9 SEC (12.0-14.7)
[2019-01-16 13:05] LABS: Anion Gap 12 mmol/L (10-20); BUN (Urea Nitrogen) 15 mg/dL (9.8-20.1); Calc. Creatinine Clearance 0 mL/min (70-130); Calcium 10.8 mg/dL (7.8-10.44); Carbon Dioxide 27 mmol/L (23-31); Chloride 95 mmol/L (98-107); Estimated GFR-MDRD 64; Glucose 78 mg/dL (83-110); Potassium 4.6 mmol/L (3.5-5.1); Sodium 129 mmol/L (136-145)
== END 2019-01-16 11:09 | disposition home or self-care (01) ==
LOC: LABBT 11:08
PROVIDERS: ATTEND Orthopaedic Surgery
DX: Z01.812 Encounter for preprocedural laboratory examination (principal); M16.12 Unilateral primary osteoarthritis, left hip
CPT/HCPCS: 80048; 85027; 85610; 87081

== ENCOUNTER 2019-01-16 11:15 | Inpatient (IN) | payer MEDICARE, BC ==
[2019-01-20] MEDS ORDERED: Zolpidem Tartrate 5 MG TAB PO PRN ×2 (09:30→10:58)
[2019-01-20] MEDS ORDERED: Naloxone HCl 0.4 mg/ml Vial IV PRN (09:30)
[2019-01-20] MEDS ORDERED: Promethazine HCl 25 MG/ML VIAL IM PRN ×3 (09:30→12:08)
[2019-01-20] MEDS ORDERED: Bupivacaine 0.25% 10 ML VIAL EPIDURAL PRN (09:30)
[2019-01-20] MEDS ORDERED: Ondansetron PF 4 MG/2 ML Vial IVP PRN ×2 (09:30→10:58)
[2019-01-20] MEDS ORDERED: Hydrocerin (Eucerin) Cream 120 gm Jar TOP PRN (09:30)
[2019-01-20] MEDS ORDERED: diphenhydrAMINE 50 MG/ML VIAL IM PRN (09:30)
[2019-01-20] MEDS ORDERED: Promethazine HCl 25 MG SUPP PR PRN (09:30)
[2019-01-20] MEDS ORDERED: traMADol HCl 50 MG TAB PO PRN ×3 (09:30→10:55)
[2019-01-20] MEDS ORDERED: diphenhydrAMINE 50 MG/ML VIAL IVP PRN (09:30)
[2019-01-20] MEDS ORDERED: Fentanyl 5 mcg/Bup 0.075% Cadd 100 ML EPIDURAL SCH (09:30)
[2019-01-20] MEDS ORDERED: Naloxone HCl 0.4 mg/ml Vial IVP PRN (09:30)
[2019-01-20] MEDS ORDERED: Clindamycin/D5W 900 mg/50 ml Premix Bag ONE (10:10)
[2019-01-20] MEDS ORDERED: Fentanyl 100 MCG/2 ML VIAL ONE (10:52)
[2019-01-20] MEDS ORDERED: hydrOXYzine 25 MG TAB PO PRN (10:55)
[2019-01-20] MEDS ORDERED: diphenhydrAMINE 25 MG CAP PO PRN (10:58)
[2019-01-20] MEDS ORDERED: Acetaminophen 325 MG TAB PO PRN (10:58)
[2019-01-20] MEDS ORDERED: Fentanyl 100 MCG/2 ML VIAL SLOW IVP PRN (10:58)
[2019-01-20] MEDS ORDERED: Neomycin-Polymyxin 1 ML AMP ONE (11:35)
[2019-01-20] MEDS ORDERED: Ondansetron HCl/PF 4 MG/2 ML Vial IVP PRN (12:08)
[2019-01-20] MEDS ORDERED: Promethazine HCl 25 MG/ML VIAL SLOW IVP PRN (12:08)
--- NOTE | 2019-01-20 13:06 | RAD ---
XR Hip Lt 2-3 View History: Left total hip Comparison: None. Findings: Satisfactory appearance left total hip arthroplasty. Expected postoperative gas and edema. Impression: Satisfactory postoperative appearance.
[2019-01-20] MEDS ORDERED: diphenhydrAMINE 50 MG/ML VIAL ONE (14:09)
--- NOTE | 2019-01-20 14:40 | OP ---
DATE OF PROCEDURE: 01/20/2019 PREOPERATIVE DIAGNOSIS: Severe arthritis of the left hip. POSTOPERATIVE DIAGNOSIS: Severe arthritis of the left hip. PROCEDURE PERFORMED: Left total hip replacement. ANESTHESIA: General. DESCRIPTION OF PROCEDURE: The patient had epidural block performed prior to surgery. She was given preoperative IV antibiotics, taken to the operating room, placed in the supine position. Satisfactory general anesthesia was performed. The patient was then placed in the right lateral decubitus position. All bony prominences were well padded, and the left hip and lower extremity were sterilely prepped and draped in usual fashion. A longitudinal incision was made, centered over the greater trochanter, approximately 7 inches in length, and an anterolateral approach was made to the hip joint. The anterior capsule was excised. The hip joint was dislocated. The hip was noted to have severe arthritis. Oscillating saw was used to cut the femoral neck. The head was measured. The soft tissue was excised. The labrum was excised, and the tissue deep in the acetabulum was removed. The acetabulum was then sequentially reamed up to 48 mm. A [employer] 50 mm hemispherical 3-hole cluster shell, which was porous, was then impacted into place and then held also with a 6.5 screw, which provided excellent fixation as well. The wound was copiously irrigated before applying the shell. Bone graft was applied, and then, once the shell was firmly impacted in and screwed in, it was again irrigated. A 10-degree hooded liner was then locked into place into the shell, and the proximal femur was then addressed initially with a box osteotome, then a hand Charnley reamer, and then, it was sequentially reamed up to a size 11. Calcar reamer was used. Different trial neck lengths were used, and the -3.5 allowed for jewish of leg length and has a good range of motion and good stability. The trial was removed, and the size 11 porous-coated standard offset stem was inserted with excellent fit. The -3.5 mm offset sleeve with 36 mm head was impacted and then reduced into the hip joint. Again, it was noted to be very stable and had good range of motion. The wound again was irrigated copiously with antibiotic solution using the high-speed fly finisher, and the wound was closed using #2 Vicryl for the anterior abductor muscles, #2 Vicryl for the iliotibial band, 0 Vicryl for the fat and subcutaneous tissue, and skin was closed with skin nelida. Sterile dressing was applied. The patient was awakened, extubated, and transferred to recovery room in stable condition. ESTIMATED BLOOD LOSS: 300 mL. COMPLICATIONS: None. Job ID: [id number]
[2019-01-20] MEDS ORDERED: Clindamycin/D5W 900 MG in Premix Bag 1 BAG IVPB SCH (16:00)
[2019-01-20] MEDS ORDERED: Ondansetron PF 4 MG/2 ML Vial ONE ×2 (16:06→19:36)
[2019-01-20] MEDS: Ketorolac Tromethamine 30 MG/ML VIAL IVP SCH ×3 (18:55→23:44)
[2019-01-20] MEDS: Carvedilol 3.125 MG TAB PO SCH (18:58)
[2019-01-20] MEDS: diphenhydrAMINE 25 MG CAP PO PRN (19:11)
[2019-01-20] MEDS ORDERED: Lidocaine 1% PF 5 ML VIAL ONE (19:36)
[2019-01-20] MEDS ORDERED: Rocuronium Bromide 10 MG/ML (10ML VIAL) ONE (19:36)
[2019-01-20] MEDS ORDERED: PROPOFOL 200 MG/20 ML VIAL ONE (19:36)
[2019-01-20] MEDS ORDERED: Glycopyrrolate 0.2 MG/ML 5 ML SYRINGE ONE (19:36)
[2019-01-20] MEDS: Ferrous Gluconate 324 MG TAB PO SCH (20:42)
[2019-01-20] MEDS: Atorvastatin Calcium 10 MG TAB PO SCH (20:42)
[2019-01-20] MEDS: Senokot S 8.6-50 MG TAB PO SCH (20:42)
[2019-01-20] MEDS: Clindamycin/D5W 900 MG in Premix Bag 1 BAG IVPB SCH (20:43)
[2019-01-20] MEDS: Apixaban 2.5 MG TAB PO SCH (20:48)
[2019-01-20] MEDS: Aspirin 81 mg Enteric Coated Tablet PO SCH (20:48)
[2019-01-20] MEDS: Mometasone/Formoterol 120 PUFF INHALER INH SCH (23:54)
[2019-01-21] MEDS: Clindamycin/D5W 900 MG in Premix Bag 1 BAG IVPB SCH (01:48)
[2019-01-21 04:52] LABS: Hemoglobin 9.2 g/dL (12.0-16.0); Mean Corpuscular HGB CONC 33.2 g/dL (32.0-36.0); Mean Corpuscular Hemoglobin 28.6 pg (27.0-31.0); Mean Corpuscular Volume 86.2 fL (78.0-98.0); Mean Platelet Volume 6.1 fL (7.4-10.4); Platelet Count 422 thou/uL (130-400); RBC Distribution Width 15.2 % (11.5-14.5); White Blood Cell (WBC) Count 11.2 thou/uL (4.8-10.8)
[2019-01-21] MEDS: Ketorolac Tromethamine 30 MG/ML VIAL IVP SCH ×2 (05:10→12:59)
[2019-01-21] MEDS: diphenhydrAMINE 25 MG CAP PO PRN ×2 (05:17→08:33)
[2019-01-21] MEDS: Sodium Chloride 0.9% 1,000 ML IV SCH ×2 (05:30→14:47)
[2019-01-21] MEDS: Mometasone/Formoterol 120 PUFF INHALER INH SCH ×2 (07:13→20:39)
[2019-01-21] MEDS: Senokot S 8.6-50 MG TAB PO SCH ×2 (08:32→20:43)
[2019-01-21] MEDS: Aspirin 81 mg Enteric Coated Tablet PO SCH ×2 (08:32→20:44)
[2019-01-21] MEDS: Ferrous Gluconate 324 MG TAB PO SCH ×2 (08:33→20:43)
[2019-01-21] MEDS: Multivitamin W/ Minerals 1 TAB PO SCH (08:33)
[2019-01-21] MEDS: Apixaban 2.5 MG TAB PO SCH (08:35)
[2019-01-21] MEDS: Carvedilol 3.125 MG TAB PO SCH (08:35)
[2019-01-21] MEDS ORDERED: Furosemide 20 MG TAB PO SCH (09:00)
[2019-01-21] MEDS ORDERED: Aspirin 81 mg Enteric Coated Tablet PO SCH (09:00)
[2019-01-21] MEDS ORDERED: Potassium Chloride 20 MEQ TAB PO SCH (09:00)
[2019-01-21] MEDS ORDERED: Losartan 25 MG TAB PO SCH (09:00)
[2019-01-21] MEDS ORDERED: Non-Formulary Item 1 EACH (Diltiazem Hcl [Diltiazem Er 24 Hr] 180 MG) PO SCH (09:00)
[2019-01-21 11:03] VITALS: BMI 22.3
[2019-01-21] MEDS ORDERED: Acetaminophen 650 MG Suppository PR PRN (12:40)
[2019-01-21] MEDS ORDERED: Benzonatate 100 MG CAP PO PRN (12:44)
[2019-01-21] MEDS: Bupivacaine 10 ML in Sodium Chloride 0.9% 90 ML EPIDURAL SCH (12:59)
[2019-01-21 13:35] LABS: Lactic Acid 3.3 mmol/L (0.5-2.2)
[2019-01-21 13:39] LABS: ALT (SGPT) 49 U/L (8-55); AST (SGOT) 80 U/L (5-34); Albumin 3.5 g/dL (3.4-4.8); Alkaline Phosphatase 101 U/L (40-110); Anion Gap 13 mmol/L (10-20); BUN (Urea Nitrogen) 24 mg/dL (9.8-20.1); Bilirubin, Total 0.9 mg/dL (0.2-1.2); Calc. Creatinine Clearance 20 mL/min (70-130); Calcium 9.1 mg/dL (7.8-10.44); Carbon Dioxide 19 mmol/L (23-31); Chloride 95 mmol/L (98-107); Estimated GFR-MDRD 27; Globulin 2.6 g/dL (2.4-3.5); Glucose 76 mg/dL (83-110); Potassium 5.2 mmol/L (3.5-5.1); Protein, Total 6.1 g/dL (6.0-8.3); Sodium 122 mmol/L (136-145)
[2019-01-21] MEDS: hydrOXYzine 25 MG TAB PO SCH ×3 (14:35→20:43)
--- NOTE | 2019-01-21 14:35 | RAD ---
PORTABLE CHEST 1 VIEW: Date: 01/21/19 Time: 1249 hours HISTORY: Cough, shortness of breath. FINDINGS/IMPRESSION: Comparison made with exam of 05/24/18. The heart size is stable. Chronic changes in the lung torres are again seen. There is continued blunt ing of the costophrenic angles. No lobar consolidation, pneumothoraces, keshav pulmonary edema, or lar ge effusions are seen. POS: [facility]
--- NOTE | 2019-01-21 14:40 | CON ---
DATE OF CONSULTATION: PRIMARY CARE PHYSICIAN: Isiah Sánchez MD REASON FOR CONSULTATION: Medical management. CHIEF COMPLAINT: Decreased urinary output and itchy. HISTORY OF PRESENT ILLNESS: Ms. Fenton is an 83-year-old woman who has undergone a left total hip replacement done yesterday. She has a known history of COPD, hypertension, hyperlipidemia, and takotsubo cardiomyopathy; therefore, referred for medical management. The patient apparently has been having difficulties with decreased urinary output, and the on-call physician was notified early hours this morning. She does have a Krause catheter in place and has had very minimal amount of output of darkened urine. She denies any sensation of bladder fullness. The fluids were increased to 125 mL/h. Apparently, bladder scan was done early hours this morning, and she had only 40 mL in her bladder. The patient was noted to have a small amount of blood around the catheter when she was transferred to the chair , but the patient denies noting any significant bleeding, and it may have been due to trauma from the Krause catheter insertion as per nurse. She denies abdominal pain. She has been attempting to maintain fluid intake by mouth. She does complain of a cough that has started this morning and is productive for brown sputum. She has not had any fevers, chills, or sweats. Denies any hemoptysis. Does not have any chest pain, palpitations, or shortness of breath. She does have COPD, but states her breathing feels like it normally is at baseline. She does have oxygen in place, which she states she uses at home intermittently in addition to the DuoNebs 4 times a day. The patient has not received any DuoNebs while in the hospital. She states her main complaint is the constant itching for which she normally takes hydroxyzine; however, has been receiving Benadryl without much improvement. She denies any headaches or dizziness. Per previous records, she had an echo done on March 27, 2018 which showed an EF of 35% to 40%. with overall left ventricular function moderately depressed and moderately dilated left atrium. There was hypokinetic motion of the septal wall noted in the left ventricle with mild MR and mild TR present. The aortic valve was sclerotic with mitral annular calcification present as well. Dr. Jo is her medical staff services coordinator who she last saw in June 2018. PAST MEDICAL HISTORY: 1. Chronic lung disease. 2. Chronic CHF with an EF of 35% to 40%. 3. CAD. 4. Prior history of lung cancer. 5. Moderate to severe COPD. 6. Hypertension. 7. Hyperlipidemia. 8. Chronic pruritus. 9. Home O2 p.r.n. 10. History of atrial flutter for which she saw Dr. Jo in June 2018. PAST SURGICAL HISTORY: 1. Cholecystectomy. 2. Left lower lung resection. 3. Left total hip replacement. SOCIAL HISTORY: The patient lives with her . She is fully independent and mobilizes without the use of any assistive devices. She no longer smokes, so she did smoke heavily in the past. She quit 10 years ago. Denies any alcohol or illicit drug use. FAMILY HISTORY: Noncontributory. ALLERGIES: 1. ERYTHROMYCIN. 2. CODEINE. 3. HYDROCODONE. 4. MORPHINE. 5. OXYCODONE. 6. PENICILLIN. 7. VICODIN. CURRENT MEDICATIONS: 1. Diltiazem. 2. Furosemide. 3. Atarax. 4. Ipratropium albuterol sulfate (DuoNebs). 5. Losartan. 6. Potassium chloride. 7. Symbicort. 8. Tramadol. 9. Aspirin. 10. Atorvastatin. 11. Carvedilol. REVIEW OF SYSTEMS: All other review of systems apart from those mentioned above in HPI are negative. The patient reports having a bowel movement yesterday and states it was normal without any diarrhea or constipation or blood in her stool. PHYSICAL EXAMINATION: GENERAL: The patient appears well developed, well nourished, sitting comfortably in a chair and in no acute distress. VITAL SIGNS: Temperature 97.7, pulse 89, respirations 16, O2 saturation 92% on room air, and blood pressure 107/57. HEENT: Normocephalic and atraumatic. Pupils are equal, round, and reactive to light. Sclerae without icterus. Oropharynx is notable for dry oral mucosa, otherwise clear. NECK: Supple without lymphadenopathy. LUNGS: Notable for expiratory wheezing throughout all lung torres. No crackles. CARDIAC: Regular rate and rhythm. ABDOMEN: Soft, nontender, and nondistended. Normoactive bowel sounds present. EXTREMITIES: No lower leg swelling or edema present. No calf tenderness. NEUROLOGIC: Alert and oriented x3. SKIN: Without rash or jaundice. However, she is pruritic with a small area of excoriation on her right elbow. LABORATORY STUDIES: White blood count 11.2, hemoglobin 9.2, hematocrit 27.6, and platelets 422. IMAGING DATA: Hip x-ray, 01/20/2019, satisfactory postoperative appearance. IMPRESSION AND PLAN: Ms. Fenton is a very pleasant 83-year-old woman who has been referred for medical management given her extensive comorbidities. We will manage the following; 1. Decreased urinary output. Laboratory studies requested including renal function. Urine in Krause bag appears darkened, but no evidence of keshav hematuria. IV fluids were increased early hours this morning to 125 mL/h. We will repeat a bladder scan to ensure the patient is not retaining any urine and potentially required repositioning of the Krause catheter as there appears to have been some trauma associated with its placement. At present, she denies any abdominal pain or suprapubic discomfort. We will continue fluids for now. 2. Low hemoglobin. Hemoglobin today was 9.2 and 15.5 on 01/16/2019. This could be dilutional, possibly as a result of any blood loss during her surgery. We will repeat H and H to assess current hemoglobin. There is no evidence of any active bleeding. We will continue to monitor. Transfuse if necessary. 3. Productive cough. The patient denies any associated shortness of breath. She does have a history of severe chronic obstructive pulmonary disease. We will initiate scheduled DuoNebs. Chest x-ray requested to assess for any evidence of fluid overload versus infection. Sputum is brown in color, which she states normally happens with lung infection. Lactic acid and procalcitonin also added onto labs. 4. Cardiomyopathy. The patient with ejection fraction of 35% to 40%. Again, a chest x-ray will help to determine if any evidence of fluid overload. May need to cut down her fluids, but at present, she has no evidence of crackles or lower extremity edema. BNP added on to labs. 5. Hypertension. Blood pressure is actually on the lower side at 107/57. We will monitor blood pressure and hold antihypertensives. 6. Pain. Currently, well controlled and medications being adjusted by surgical team given underlying itching. 7. Chronic pruritus. The patient states she normally takes Atarax at home for this, which has not been given. This has been changed from p.r.n. to as scheduled. 8. Gastrointestinal prophylaxis. Famotidine 20 mg IV b.i.d. 9. Deep venous thrombosis prophylaxis. Mechanical SCDs. 10. Code status, full. Surrogate decision maker is her , Hayden Fenton. 11. The patient's case to be discussed with attending for further recommendations. Job ID: [id number] MTDD
[2019-01-21] MEDS ORDERED: Sodium Bicarbonate Tab 325 MG TAB PO SCH (16:15)
[2019-01-21 17:38] LABS: Bilirubin Negative (Negative); Blood, Urine 2+ (Negative); Clarity Clear (Clear); Glucose, Urine (Dipstick) Normal (Negative); Leukocyte 75 Leu/uL (Negative); Nitrite Negative (Negative); Protein, Urine (Dipstick) 30 mg/dL (Neg-Trace); RBC/HPF Greater than 50 HPF (0-3); Squamous Epithelial 0-3 HPF (0-3); Urobilinogen Normal mg/dL (Less than 2)
[2019-01-21 17:39] LABS: Bacteria/HPF 1+ HPF (None Seen)
[2019-01-21 17:40] LABS: Urine Culture Reflex Yes Yes
[2019-01-21 17:53] LABS: Creatinine, Urine 132.66 mg/dL (47-110); Protein, Urine Random Quant 33 mg/dL (1-14); Sodium, Urine Less than 20 mmol/L (Not Available)
[2019-01-21 18:16] LABS: Anion Gap 12 mmol/L (10-20); BUN (Urea Nitrogen) 23 mg/dL (9.8-20.1); Calc. Creatinine Clearance 22 mL/min (70-130); Calcium 8.9 mg/dL (7.8-10.44); Carbon Dioxide 17 mmol/L (23-31); Chloride 99 mmol/L (98-107); Estimated GFR-MDRD 30; Glucose 102 mg/dL (83-110); Potassium 5.8 mmol/L (3.5-5.1); Sodium 122 mmol/L (136-145)
[2019-01-21] MEDS ORDERED: Sodium Bicarbonate 150 MEQ in Dextrose 5% in Water 1,000 ML IV SCH (19:15)
[2019-01-21] MEDS: Atorvastatin Calcium 10 MG TAB PO SCH (20:43)
[2019-01-21] MEDS: Sodium Bicarbonate Tab 325 MG TAB PO SCH (20:43)
[2019-01-21] MEDS: traMADol HCl 50 MG TAB PO PRN (20:48)
[2019-01-21] MEDS ORDERED: Famotidine/PF 20 mg/2ml Vial SLOW IVP SCH (21:00)
--- NOTE | 2019-01-21 23:22 | PRG ---
DATE OF SERVICE: 01/21/2019 SUBJECTIVE: The patient underwent a left total hip replacement. She has had good pain control with the epidural. The patient is concerned because she usually forgets things. She has also had poor urine output, and she is currently being followed by Medicine and Cardiology. Urology is also seeing her. OBJECTIVE: VITAL SIGNS: The patient has been afebrile, O2 saturation 92% on room air, blood pressure 107/57. LABORATORY DATA: Her hemoglobin this morning was 10, hematocrit 30.6. Potassium slightly elevated at 5.2, sodium low at 122, but it was low prior to surgery as well. Her kidney function slightly elevated. BUN is 24, creatinine 1.78. ASSESSMENT AND PLAN: The patient will continue to work with Physical and Occupational Therapy, getting out of bed and ambulating and exercising. She will continue to be followed by above-mentioned medical teams. I did explain to the patient that for being forgetful within the 1st 24 and 48 hours after general anesthetic is not that unusual and expect her mind to clear over the next day or 2. Job ID: [id number]
[2019-01-22 05:23] LABS: #Basophils 0.1 thou/uL (0.0-0.2); #Eosinphils 0.5 thou/uL (0.0-0.7); #Lymphocytes 1.4 thou/uL (1.20-3.40); #Monocytes 1.3 thou/uL (0.11-0.59); #Neutrophils 7.8 thou/uL (1.40-6.50); %Basophils 0.5 % (0.0-1.0); %Eosinophils 4.2 % (0.0-10.0); %Lymphocytes 12.5 % (21.0-51.0); %Monocytes 11.6 % (0.0-10.0); %Neutrophils 71.2 % (42.0-75.0); Hemoglobin 8.4 g/dL (12.0-16.0); Mean Corpuscular Hemoglobin 27.7 pg (27.0-31.0); Mean Corpuscular Volume 86.5 fL (78.0-98.0); Mean Platelet Volume 6.4 fL (7.4-10.4); Platelet Count 391 thou/uL (130-400); RBC Distribution Width 15.2 % (11.5-14.5); Red Blood Cell (RBC) Count 3.05 mill/uL (4.20-5.40)
[2019-01-22 05:24] LABS: Hemoglobin 8.5 g/dL (12.0-16.0); Mean Corpuscular Hemoglobin 28.6 pg (27.0-31.0); Mean Corpuscular Volume 86.7 fL (78.0-98.0); Mean Platelet Volume 6.4 fL (7.4-10.4); Platelet Count 376 thou/uL (130-400); RBC Distribution Width 15.1 % (11.5-14.5); Red Blood Cell (RBC) Count 2.96 mill/uL (4.20-5.40); White Blood Cell (WBC) Count 11.1 thou/uL (4.8-10.8)
[2019-01-22 05:40] LABS: ALT (SGPT) 81 U/L (8-55); AST (SGOT) 88 U/L (5-34); Albumin 2.8 g/dL (3.4-4.8); Alkaline Phosphatase 116 U/L (40-110); Anion Gap 10 mmol/L (10-20); BUN (Urea Nitrogen) 19 mg/dL (9.8-20.1); Bilirubin, Total 0.7 mg/dL (0.2-1.2); Calc. Creatinine Clearance 33 mL/min (70-130); Calcium 8.5 mg/dL (7.8-10.44); Carbon Dioxide 26 mmol/L (23-31); Chloride 95 mmol/L (98-107); Estimated GFR-MDRD 48; Globulin 2.3 g/dL (2.4-3.5); Glucose 119 mg/dL (83-110); Phosphorus 2.9 mg/dL (2.3-4.7); Protein, Total 5.1 g/dL (6.0-8.3); Sodium 126 mmol/L (136-145)
[2019-01-22] MEDS: Bupivacaine 10 ML in Sodium Chloride 0.9% 90 ML EPIDURAL SCH ×2 (05:50→22:06)
--- NOTE | 2019-01-22 07:08 | CON ---
DATE OF CONSULTATION: 01/21/2019 REASON FOR CONSULTATION: Acute kidney injury and hyponatremia. REQUESTING PROVIDER: APRIL Mcginnis. HISTORY OF PRESENT ILLNESS: An 83-year-old female with multiple comorbidities including chronic respiratory failure from COPD and partial lung resection for lung cancer on home oxygen, chronic CHF, hypertension, and degenerative joint disease, admitted by Orthopedic Service for elective left hip arthroplasty, which she had yesterday on January 20. The patient was noted to have poor urine output overnight and was started on normal saline on 125 with improvement in blood pressure. The patient also was noted to have hypotension with blood pressures ranging from 80s to 100 postoperatively. With IV fluid, urine output improved a little and blood pressure improved also. The patient also admitted to nausea and abdominal discomfort earlier in the day, which has improved currently. She denied vomiting or change in bowel habit or diarrhea, fever, worsening shortness of breath. She admitted to cough with some sputum production, which has subsided. The patient had epidural anesthesia, for which she is still getting some treatment at this time. She denied dizziness or focal weakness. Review of medical record showed that the patient had normal creatinine of 0.85 on January 16, 2019. She also had sodium of 129 on January 16, but review of medical record showed mild hyponatremia ranging from 126 to 135 in the last several years. There was no blood draw on admission and BMP obtained earlier today showed acute elevation in creatinine to 1.7. BUN also went down to 122. The patient denied dizziness, worsening weakness, memory lapses, or focal weakness. She admitted that oral intake has been poor in the last 24 hours due to n.p.o. for surgery as well as nausea and poor appetite post surgery. The patient was receiving Toradol for analgesic and also was on Cozaar, furosemide, and potassium supplementation. PAST MEDICAL HISTORY: 1. Chronic obstructive pulmonary disease. 2. Chronic CHF. 3. Cardiomyopathy with ejection fraction of 35% to 40%. 4. Chronic respiratory failure, on home oxygen. 5. Lung cancer, status post resection. 6. Hypertension. 7. Hyperlipidemia. 8. Chronic pruritus. 9. Paroxysmal atrial flutter. 10. Degenerative joint disease. PAST SURGICAL HISTORY: 1. Cholecystectomy. 2. Left lower lung resection. 3. Left total hip replacement. FAMILY HISTORY: Reviewed, but noncontributory. SOCIAL HISTORY: The patient lives with . She ambulates with an assistive device. She used to smoke, but stopped about 16 years ago. Denied alcohol or recreational drug use. ALLERGIES: REPORTS ALLERGIC REACTION AND ADVERSE REACTION TO THE FOLLOWING MEDICATIONS; 1. ERYTHROMYCIN. 2. CODEINE. 3. MORPHINE. 4. HYDROCODONE. 5. OXYCODONE. 6. PENICILLIN. 7. VICODIN. MEDICATIONS: Home medications; 1. Diltiazem 30 mg q.i.d. p.r.n. for palpitation. 2. Diltiazem ER 180 mg p.o. daily in the morning. 3. Lasix 20 mg p.o. daily. 4. Atarax 25 mg q.i.d. p.r.n. for pruritus. 5. DuoNeb 3 mL nebulization q.i.d. p.r.n. for shortness of breath and wheezing. 6. Losartan 100 mg p.o. daily. 7. Potassium chloride 40 mEq p.o. daily. 8. Symbicort two puffs inhalation b.i.d. 9. Tramadol 50 mg p.o. p.r.n. for pain. 10. Eliquis 2.5 mg p.o. b.i.d. 11. Aspirin 81 mg p.o. daily. 12. Lipitor 10 mg p.o. daily at bedtime. 13. Carvedilol 3.125 mg p.o. b.i.d. Current hospital medications; 1. Normal saline 125 mL/h. 2. Bupivacaine epidural infusion. 3. Clindamycin 900 mg x2 doses completed. 4. Toradol 50 mg q.6 hours. 5. Pepcid 20 mg IV q.12 hours. 6. Eliquis 2.5 mg p.o. b.i.d. 7. Aspirin 81 mg p.o. b.i.d. 8. Lipitor 10 mg p.o. daily at bedtime. 9. Carvedilol 3.125 p.o. b.i.d. 10. Diltiazem 180 mg p.o. daily. 11. Ferrous gluconate 324 mg p.o. b.i.d. 12. Lasix 20 mg p.o. daily. 13. Atarax 25 mg q.i.d. 14. DuoNeb 3 mL nebulization q.6. 15. Losartan 100 mg p.o. daily. 16. Mometasone/formoterol 200 mcg/5 mcg. 17. Dulera two puffs inhalation b.i.d. 18. Multivitamin one tablet p.o. daily. 19. Potassium chloride 40 mEq p.o. daily. 20. Sennosides docusate sodium 2 tablets p.o. b.i.d. 21. Tramadol 100 mg p.o. q.6 p.r.n. for pain. REVIEW OF SYSTEMS: 12-point review of system performed was negative other than pertinent positives and negatives included in the history of present illness. PHYSICAL EXAMINATION: VITAL SIGNS: Current vitals showed temperature 97.9, pulse 80, respiratory rate 16, SpO2 of 96% on room air, blood pressure is 134/75. Review of blood pressure showed that since 6 p.m. yesterday, blood pressures have been soft, ranging from 80s to low 100 with a sharmin of 88. GENERAL: Comfortable, healthy-looking elderly female, in no obvious distress. Afebrile. Anicteric. Acyanotic. HEENT: Normocephalic and atraumatic. Oral mucosa is moist. NECK: Supple. Nontender with good range of motion. No JVD or masses appreciated. CARDIOVASCULAR: Regular rhythm and rate with normal heart sounds one and two. RESPIRATORY: Fair air entry bilaterally with some scattered transmitted breath sounds and rhonchi. Work of breathing is not increased and there is no use of accessory muscles. GI: Full, soft, nontender, nondistended with normal bowel sounds. UROGENITAL: Krause catheter is in place draining about 100 mL of urine in the bag. MUSCULOSKELETAL/EXTREMITIES: Left lateral hip surgical dressing noted. Mild proximal thigh edema appreciated as well. Otherwise, feet and legs are grossly normal with no edema or erythema. The patient moves all extremities. EDITOR MAP: Conscious, alert, oriented x3 with appropriate mental status. Cranial nerves 2 through 12 are grossly intact. The patient moves all extremities. LABORATORY DATA: CBC today showed WBC count of 11.2, hemoglobin of 9.2, MCV of 86.2, platelets of 422. BMP today showed sodium 122, potassium 5.2, chloride 95, CO2 of 19, BUN 24, creatinine 1.78, glucose 76, calcium 9.1, total bilirubin 0.9, AST 80, ALT 49, alkaline phosphatase 101, total protein 6.1, albumin 3.5, globulin 2.6. Lactic acid is 3.3. BNP is 54.1. Procalcitonin is 0.10. IMAGING STUDIES: Chest x-ray showed stable heart size with chronic changes in the lung torres. There is blunting of costophrenic angles, which is not new and there is no lobar consolidation, pneumothorax, keshav pulmonary edema, or large pleural effusion. ASSESSMENT: 1. Acute kidney injury: This is most likely either hemodynamic mediated due to hypotension and volume depletion related to general anesthesia or ATN from hypoperfusion and hypotension. The patient also has been on losartan and also got Toradol. Baseline creatinine ranges from 0.7 to 0.8 and has been stable in the last several years with last creatinine of 0.8 on January 16. 2. Hyponatremia: Acuity cannot be assessed at this time. However, the patient has sodium of 129 on January 16 and it worsened this afternoon at 122. There was no labs yesterday. The patient clearly has chronic hyponatremia with acute worsening, which happened within the last 5 days. It is clearly acute or subacute, however, the patient is completely asymptomatic at this time. Differentials include appropriate ADH secretion due to volume depletion, superimposed on chronic hyponatremia or inappropriate ADH secretion, which is made worse by treatment with crystalloids. The patient admitted to nausea and oral intake has been poor and she has been drinking some free water since after surgery, which may have worsen hyponatremia if she has syndrome of inappropriate antidiuretic hormone secretion. 3. Hypotension: [place] to be volume depletion as well as anesthetics and medications. The patient is on antihypertensives and diuretics. 4. Hyperkalemia, mild: This is most likely due to supplementation. The patient is on potassium chloride. 5. Metabolic acidosis: Mild. This most likely is due to acidosis from chronic kidney disease as well as from hypoperfusion. 6. Volume status: The patient is euvolemic or mildly hypovolemic. PLAN: 1. Agree with crystalloid therapy to 1 L. We will recheck BMP in the next 4 hours. If sodium drops any further, we will treat with hypertonic solution. We will discontinue diuretic, losartan, and potassium supplementation. 2. We will also get urine electrolytes as well as urinalysis and urine and plasma osmolality. 3. We will avoid other nephrotoxic agents including Toradol. 4. We will hold antihypertensives for now to hemodynamically stabilize. 5. Further recommendation to follow depending on hospital course and review of other diagnostic tests. Many thanks for involving us in the care of this patient. We will follow along with you. Job ID: [id number]
[2019-01-22] MEDS: Mometasone/Formoterol 120 PUFF INHALER INH SCH ×2 (08:07→18:21)
[2019-01-22] MEDS: traMADol HCl 50 MG TAB PO PRN ×3 (08:44→22:04)
[2019-01-22] MEDS: Acetaminophen 325 MG TAB PO PRN ×2 (08:45→14:58)
[2019-01-22] MEDS: Ferrous Gluconate 324 MG TAB PO SCH ×2 (08:46→20:20)
[2019-01-22] MEDS: hydrOXYzine 25 MG TAB PO SCH ×4 (08:46→20:20)
[2019-01-22] MEDS: Multivitamin W/ Minerals 1 TAB PO SCH (08:46)
[2019-01-22] MEDS: Sodium Bicarbonate Tab 325 MG TAB PO SCH ×3 (08:46→20:20)
[2019-01-22] MEDS: Senokot S 8.6-50 MG TAB PO SCH ×2 (08:46→20:35)
[2019-01-22] MEDS: Aspirin 81 mg Enteric Coated Tablet PO SCH ×2 (08:47→20:20)
[2019-01-22] MEDS ORDERED: Famotidine/PF 20 mg/2ml Vial SLOW IVP SCH (09:00)
--- NOTE | 2019-01-22 15:26 | PRG ---
DATE OF SERVICE: 01/22/2019 SERVICE: Nephrology. SUBJECTIVE: An 83-year-old female being followed up for acute renal failure post left hip arthroplasty. The patient reports feeling better today. Denied nausea, vomiting, or abdominal pain. There is no shortness of breath or leg swelling. OBJECTIVE: VITAL SIGNS: Temperature 97.8, pulse 93, respiratory rate 16, SpO2 of 93% on room air, blood pressure is 137/70. GENERAL: Healthy-looking elderly female, in no obvious distress. Afebrile. Anicteric. Acyanotic. HEENT: Normocephalic, atraumatic. Oral mucosa is moist. NECK: Supple, nontender with no JVD. CARDIOVASCULAR: Regular rhythm and rate with normal heart sounds 1 and 2. RESPIRATORY: Fair air entry bilaterally with scattered transmitted sounds and few crackles. Few rhonchi also was appreciated. GI: Full, soft, nontender, nondistended with normal bowel sounds. EXTREMITIES: Grossly normal looking atraumatic with no edema or erythema. UROGENITAL: Krause catheter is in place draining urine. GEODETIC ENGINEER: Conscious and alert and oriented x3 with appropriate mental status. DIAGNOSTIC DATA: CBC showed WBC count of 11, hemoglobin of 8.4, platelets of 391. CMP showed sodium 126, potassium 5.0, chloride 95, CO2 of 26, BUN 19, creatinine 1.08, glucose 119, calcium 8.5, phosphorus 2.9, total bilirubin 0.9, AST 88, ALT 81, alkaline phosphatase 116, total protein 5.1, albumin 2.8, globulin 2.3. Urinalysis on January 21 showed yellow clear urine with pH of 5.5, specific gravity of 1.015, urine protein of 30 mg/dL. Negative ketone, nitrite, bilirubin. Blood is 2+. Leukocyte esterase is positive. Microscopy showed more than 50 rbc and 11 to 20 wbc. Plasma osmolality on January 21 was 272 while urine osmolality was 332. Urine electrolytes showed total protein 33 mg/dL. Urine creatinine of 132 and urine sodium less than 20. ASSESSMENT: 1. Acute kidney injury: This is due to hemodynamic factors mediated by hypotension, volume depletion, as well as effect of losartan and Toradol. Creatinine is down to 1.08 from 1.7. Not yet back to baseline, but significantly improved. 2. Hyponatremia: This is appropriate ADH secretion due to volume contraction superimposed on presumed syndrome of inappropriate antidiuretic hormone secretion. Sodium is up from 122 to 126 today. 3. Hyperkalemia: This is due to chronic kidney disease as well as supplementation with potassium chloride. Treated with Kayexalate. Potassium currently is 5.0. 4. Metabolic acidosis: Improved with alkaline therapy. 5. Volume status: The patient is euvolemic. PLAN: 1. We will discontinue IV fluid therapy to avoid fluid overload. We will continue to hold nephrotoxic agent including losartan and diuretics as well as potassium supplementation. 2. We will restart Cardizem for atrial fibrillation. 3. We will start gentle fluid restriction to 1.8 L in 24 hours. We will recheck renal function in the morning as well as electrolytes. [place] solute intake advised. Further treatment to follow depending . Job ID: [id number]
[2019-01-22] MEDS ORDERED: Polyethylene Glycol 3350 17 GM Packet PO PRN (18:47)
[2019-01-22] MEDS: Atorvastatin Calcium 10 MG TAB PO SCH (20:19)
[2019-01-23 05:45] LABS: Hemoglobin 8.2 g/dL (12.0-16.0); Mean Corpuscular HGB CONC 32.7 g/dL (32.0-36.0); Mean Corpuscular Hemoglobin 28.7 pg (27.0-31.0); Mean Corpuscular Volume 87.7 fL (78.0-98.0); Mean Platelet Volume 6.2 fL (7.4-10.4); Platelet Count 377 thou/uL (130-400); RBC Distribution Width 15.2 % (11.5-14.5); Red Blood Cell (RBC) Count 2.85 mill/uL (4.20-5.40)
[2019-01-23 06:08] LABS: Albumin 2.6 g/dL (3.4-4.8); Anion Gap 6 mmol/L (10-20); BUN (Urea Nitrogen) 13 mg/dL (9.8-20.1); BUN/Creatinine Ratio 17.33; Calc. Creatinine Clearance 48 mL/min (70-130); Calcium 9.1 mg/dL (7.8-10.44); Carbon Dioxide 32 mmol/L (23-31); Chloride 95 mmol/L (98-107); Estimated GFR-MDRD 73; Glucose 98 mg/dL (83-110); Magnesium 1.6 mg/dL (1.6-2.6); Phosphorus 2.6 mg/dL (2.3-4.7); Potassium 4.6 mmol/L (3.5-5.1); Sodium 128 mmol/L (136-145)
[2019-01-23] MEDS: traMADol HCl 50 MG TAB PO PRN ×2 (06:22→20:28)
[2019-01-23] MEDS: Acetaminophen 325 MG TAB PO PRN (06:23)
[2019-01-23] MEDS: Mometasone/Formoterol 120 PUFF INHALER INH SCH ×2 (07:41→19:12)
[2019-01-23] MEDS: Senokot S 8.6-50 MG TAB PO SCH ×2 (09:44→20:27)
[2019-01-23] MEDS: hydrOXYzine 25 MG TAB PO SCH (09:44)
[2019-01-23] MEDS: Ferrous Gluconate 324 MG TAB PO SCH ×2 (09:44→20:29)
[2019-01-23] MEDS: Multivitamin W/ Minerals 1 TAB PO SCH (09:44)
[2019-01-23] MEDS: Carvedilol 3.125 MG TAB PO SCH ×2 (09:45→17:58)
[2019-01-23] MEDS: Aspirin 81 mg Enteric Coated Tablet PO SCH (09:45)
--- NOTE | 2019-01-23 10:04 | PRG ---
DATE OF SERVICE: 01/23/2019 SERVICE: Nephrology. SUBJECTIVE: An 83-year-old female status post right hip arthroplasty, being followed up for acute kidney injury and hyponatremia. Reports feeling better. Denied nausea, vomiting, or change in bowel habit. Discharge is contemplated. OBJECTIVE: VITAL SIGNS: Temperature 98, pulse 89, respiratory rate 16, SpO2 of 94 on room air, blood pressure is 125/71. GENERAL: Healthy-looking elderly female, in no distress. HEENT: Normocephalic and atraumatic. Oral mucosa is moist. CARDIOVASCULAR: Regular rhythm and rate with normal heart sounds 1 and 2. RESPIRATORY: Fair air entry bilaterally with some transmitted breath sounds and few crackles. No obvious use of accessory muscles appreciated. GI: Full, soft, nontender, nondistended with normal bowel sounds. EXTREMITIES: Left lateral hip dressing noted. Otherwise, no edema or erythema. PER ASSESSMENT NURSE: Conscious, alert and oriented x3 with appropriate mental status. Cranial nerves 2 through 12 are grossly intact. The patient moves all extremities. DIAGNOSTIC DATA: CBC showed WBC count of 12, hemoglobin of 8.2, MCV of 87.7, platelet of 377. Renal function panel showed sodium 128, potassium 4.6, chloride 95, CO2 of 32, BUN 13, creatinine 0.75, glucose 98, calcium 9.1, phosphorus 2.6, magnesium 1.6, albumin 2.6. ASSESSMENT: 1. Acute renal failure: Due to prerenal etiology from hemodynamic factors. Resolved. Creatinine is back to baseline. 2. Hyponatremia: Acute on chronic. Clinically improved. Sodium is currently 128, up from 122. 3. Metabolic acidosis: Resolved. 4. Hypertension: Control is acceptable. PLAN: 1. Continue fluid restriction. 2. Discontinue alkali therapy with resolution of metabolic acidosis. 3. The patient can be discharged from Nephrology point of view. Follow up in the office in 2 to 3 weeks is recommended with repeat labs. Many thanks for involving us in the care of this patient. Call for any clarification or questions. Job ID: [id number]
--- NOTE | 2019-01-23 10:43 | PDOC.HOSPP ---
- Subjective Encounter Date: 01/22/19 Encounter Time: 18:30 Subjective: Patient seen and examined for med mngt. Pain controlled. No CP/dizziness/ syncope. No new complaints. No overnight events - Objective Vital Signs & Weight: Vital Signs (12 hours) Temp Pulse Resp BP Pulse Ox 01/23/19 07:29 94 18 01/23/19 07:20 98.0 F 89 16 125/71 94 L 01/23/19 03:55 98.3 F 82 16 103/62 97 01/23/19 00:44 88 16 97 01/23/19 00:16 98.3 F 84 18 97/52 L 97 Weight Weight 122 lb I&O: 01/22/19 01/23/19 01/24/19 06:59 06:59 06:59 Intake Total 2820 1320 Output Total 950 1200 Balance 1870 120 Result Diagrams: 01/23/19 05:26 01/23/19 05:26 Radiology Reviewed by me: Yes (CXR - neg) Hospitalist ROS - Review of Systems Cardiovascular: denies: chest pain, palpitations, orthopnea, paroxysmal noc. dyspnea, edema, light headedness, other Gastrointestinal: denies: nausea, vomiting, abdominal pain, diarrhea, constipation, melena, hematochezia, other - Medication Medications: Active Medications Generic Name Dose Route Start Last Admin Trade Name Freq PRN Reason Stop Dose Admin Acetaminophen 650 mg 01/20/19 09:19 01/23/19 06:23 Tylenol PO 650 mg Q4H PRN Administration Headache/Fever or Pain Albuterol/Ipratropium 3 ml 01/21/19 13:00 01/23/19 07:29 Duoneb NEB 3 ml [id number] DESIREE Administration Aspirin 81 mg 01/20/19 21:00 01/23/19 09:45 Ecotrin PO 81 mg BID DESIREE Administration Atorvastatin Calcium 10 mg 01/20/19 21:00 01/22/19 20:19 Lipitor PO 10 mg HS DESIREE Administration Carvedilol 3.125 mg 01/23/19 08:00 01/23/19 09:45 Coreg PO 3.125 mg BID-WM DESIREE Administration Diltiazem HCl 180 mg 01/21/19 09:00 01/23/19 09:44 Cardizem Cd PO 180 mg DAILY DESIREE Administration Diphenhydramine HCl 25 mg 01/20/19 09:30 01/21/19 08:33 Benadryl PO 25 mg Q3H PRN Administration Itching Emollient Cream 0 gm 01/20/19 09:30 01/21/19 05:44 Hydrocerin Cream TOP 1 applic PRN PRN Administration Itching Ferrous Gluconate 324 mg 01/20/19 21:00 01/23/19 09:44 Fergon PO 324 mg BID DESIREE Administration Hydroxyzine HCl 25 mg 01/21/19 13:00 01/23/19 09:44 Atarax PO 25 mg QID DESIREE Administration Bupivacaine HCl 10 ml/ Sodium 100 mls @ 0 mls/hr 01/21/19 12:00 01/22/19 22: 06 Chloride EPIDURAL 100 mls INF DESIREE Administration Iron/Minerals/Multivitamins 1 tab 01/21/19 09:00 01/23/19 09:44 Theragran M PO 1 tab DAILY DESIREE Administration Mometasone Furoate/Formoterol Fumar 2 puff 01/20/19 21:00 01/23/19 07:41 Dulera 200 Mcg/5 Mcg Inhaler INH 2 puff BID DESIREE Administration Senna/Docusate Sodium 1 tab 01/22/19 21:00 01/23/19 09:44 Senokot S PO 1 tab BID DESIREE Administration Sodium Chloride 10 ml 01/20/19 10:58 01/22/19 20:21 Flush - Normal Saline IVF 10 ml PRN PRN Administration Saline Flush Tramadol HCl 50 mg 01/21/19 15:55 01/23/19 06:22 Ultram PO 50 mg Q8H PRN Administration Mild Pain 1-3 - Exam General Appearance: NAD Heart: RRR, no rubs Respiratory: CTAB, no rales Gastrointestinal: soft, non-tender, normal bowel sounds Extremities: no edema Hosp A/P - Plan DVT proph w/SCDs JAYANT on CKD 2 - Prerenal 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
[2019-01-23] MEDS ORDERED: Diltiazem 125 MG in Sodium Chloride 0.9% 100 ML IVPB SCH (12:15)
--- NOTE | 2019-01-23 12:51 | PDOC.HOSPP ---
- Subjective Encounter Date: 01/23/19 Encounter Time: 12:15 Subjective: Patient seen and examined for CP. RN reported tachycardia. Palpitations +. No CP /SOB. No other complaints. No overnight events - Objective Vital Signs & Weight: Vital Signs (12 hours) Temp Pulse Resp BP Pulse Ox 01/23/19 11:01 98.3 F 141 H 18 109/73 97 01/23/19 07:29 94 18 01/23/19 07:20 98.0 F 89 16 125/71 94 L 01/23/19 03:55 98.3 F 82 16 103/62 97 01/23/19 00:44 88 16 97 01/23/19 00:16 98.3 F 84 18 97/52 L 97 Weight Weight 122 lb I&O: 01/22/19 01/23/19 01/24/19 06:59 06:59 06:59 Intake Total 2820 1320 Output Total 950 1200 Balance 1870 120 Result Diagrams: 01/23/19 05:26 01/23/19 05:26 EKG Reviewed by me: Yes (Aflutter with RVR) Hospitalist ROS - Review of Systems Constitutional: denies: fever, chills, sweats, weakness, malaise, other Respiratory: denies: cough, dry, shortness of breath, hemoptysis, SOB with excertion, pleuritic pain, sputum, wheezing, other Cardiovascular: reports: palpitations. denies: chest pain, orthopnea, paroxysmal noc. dyspnea, edema, light headedness, other Gastrointestinal: denies: nausea, vomiting, abdominal pain, diarrhea, constipation, melena, hematochezia, other - Medication Medications: Active Medications Generic Name Dose Route Start Last Admin Trade Name Freq PRN Reason Stop Dose Admin Acetaminophen 650 mg 01/20/19 09:19 01/23/19 06:23 Tylenol PO 650 mg Q4H PRN Administration Headache/Fever or Pain Albuterol/Ipratropium 3 ml 01/21/19 13:00 01/23/19 07:29 Duoneb NEB 3 ml [id number] DESIREE Administration Aspirin 81 mg 01/20/19 21:00 01/23/19 09:45 Ecotrin PO 81 mg BID DESIREE Administration Atorvastatin Calcium 10 mg 01/20/19 21:00 01/22/19 20:19 Lipitor PO 10 mg HS DESIREE Administration Carvedilol 3.125 mg 01/23/19 08:00 01/23/19 09:45 Coreg PO 3.125 mg BID-WM DESIREE Administration Diltiazem HCl 180 mg 01/21/19 09:00 01/23/19 09:44 Cardizem Cd PO 180 mg DAILY DESIREE Administration Diphenhydramine HCl 25 mg 01/20/19 09:30 01/21/19 08:33 Benadryl PO 25 mg Q3H PRN Administration Itching Emollient Cream 0 gm 01/20/19 09:30 01/21/19 05:44 Hydrocerin Cream TOP 1 applic PRN PRN Administration Itching Ferrous Gluconate 324 mg 01/20/19 21:00 01/23/19 09:44 Fergon PO 324 mg BID DESIREE Administration Hydroxyzine HCl 25 mg 01/21/19 13:00 01/23/19 09:44 Atarax PO 25 mg QID DESIREE Administration Bupivacaine HCl 10 ml/ Sodium 100 mls @ 0 mls/hr 01/21/19 12:00 01/22/19 22: 06 Chloride EPIDURAL 100 mls INF DESIREE Administration Iron/Minerals/Multivitamins 1 tab 01/21/19 09:00 01/23/19 09:44 Theragran M PO 1 tab DAILY DESIREE Administration Mometasone Furoate/Formoterol Fumar 2 puff 01/20/19 21:00 01/23/19 07:41 Dulera 200 Mcg/5 Mcg Inhaler INH 2 puff BID DESIREE Administration Senna/Docusate Sodium 1 tab 01/22/19 21:00 01/23/19 09:44 Senokot S PO 1 tab BID DESIREE Administration Sodium Chloride 10 ml 01/20/19 10:58 01/22/19 20:21 Flush - Normal Saline IVF 10 ml PRN PRN Administration Saline Flush Tramadol HCl 50 mg 01/21/19 15:55 01/23/19 06:22 Ultram PO 50 mg Q8H PRN Administration Mild Pain 1-3 - Exam General Appearance: NAD Neck: supple, no JVD Heart: no gallops, no rubs, irregular Heart - other findings: tachycardic Respiratory: CTAB, no wheezes, no rales, no ronchi Gastrointestinal: soft, non-tender, non-distended, normal bowel sounds, no palpable masses Extremities: no edema Hosp A/P - Plan PT/OT, DVT proph w/SCDs A flutter with RVR JAYANT on CKD 2 - Prerenal 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
[2019-01-23] MEDS ORDERED: hydrOXYzine 25 MG TAB PO PRN (12:53)
[2019-01-23] MEDS ORDERED: Magnesium 2 GM/50 ML 2 GM in Premix Bag 1 BAG IVPB SCH (13:00)
[2019-01-23] MEDS ORDERED: Digoxin 0.5 MG/2 ML AMP SLOW IVP SCH (14:15)
[2019-01-23] MEDS ORDERED: Sodium Chloride 0.9% 500 ML IV SCH (14:15)
--- NOTE | 2019-01-23 16:59 | PRG ---
DATE OF SERVICE: 01/23/2019 SUBJECTIVE: Ms. Fenton is status post left total hip replacement 3 days ago. Pain in the left hip is gradually decreasing, but this morning, she was having some atrial flutter which was documented with the EKG. The patient is now going to be transferred to telemetry and be under the care of the pediatric hospitalist. The patient has been afebrile. Vital signs have been stable. Her last blood pressure is 109/73, pulse is 141. Her hemoglobin is 8.2 and hematocrit is 25. The incision over the lateral aspect of the left hip is healing well. There is no erythema or no drainage. PLAN: As stated above, the patient is going to be transferred to telemetry where they will take care of the patient's atrial flutter. When she is medically cleared, she is scheduled to go to swing bed in [place] for continued therapy. Possible discharge tomorrow. Job ID: [id number]
[2019-01-23] MEDS: Atorvastatin Calcium 10 MG TAB PO SCH (20:28)
[2019-01-23] MEDS: Famotidine 20 MG TAB PO SCH (20:29)
--- NOTE | 2019-01-23 21:58 | CON ---
DATE OF CONSULTATION: HISTORY OF PRESENT ILLNESS: The patient is an 83-year-old woman with a history of Takotsubo's disease and atrial fibrillation, who was noted to be in a rapid irregular heart rhythm. The patient has a history of coronary artery disease. She had on cardiac catherization to have a 50% distal RCA lesion. In 2012, she presented with diffuse ST elevation. The patient was found to have Takotsubo's syndrome. The patient had an improvement in her ejection fraction. She underwent a PET scan, which revealed her recently to have an ejection fraction of 51% without evidence of ischemia. The patient also has been in the hospital with atrial fibrillation. She has been treated with Apixaban. She has also been on Cardizem. The patient was admitted for hip surgery. Following the procedure, the patient noted to be in a rapid irregular heart rhythm. The patient did not have any palpitations or chest discomfort. PAST MEDICAL HISTORY: 1. Atrial fibrillation. 2. Coronary artery disease. 3. Takotsubo syndrome. 4. History of lung carcinoma. 5. Dyslipidemia. PAST SURGICAL HISTORY: Lumbar lower lobectomy, cholecystectomy. SOCIAL HISTORY: Former smoker. ALLERGIES: PENICILLIN, HYDROCODONE, OXYCODONE. and STEROIDS. MEDICATIONS: 1. Cardizem 180 daily. 2. Coreg 3.125 b.i.d. 3. Lipitor 40 at bedtime. 4. Aspirin 81 daily. 5. Losartan 100 daily. 6. Lasix 20 daily. 7. Apixaban 2.5 b.i.d. REVIEW OF SYSTEMS: Ten-point system otherwise unremarkable. PHYSICAL EXAMINATION: GENERAL: This is a well developed woman, in no acute distress. VITAL SIGNS: Blood pressure of 109/73. NECK: Showed no jugular venous distention. LUNGS: Clear to auscultation. HEART: Regular rate and rhythm with a normal S1, S2. ABDOMEN: Nondistended. EXTREMITIES: Showed no edema. VASCULAR: Radial pulses are 2+. LABORATORY RESULTS: White blood cell count 12.0, hemoglobin 8.2, hematocrit 25.0, and platelets are 377. Sodium 128, potassium 4.6, chloride 95, bicarbonate 32, BUN 13, creatinine 0.75. Her EKG revealed to have atrial fibrillation with a nonspecific T-wave abnormality. IMPRESSION: 1. Recurrent atrial fibrillation, paroxysmal. 2. History of takotsubo's syndrome. 3. History of single-vessel coronary artery disease. 4. History of lung carcinoma. 5. Chronic obstructive pulmonary disease. This patient underwent hip surgery. Following the procedure, she developed atrial fibrillation. The patient had converted spontaneously back to normal sinus rhythm. She did not receive her Cardizem for several days. She has also been off Eliquis. From a cardiac standpoint, she will restart Cardizem. We would recommend restarting Eliquis when Orthopedic Surgery feels this is appropriate. We will follow this patient with you through her hospitalization. Job ID: [id number] MTDD
[2019-01-24] MEDS: Acetaminophen 325 MG TAB PO PRN (01:36)
[2019-01-24 04:38] LABS: Hemoglobin 8.1 g/dL (12.0-16.0); Mean Corpuscular HGB CONC 32.3 g/dL (32.0-36.0); Mean Corpuscular Hemoglobin 28.4 pg (27.0-31.0); Mean Corpuscular Volume 87.8 fL (78.0-98.0); Mean Platelet Volume 6.7 fL (7.4-10.4); Platelet Count 466 thou/uL (130-400); RBC Distribution Width 15.3 % (11.5-14.5); Red Blood Cell (RBC) Count 2.85 mill/uL (4.20-5.40); White Blood Cell (WBC) Count 11.2 thou/uL (4.8-10.8)
[2019-01-24 05:02] LABS: ALT (SGPT) 35 U/L (8-55); AST (SGOT) 28 U/L (5-34); Albumin 2.7 g/dL (3.4-4.8); Alkaline Phosphatase 99 U/L (40-110); Anion Gap 7 mmol/L (10-20); BUN (Urea Nitrogen) 13 mg/dL (9.8-20.1); Bilirubin, Total 0.9 mg/dL (0.2-1.2); Calc. Creatinine Clearance 51 mL/min (70-130); Calcium 9.5 mg/dL (7.8-10.44); Carbon Dioxide 30 mmol/L (23-31); Chloride 96 mmol/L (98-107); Estimated GFR-MDRD 78; Globulin 2.5 g/dL (2.4-3.5); Glucose 97 mg/dL (83-110); Magnesium 1.9 mg/dL (1.6-2.6); Potassium 4.2 mmol/L (3.5-5.1); Protein, Total 5.2 g/dL (6.0-8.3); Sodium 129 mmol/L (136-145)
[2019-01-24] MEDS: Mometasone/Formoterol 120 PUFF INHALER INH SCH ×2 (06:59→21:56)
[2019-01-24] MEDS: Senokot S 8.6-50 MG TAB PO SCH ×2 (08:38→20:31)
[2019-01-24] MEDS: Carvedilol 3.125 MG TAB PO SCH ×2 (08:38→17:26)
[2019-01-24] MEDS: Multivitamin W/ Minerals 1 TAB PO SCH (08:39)
[2019-01-24] MEDS: Ferrous Gluconate 324 MG TAB PO SCH ×2 (08:39→20:31)
[2019-01-24] MEDS: Famotidine 20 MG TAB PO SCH ×2 (08:39→20:31)
--- NOTE | 2019-01-24 11:04 | PRG ---
DATE OF SERVICE: 01/24/2019 SERVICE: Nephrology. SUBJECTIVE: An 83-year-old female being followed up for hyponatremia and acute kidney injury. The patient is status post left hip replacement. Had paroxysmal atrial flutter associated with hypotension, requiring normal saline bolus yesterday. Feeling a lot better today. Denied nausea, vomiting, or change in bowel habit. OBJECTIVE: VITAL SIGNS: Temperature 97.7, pulse 71, respiratory rate 20, SpO2 of 99% on 1 L nasal cannula, and blood pressure is 129/61. GENERAL: Healthy-looking elderly female, in no distress. Afebrile. Anicteric. Acyanotic. HEENT: Normocephalic, atraumatic. Oral mucosa is moist. NECK: No JVD appreciated. CARDIOVASCULAR: Regular rhythm and rate with normal heart sounds 1 and 2. RESPIRATORY: Fair air entry bilaterally with few bibasilar crackles. No rhonchi were appreciated. GI: Full, soft, nontender, nondistended with normal bowel sounds. EXTREMITIES: Left lateral thigh surgical dressing with proximal thigh edema. Otherwise, extremities are grossly normal looking, atraumatic with no edema or erythema. MEMBERSHIP ADVISOR: Conscious, alert, oriented x3 with appropriate mental status. Cranial nerves 2 through 12 are grossly intact. The patient moves all extremities. DIAGNOSTIC DATA: CBC showed WBC count of 11.2, hemoglobin of 8.1, MCV of 87.8, and platelets of 466. CMP today showed sodium 129, potassium 4.2, chloride 96, CO2 of 30, BUN 13, creatinine 0.71, glucose 97, calcium 9.5, total bilirubin 0.9, AST 28, ALT 25, alkaline phosphatase 99, total protein 5.2, albumin 2.7, and globulin 2.5. Magnesium is 1.9. ASSESSMENT: 1. 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 Plasma sodium improved with volume expansion with albumin and crystalloids. It continued to trend up with fluid restriction at this time. 2. Acute renal failure: Resolved. Creatinine today is 0.71 from peak of 1.78. 3. Abnormal liver enzymes: Due to hypotension: Resolved. 4. Paroxysmal atrial flutter/fibrillation: Most likely related to hypomagnesemia and electrolyte derangement. The patient also had her Cardizem held due to hypotension. 5. Acute on chronic anemia due to acute blood loss related to surgery. PLAN: Continue fluid restriction at 1.8 L per 24 hours. Zimmerman solute intake advised. Other treatment as per primary attending and Cardiology. I avoid nephrotoxic agents. We will repeat BMP in the morning. Job ID: [id number]
--- NOTE | 2019-01-24 12:16 | PRG ---
DATE OF SERVICE: 01/24/2019 SUBJECTIVE: Ms. Fenton states that she is feeling in general much better this morning. She was able to get up with physical therapy. She has less pain in her left hip. She was converted to normal sinus rhythm. OBJECTIVE: VITAL SIGNS: The patient is afebrile. Last vital signs shows blood pressure 129/61, O2 saturation 99%, respiratory rate 20, and pulse 71. LABORATORY DATA: Today's laboratories hemoglobin 8.1, hematocrit 25. Sodium 129, potassium is normal at 4.2, creatinine is 0.71, and BUN 13. ASSESSMENT AND PLAN: The patient will continue to work with physical therapy to ambulate. She may weight bear as tolerated on left lower extremity. She is much more stable cardiac-thompson. The medical doctors are continuing to evaluate and treat her. She has basic metabolic panel ordered for tomorrow. Orthopedic-thompson, the patient can be discharged whenever she is medically cleared. She is scheduled to go to [place] swing bed at discharge. Job ID: [id number]
--- NOTE | 2019-01-24 15:22 | PDOC.HOSPP ---
- Subjective Encounter Date: 01/24/19 Encounter Time: 09:00 Subjective: Pt seen for followup re: hyponatremia. Says she feels well, no complaints. - Objective Vital Signs & Weight: Vital Signs (12 hours) Temp Pulse Pulse Pulse Resp BP BP 01/24/19 13:48 70 16 01/24/19 12:00 98.2 F 67 18 01/24/19 10:07 71 73 112/53 L 105/53 L 01/24/19 08:30 01/24/19 07:52 97.7 F 71 20 01/24/19 06:58 82 16 BP Pulse Ox Pulse Ox 01/24/19 13:48 96 01/24/19 12:00 104/51 L 95 01/24/19 10:07 92 L 01/24/19 08:30 99 01/24/19 07:52 129/61 99 01/24/19 06:58 96 Weight Weight 122 lb I&O: 01/23/19 01/24/19 01/25/19 06:59 06:59 05:59 Intake Total 1320 840 Output Total 1200 300 Balance 120 540 Result Diagrams: 01/24/19 04:00 01/24/19 04:00 Additional Labs: labs and MARs reviewed by me EKG Reviewed by me: Yes (Tele: NSR) Hospitalist ROS - Review of Systems Respiratory: denies: cough, shortness of breath, SOB with excertion, pleuritic pain, wheezing Cardiovascular: denies: chest pain, palpitations, orthopnea, paroxysmal noc. dyspnea, edema, light headedness - Medication Medications: Active Medications Generic Name Dose Route Start Last Admin Trade Name Freq PRN Reason Stop Dose Admin Acetaminophen 650 mg 01/20/19 09:19 01/24/19 01:36 Tylenol PO 650 mg Q4H PRN Administration Headache/Fever or Pain Albuterol/Ipratropium 3 ml 01/21/19 13:00 01/24/19 13:48 Duoneb NEB 3 ml [id number] DESIREE Administration Atorvastatin Calcium 10 mg 01/20/19 21:00 01/23/19 20:28 Lipitor PO 10 mg HS DESIREE Administration Carvedilol 3.125 mg 01/23/19 08:00 01/24/19 08:38 Coreg PO 3.125 mg BID-WM DESIREE Administration Diltiazem HCl 180 mg 01/21/19 09:00 01/24/19 08:39 Cardizem Cd PO 180 mg DAILY DESIREE Administration Diphenhydramine HCl 25 mg 01/20/19 09:30 01/21/19 08:33 Benadryl PO 25 mg Q3H PRN Administration Itching Emollient Cream 0 gm 01/20/19 09:30 01/21/19 05:44 Hydrocerin Cream TOP 1 applic PRN PRN Administration Itching Famotidine 20 mg 01/23/19 21:00 01/24/19 08:39 Pepcid PO 20 mg BID DESIREE Administration Ferrous Gluconate 324 mg 01/20/19 21:00 01/24/19 08:39 Fergon PO 324 mg BID DESIREE Administration Iron/Minerals/Multivitamins 1 tab 01/21/19 09:00 01/24/19 08:39 Theragran M PO 1 tab DAILY DESIREE Administration Mometasone Furoate/Formoterol Fumar 2 puff 01/20/19 21:00 01/24/19 06:59 Dulera 200 Mcg/5 Mcg Inhaler INH 2 puff BID DESIREE Administration Senna/Docusate Sodium 1 tab 01/22/19 21:00 01/24/19 08:38 Senokot S PO 1 tab BID DESIREE Administration Sodium Chloride 10 ml 01/20/19 10:58 01/22/19 20:21 Flush - Normal Saline IVF 10 ml PRN PRN Administration Saline Flush Tramadol HCl 50 mg 01/21/19 15:55 01/23/19 20:28 Ultram PO 50 mg Q8H PRN Administration Mild Pain 1-3 - Exam General Appearance: NAD Eye: anicteric sclera ENT: moist mucosa Neck: supple Heart: RRR Respiratory: CTAB Gastrointestinal: soft, non-tender Skin: no rashes Psychiatric: normal affect, normal behavior Hosp A/P - Plan Impression: Hyponatremia due to SIADH HTN Metabolic acidosis/Lactic acidosis Chronic systolic HF CAD Moderate PEM PLAN: Pt is now in sinus rhythm. Sodium improved to 129. JAYANT resolved. Hypomagnesemia resolved. Cont Coreg/PO Cardizem Cont fluid restriction Resume PT/OT on Tele Blood pressures low, resume Losartan when improved. Pt to go to Swing bed.
[2019-01-24] MEDS: Atorvastatin Calcium 10 MG TAB PO SCH (20:31)
[2019-01-25 06:02] LABS: Hemoglobin 8.9 g/dL (12.0-16.0); Mean Corpuscular HGB CONC 32.1 g/dL (32.0-36.0); Mean Corpuscular Hemoglobin 28.1 pg (27.0-31.0); Mean Corpuscular Volume 87.6 fL (78.0-98.0); Mean Platelet Volume 6.2 fL (7.4-10.4); Platelet Count 558 thou/uL (130-400); RBC Distribution Width 15.6 % (11.5-14.5); Red Blood Cell (RBC) Count 3.17 mill/uL (4.20-5.40); White Blood Cell (WBC) Count 10.2 thou/uL (4.8-10.8)
[2019-01-25 06:26] LABS: Anion Gap 10 mmol/L (10-20); BUN (Urea Nitrogen) 11 mg/dL (9.8-20.1); Calc. Creatinine Clearance 56 mL/min (70-130); Calcium 9.7 mg/dL (7.8-10.44); Carbon Dioxide 27 mmol/L (23-31); Chloride 98 mmol/L (98-107); Estimated GFR-MDRD 87; Glucose 92 mg/dL (83-110); Potassium 3.6 mmol/L (3.5-5.1); Sodium 131 mmol/L (136-145)
[2019-01-25] MEDS: Mometasone/Formoterol 120 PUFF INHALER INH SCH (06:58)
[2019-01-25] MEDS: Carvedilol 3.125 MG TAB PO SCH (08:53)
[2019-01-25] MEDS: Multivitamin W/ Minerals 1 TAB PO SCH (08:54)
[2019-01-25] MEDS: Famotidine 20 MG TAB PO SCH (08:54)
[2019-01-25] MEDS: Ferrous Gluconate 324 MG TAB PO SCH (08:54)
[2019-01-25] MEDS: Senokot S 8.6-50 MG TAB PO SCH (08:54)
[2019-01-25] MEDS ORDERED: Apixaban 2.5 MG TAB PO SCH (09:00)
[2019-01-25] MEDS ORDERED: Potassium Chloride 20 MEQ TAB PO SCH (09:15)
[2019-01-25 12:09] VITALS: BP 106/51; TEMP 98.5
[2019-01-25] MEDS: traMADol HCl 50 MG TAB PO PRN (13:14)
--- NOTE | 2019-01-25 13:56 | PRG ---
DATE OF SERVICE: 01/25/2019 SERVICE: Nephrology. SUBJECTIVE: An 83-year-old female, being followed up for hyponatremia and acute kidney injury. The patient is status post left hip replacement. Hospital course was complicated by development of paroxysmal atrial flutter with hypotension. Clinically improved. The patient is ambulating. Denied nausea, vomiting, or change in bowel habit. Desires to be discharged home. OBJECTIVE: VITAL SIGNS: Temperature 98.7, pulse 86, respiratory rate 20, SpO2 of 96% on room air, and blood pressure 131/63. GENERAL: Comfortable, elderly female, in no distress. Afebrile. Anicteric. Acyanotic. HEENT: Normocephalic, atraumatic. Oral mucosa is moist. CARDIOVASCULAR: Regular rhythm and rate with normal heart sounds 1 and 2. RESPIRATORY: Fair air entry bilateral with a few transmitted breath sounds and a few scattered rhonchi. No use of accessory muscles was appreciated however. GI: Full, soft, nontender, nondistended with normal bowel sounds. EXTREMITIES: Left lateral thigh surgical dressing with mild edema noted. Otherwise, extremities are grossly normal, atraumatic with no edema or erythema. SLICE PLUG CUTTER OPERATOR: Conscious, alert, oriented x3 with appropriate mental status. Cranial nerves 2 through 12 are grossly intact. The patient moves all extremities. DIAGNOSTIC DATA: CBC today showed WBC count of 10.2, hemoglobin of 8.9, platelets of . BMP showed sodium 131, potassium 3.6, chloride 98, CO2 of 27, BUN 11, creatinine 0.65, glucose 92, and calcium 9.2. Of note, sodium has gone up from a sharmin of 122 to 131. ASSESSMENT: 1. 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 We will continue fluid restriction and avoid thiazide diuretic. 2. Acute renal failure: Resolved. 3. Abnormal liver enzymes: Due to hypotension. Resolved. 4. Paroxysmal atrial flutter/fibrillation, treatment as per Cardiology. 5. Hypomagnesemia: Repleted. 6. Hypokalemia, repleted. Potassium today is 3.6. We will give 40 mEq of potassium chloride. 7. Acute on chronic anemia due to acute blood loss related to surgery. 8. Disposition: The patient can be discharged from Nephrology point of view. However, she needs to continue fluid restriction of 1.8 L per 24 hours. Avoid thiazide diuretics. Follow up with primary care physician in 1 week with repeat BMP is recommended. Job ID: [id number]
--- NOTE | 2019-01-26 08:23 | DIS ---
DATE OF ADMISSION: 01/20/2019 DATE OF DISCHARGE: 01/25/2019 HISTORY OF PRESENT ILLNESS: Please see admission history and physical. HOSPITAL COURSE: The patient was worked up medically prior to admission. She was found to be stable for surgery. She was given perioperative IV antibiotics, taken to the operating room and under general anesthetic, underwent left total hip replacement. The patient's hemoglobin was followed. On 01/22, it was 8.4, date of discharge is going up to 8.9. Her sodium fell to a low of 126. This was treated with fluid restrictions, and by date of discharge, it was up to 131. The patient had elevated potassium, this came down to 3.6. Her magnesium was 1.6, and this was brought up to 1.9. Creatinine and BUN were elevated by day of discharge and it dropped to normal. The creatinine was 0.65 and BUN was 11. The patient had an episode of atrial fibrillation and atrial flutter and was sent to the telemetry, where she was converted to normal sinus rhythm with medication. On date of discharge, her dressing was changed by me. Her incision looked very good. She had a normal amount of swelling and bruising. There was no erythema. The patient remained afebrile. Her last vital signs, blood pressure 144/68, O2 saturation 94% on room air, respiratory rate 18, pulse 86, and temperature 98.8. Left lower extremity remained neurovascularly intact. The patient was restarted on her Eliquis on the date of discharge. Arrangements were made, and the patient was discharged to swing bed in [place]. DISCHARGE DIAGNOSES: 1. 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 2. Anemia secondary to expected blood loss from surgery. 3. Atrial fibrillation and flutter, which was treated and resolved with IV medication. 4. Hyponatremia, which was improved with fluid restriction. 5. Hypertension. 6. Metabolic acidosis and lactic acidosis. 7. Chronic systolic heart failure. 8. Coronary artery disease. 9. Kidney disease, resolved. 10. Hypomagnesemia. PLAN: The patient will be discharged. She will continue with her previous home medication. I also wrote a prescription for tramadol 50 mg one every 4 to 6 hours as needed for pain #40 with 1 refill. She will follow in my office 2 weeks from the surgery. DISCHARGE DIET: Cardiac diet. ACTIVITY: The patient will continue to work with physical and occupational therapy, work on strengthening and range of motion of the left hip. She should use a walker to ambulate, to avoid any falls. Job ID: [id number]
--- NOTE | 2019-01-26 11:39 | EKG ---
Test Reason : Blood Pressure : / mmHG Vent. Rate : 127 BPM Atrial Rate : 322 BPM P-R Int : 000 ms QRS Dur : 074 ms QT Int : 304 ms P-R-T Axes : 000 051 055 degrees QTc Int : 441 ms Atrial flutter with variable A-V block Abnormal ECG Confirmed by GONZALO SERRANO ([id number]) on 01/26/2019 11:38:40 AM Referred By: MORALES Confirmed By:GONZALO SERRANO
--- NOTE | 2019-01-27 09:57 | PQF ---
RADHA DOMINGO WADE W MD [id number] [facility] 3317 [id number] CLINICAL DOCUMENTATION CLARIFICATION FORM: POST DISCHARGE Addendum to original discharge summary date: ____ Late entry note date: __ DATE:01/27/2019 ATTN: SEBASTIEN GARNER MD Please exercise your independent, professional judgment in responding to the clarification form. Clinical indicators are provided on the bottom of this form for your review Please check appropriate box(s) to clarify if the following diagnosis has been ruled in or ruled out: ATN [ ] Ruled in diagnosis [ ] Continue to treat [ ] Resolved [ ] Ruled out diagnosis [ ] Cannot rule out diagnosis [ ] Other diagnosis [ ] Unable to determine For continuity of documentation, please document condition throughout progress notes and discharge summary. Thank You. CLINICAL INDICATORS - SIGNS / SYMPTOMS / LABS Acute kidney injury: This is most likely either hemodynamic mediated due to hypotension and volume depletion related to general anesthesia or ATN from hypoperfusion and hypotension-Documented in Consultation on 01/21 by Axel Hou Hyponatremia-Documented in Consultation on 01/21 by Axel Hou Mildly hypovolemic-Documented in Consultation on 01/21 by Axel Hou Creatinine-1.61-Documented in Laboratory BUN-23--Documented in Laboratory ZGG-75-Kjramnezaf in Laboratory RISK FACTORS Acute kidney injury-Documented in Consultation on 01/21 by Axel Hou Hyponatremia-Documented in Consultation on 01/21 by Axel Hou TREATMENTS Sodium chloride 1000 ml IV-Documented in medication snapshot [employer] Crystal Reports Winform Viewer (This form is maintained as a part of the permanent medical record) 2014 [email or web address]. All Rights Reserved [email or web address] [not provided] [email or web address]
== END 2019-01-25 16:11 | DRG 470 ==
LOC: SJJU 01-20 08:05 → EDSTATUS 01-20 11:15 → SJJU 01-20 15:48 → 2SE 01-23 13:19
PROVIDERS: ADMIT Orthopaedic Surgery; ATTEND Orthopaedic Surgery
PROC: 0SRB0JZ Replacement of Left Hip Joint with Synthetic Substitute, Open Approach (ICD-10-PCS; principal; 2019-01-20)
DX: M16.12 Unilateral primary osteoarthritis, left hip (principal); D62 Acute posthemorrhagic anemia; E87.2 Acidosis; I50.22 Chronic systolic (congestive) heart failure; I42.9 Cardiomyopathy, unspecified; E22.2 Syndrome of inappropriate secretion of antidiuretic hormone; I13.0 Hypertensive heart and chronic kidney disease with heart failure and stage 1 through stage 4 chronic kidney disease, or unspecified chronic kidney disease; N17.9 Acute kidney failure, unspecified; E44.0 Moderate protein-calorie malnutrition; C34.90 Malignant neoplasm of unspecified part of unspecified bronchus or lung; I48.92 Unspecified atrial flutter; J96.10 Chronic respiratory failure, unspecified whether with hypoxia or hypercapnia; I25.10 Atherosclerotic heart disease of native coronary artery without angina pectoris; E83.42 Hypomagnesemia; J44.9 Chronic obstructive pulmonary disease, unspecified; E78.5 Hyperlipidemia, unspecified; Z87.891 Personal history of nicotine dependence; Z88.1 Allergy status to other antibiotic agents; Z88.5 Allergy status to narcotic agent; Z88.0 Allergy status to penicillin; Z90.49 Acquired absence of other specified parts of digestive tract; L29.9 Pruritus, unspecified; I95.9 Hypotension, unspecified; E87.5 Hyperkalemia; N18.2 Chronic kidney disease, stage 2 (mild); Z68.22 Body mass index [BMI] 22.0-22.9, adult; I48.0 Paroxysmal atrial fibrillation; Z99.81 Dependence on supplemental oxygen
CPT/HCPCS: 36415; 36416; 71045; 80048; 80053; 80069; 81001; 82570; 83605; 83735; 83880; 83930; 83935; 84100; 84145; 84156; 84300; 84484; 85027; 87040; 87086; 93005; 93010; 94640; C1713; J0690; J1160; J1200; J1885; J2001; J2405; J2704; J3010; J3475; J3490; J7070; J7620; Q0163; S0028

== ENCOUNTER 2019-02-16 09:55 | Emergency (ER) | payer MEDICARE, BC | END 2019-02-16 11:01 | disposition home or self-care (01) | LOC: ERS 09:55 | DX: L72.9 Follicular cyst of the skin and subcutaneous tissue, unspecified (principal); L53.9 Erythematous condition, unspecified; J44.9 Chronic obstructive pulmonary disease, unspecified; I48.92 Unspecified atrial flutter; I10 Essential (primary) hypertension; Z87.891 Personal history of nicotine dependence | CPT/HCPCS: 99282 ==

== ENCOUNTER 2019-09-24 01:37 | Inpatient (IN) | payer MEDICARE, BC ==
[2019-09-24 02:21] LABS: Hemoglobin 13.2 g/dL (12.0-16.0); Mean Corpuscular HGB CONC 32.4 g/dL (32.0-36.0); Mean Corpuscular Hemoglobin 24.8 pg (27.0-31.0); Mean Corpuscular Volume 76.8 fL (78.0-98.0); Mean Platelet Volume 7.7 fL (7.4-10.4); Platelet Count 579 thou/uL (130-400); RBC Distribution Width 18.2 % (11.5-14.5); Red Blood Cell (RBC) Count 5.32 mill/uL (4.20-5.40); White Blood Cell (WBC) Count 20.2 thou/uL (4.8-10.8)
[2019-09-24 02:34] LABS: Band 12 % (5-11); Eosinophils 2 % (0-10); Lymphocytes 3 % (21-51); MDiff Complete? YES; Monocytes 2 % (0-10); Neutrophil 81 % (42-75); Platelet Morphology Comment Appears Increased
[2019-09-24 02:41] LABS: ALT (SGPT) 18 U/L (8-55); AST (SGOT) 24 U/L (5-34); Albumin 4.1 g/dL (3.4-4.8); Alkaline Phosphatase 122 U/L (40-110); Anion Gap 11 mmol/L (10-20); BUN (Urea Nitrogen) 18 mg/dL (9.8-20.1); Bilirubin, Total 0.5 mg/dL (0.2-1.2); Calc. Creatinine Clearance 0 mL/min (70-130); Calcium 10.4 mg/dL (7.8-10.44); Carbon Dioxide 25 mmol/L (23-31); Chloride 99 mmol/L (98-107); Estimated GFR-MDRD 66; Globulin 3.7 g/dL (2.4-3.5); Glucose 107 mg/dL (83-110); Potassium 3.8 mmol/L (3.5-5.1); Protein, Total 7.8 g/dL (6.0-8.3); Sodium 131 mmol/L (136-145)
[2019-09-24] MEDS ORDERED: Vancomycin 1 GM/200 ML BAG ONE (02:54)
[2019-09-24 03:02] LABS: CKMB 2.1 ng/mL (0-6.6)
[2019-09-24] MEDS ORDERED: Aspirin 325 MG TAB ONE (03:31)
[2019-09-24] MEDS: Aztreonam 1 GM in Sodium Chloride 0.9% 100 ML IVPB SCH ×2 (05:14→05:15)
[2019-09-24] MEDS ORDERED: Acetaminophen 325 MG TAB PO PRN (05:39)
[2019-09-24] MEDS ORDERED: Guaifenesin DM 100-10/5 ML UDCUP PO PRN (05:39)
[2019-09-24] MEDS ORDERED: Acetaminophen 650 MG Suppository PR PRN (05:39)
[2019-09-24] MEDS ORDERED: Calcium Carbonate 500 MG ChewTAB PO PRN (05:39)
--- NOTE | 2019-09-24 06:11 | PDOC.HHP ---
Hospitalist HPI - History of Present Illness dyspnea History of Present Illness: Case of an 83y/o female with pmhx of hypertension, atrial flutter, hx of lung CA and copd on home 02 who comes to hospital due to chills and dyspnea. patient refers she was on her usual state of health until today when she started with progressive sob cough worse sputum production chills and nonquantified fever. she refers her symptoms worsen very quickly and her family called ems and she was brought to hospital for evaluation. here the patient was evaluated and found with sepsis criteria with elevated wbc and increased rr for which hospitalist was called for further evaluation and management. patient kg chest pain palpitations or diaphoresis does refers some nausea and vomiting Hospitalist ROS - Review of Systems All other systems reviewed; all pertinent +/- noted in HPI/Subj Hospitalist History - Past Medical History Source: patient Cardiac: reports: AFIB, HTN Pulmonary: reports: COPD - Past Surgical History Past Surgical History: reports: Cholecystectomy, Hysterectomy, Hernia Repair, Total Hip Replacement - Family History Family History: reports: no pertinent history - Social History Smoking Status: Former smoker Alcohol: reports: Occassional Drugs: reports: none Living Situation: With Family - Exam General Appearance: awake alert Eye: PERRL, anicteric sclera ENT: normocephalic atraumatic, no oropharyngeal lesions Neck: supple, symmetric, no JVD Heart: RRR, no murmur, no gallops Respiratory: rhonchi, tachypneic, wheezes Gastrointestinal: soft, non-tender, non-distended Extremities: no cyanosis, no clubbing, no edema Skin: normal turgor, no lesions, no rashes Neurological: cranial nerve grossly intact, normal sensation to touch Musculoskeletal: normal tone, normal strength, no muscle wasting Psychiatric: normal affect, normal behavior, A&O x 3 Hospitalist Results - Labs Result Diagrams: 09/24/19 02:00 09/24/19 02:00 Lab results: WBC 20.2 thou/uL (4.8-10.8) H 09/24/19 02:00 Hgb 13.2 g/dL (12.0-16.0) 09/24/19 02:00 Hct 40.9 % (36.0-47.0) 09/24/19 02:00 MCV 76.8 fL (78.0-98.0) L 09/24/19 02:00 Plt Count 579 thou/uL (130-400) H 09/24/19 02:00 Band Neuts % (Manual) 12 % (5-11) H 09/24/19 02:00 Sodium 131 mmol/L (136-145) L 09/24/19 02:00 Potassium 3.8 mmol/L (3.5-5.1) 09/24/19 02:00 Chloride 99 mmol/L (98-107) 09/24/19 02:00 Carbon Dioxide 25 mmol/L (23-31) 09/24/19 02:00 BUN 18 mg/dL (9.8-20.1) 09/24/19 02:00 Creatinine 0.82 mg/dL (0.6-1.1) 09/24/19 02:00 Glucose 107 mg/dL (83-110) 09/24/19 02:00 Lactic Acid 1.3 mmol/L (0.5-2.2) 09/24/19 02:00 Calcium 10.4 mg/dL (7.8-10.44) 09/24/19 02:00 Total Bilirubin 0.5 mg/dL (0.2-1.2) 09/24/19 02:00 AST 24 U/L (5-34) 09/24/19 02:00 ALT 18 U/L (8-55) 09/24/19 02:00 Alkaline Phosphatase 122 U/L (40-110) H 09/24/19 02:00 CK-MB (CK-2) 2.1 ng/mL (0-6.6) 09/24/19 02:00 Troponin I 0.141 ng/mL (< 0.028) H 09/24/19 02:00 B-Natriuretic Peptide 170.2 pg/mL (0-100) H 09/24/19 02:00 Serum Total Protein 7.8 g/dL (6.0-8.3) 09/24/19 02:00 Albumin 4.1 g/dL (3.4-4.8) 09/24/19 02:00 - EKG Interpretation EKG: no st ischemic changes - Radiology Interpretation Chest x-ray Status: image reviewed by ky Hospitalist H&P A/P - Problem (1) COPD exacerbation Code(s): J44.1 - CHRONIC OBSTRUCTIVE PULMONARY DISEASE W (ACUTE) EXACERBATION Status: Resolved (2) Pneumonia Code(s): J18.9 - PNEUMONIA, UNSPECIFIED ORGANISM Status: Resolved (3) Atrial flutter Code(s): I48.92 - UNSPECIFIED ATRIAL FLUTTER Status: Acute (4) Elevated troponin Code(s): R74.8 - ABNORMAL LEVELS OF OTHER SERUM ENZYMES Status: Acute (5) Hx of cancer of lung Code(s): Z85.118 - PERSONAL HISTORY OF MALIGNANT NEOPLASM OF BRONCHUS AND LUNG Status: Chronic (6) Hypertension Code(s): I10 - ESSENTIAL (PRIMARY) HYPERTENSION Status: Chronic Qualifiers: Hypertension type: essential hypertension Qualified Code(s): I10 - Essential (primary) hypertension (7) Nausea & vomiting Code(s): R11.2 - NAUSEA WITH VOMITING, UNSPECIFIED Status: Acute (8) Elevated troponin Code(s): R79.89 - OTHER SPECIFIED ABNORMAL FINDINGS OF BLOOD CHEMISTRY Status : Acute - Plan Plan: pneumonia / copd exercerbation - atreonam and vanc started at the ED. patient with multiple drugs allergies. will order mrsa screening, de-escalete therapy as necessary - f/u sputum blood cultures - 02 supplementation with an 02 goal of [id number] - iv steroids - dual nebs -covid negative atrial flutter - continue with eliquis - continue rate control w beta cristiano nausea and vomiting - symptomatic tx prn htn -continue home meds levated troponin - elevated troponin, no chest pain, likely nonstemi type 2 in setting of copd with worseing hypoxia - will send troponins to evaluated trend
[2019-09-24 06:21] LABS: Troponin I 0.707 ng/mL (< 0.028)
[2019-09-24] MEDS ORDERED: Ondansetron ORAL SOLN. 4 MG/5 ML UDCUP PO PRN (06:21)
[2019-09-24] MEDS ORDERED: Ondansetron ODT 4 MG TAB PO PRN (06:37)
[2019-09-24] MEDS: methylPREDNISolone Sod Succ 40 MG VIAL IVP SCH ×3 (07:30→18:29)
--- NOTE | 2019-09-24 08:00 | RAD ---
PORTABLE CHEST 1 VIEW: DATE: 09/24/2019. TIME: 1:30 AM. HISTORY: Shortness of breath. COMPARISON: 01/21/2019. FINDINGS: The heart size is borderline but stable. Chronic changes are again seen bilaterally with small bilat eral pleural effusions. There is a mass-like density in the left hilar/perihilar region which was no t seen on the previous exam. Further evaluation with contrast-enhanced CT scan should be performed. CODE T POS: CARLYN
[2019-09-24] MEDS ORDERED: Aspirin Chewable 81 MG TAB ONE (08:49)
[2019-09-24] MEDS: Sodium Chloride 0.9% 1,000 ML IV SCH (08:50)
[2019-09-24] MEDS: Aspirin 81 mg Enteric Coated Tablet PO SCH ×2 (08:51→22:11)
[2019-09-24] MEDS: Carvedilol 3.125 MG TAB PO SCH ×2 (08:51→18:29)
[2019-09-24] MEDS: Apixaban 2.5 MG TAB PO SCH ×2 (08:51→22:11)
[2019-09-24 08:55] LABS: Troponin I 0.641 ng/mL (< 0.028)
[2019-09-24] MEDS ORDERED: Vancomycin 1 GM in Premix Bag 1 BAG IVPB SCH (09:00)
[2019-09-24 11:20] VITALS: BMI 23.4
[2019-09-24 12:48] LABS: Troponin I 0.656 ng/mL (< 0.028)
[2019-09-24] MEDS: Atorvastatin Calcium 10 MG TAB PO SCH (22:11)
--- NOTE | 2019-09-24 23:09 | CON ---
DATE OF CONSULTATION: HISTORY OF PRESENT ILLNESS: Rosalba Fenton is an 83-year-old white female, who I initially saw in June 2008 for evaluation of dizziness and nausea when she would work in the heat. Echo revealed ejection fraction of 60% to 65% with mild mitral regurgitation, moderate tricuspid regurgitation. It was felt that no further cardiac evaluation was warranted at that time. In August 2012, she had shortness of breath and chest pain and was flown from [place] via helicopter to [place]. She was evaluated by Dr. Vasquez and was found to have diffuse ST-segment elevation, but no reciprocal changes. She underwent emergent cardiac catheterization. She had a 50%-60% distal right coronary artery stenosis, but otherwise unremarkable coronary arteries. Left ventriculogram revealed ejection fraction of 10% to 15% and there was mid to distal anterior wall, apex mid to distal inferior wall akinesis, and hypercontractile segment within the basal segments only. 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 She was placed on appropriate medications - carvedilol and lisinopril. She went to residential at [place], but never returned to Dr. Vasquez for followup. She apparently was followed by Dr. Jones. He told her that her heart strength was excellent and apparently she had total recovery from the Takotsubo. She denies ever having any recurrent chest discomfort after that episode of 2012. She was admitted in March 2018, with cough productive of green sputum and then brown sputum. She had been in [facility] for a few days prior to that was discharged on erythromycin. She then went to [place] ER and was transferred here for further care. She was treated with the antibiotics, steroids, and oxygen with improvement in her symptoms. She has continued to have problems with shortness of breath ever since that hospitalization. There was some concern regarding progression of coronary artery disease. In March 2018, she underwent cardiac PET scan, which was normal without evidence of ischemia or fixed defect. Ejection fraction was 51%. It is of note that echocardiogram when she was in the hospital in March 2018 revealed ejection fraction of 35% to 40% with moderate left atrial enlargement, hypokinesis of the septum, mild mitral regurgitation, mitral annular calcification, and aortic valve sclerosis. She was again admitted in May 2018, with worsening shortness of breath, feeling heart beating very rapidly, which was something new for her. She came to the hospital, found to be in atrial fibrillation with fast ventricular response. She was placed on a Cardizem drip, which helped to control the rate. She was seen by Electrophysiology and ultimately underwent electrical cardioversion and was discharged on Cardizem and Eliquis. She then was readmitted in late June 2018. She was loaded with Tikosyn and did undergo cardioversion at the end of her ablation. She maintained sinus rhythm for approximately 24 hours and converted to atrial fibrillation. She then underwent another repeat cardioversion the following day, but again did not maintain sinus rhythm. Tikosyn was discontinued. She was placed on Cartia for rate control. She was again admitted in December 2018. She also had recurrence of atrial fibrillation after left hip surgery in January 2019. She was last seen in the office in June 2019. She was in sinus rhythm at that time and her shortness of breath appeared to be at her baseline. She now is admitted with increased shortness of breath. She states she was at her usual baseline until last night when she became profoundly short of breath with cough productive of some bloody sputum. She had a little elevated white blood cell count. She denies any chest pain. PAST MEDICAL HISTORY: Hypercholesterolemia, COPD, lung cancer, Takotsubo cardiomyopathy, and paroxysmal atrial fibrillation. MEDICATIONS: 1. Eliquis 2.5 mg b.i.d. 2. Aspirin 81 b.i.d. 3. Atorvastatin 10 mg at bedtime. 4. Carvedilol 3.125 b.i.d. 5. Diltiazem 180 daily. 6. Furosemide 20 daily. 7. Atarax 25 mg at bedtime. 8. DuoNebs q.4 hours. 9. Losartan 100 mg daily. 10. Potassium chloride 20 mEq b.i.d. 11. Tramadol 50 p.r.n. ALLERGIES: ERYTHROMYCIN, MORPHINE, OXYCONTIN, PENICILLIN, HYDROCODONE, AND STEROIDS. PAST SURGICAL HISTORY: Cholecystectomy, left lower lobectomy for lung cancer, and left hip replacement. SOCIAL HISTORY: She smoked in the past. She occasionally drinks. FAMILY HISTORY: Mother and father of myocardial infarction in their 70s. PHYSICAL EXAMINATION: VITAL SIGNS: Blood pressure 132/64 and pulse 79, sinus rhythm. HEENT: PERRL. NECK: Supple. CHEST: Reveals expiratory wheezing bilaterally. CARDIOVASCULAR: S1 and S2 normal without any S3, S4, or murmurs. ABDOMEN: Normal bowel sounds without tenderness or organomegaly. EXTREMITIES: Revealed no clubbing, cyanosis, or edema. NEUROLOGIC: Grossly intact. LABORATORY DATA: EKG reveals normal sinus rhythm with nonspecific ST-segment changes. Hemoglobin 13.2, hematocrit 40.9, white count 20,200, and platelets 579,000. Troponin I is up to 0.707 and BNP 170.2. Sodium 131, potassium 3.8, chloride 99, carbon dioxide 25, BUN 18, and creatinine 0.82. IMPRESSION: 1. Chronic obstructive pulmonary disease exacerbation. 2. Pneumonia. 3. History of paroxysmal atrial fibrillation status post ablation and several cardioversions. 4. Normal cardiac PET scan in March 2018. 5. History of Takotsubo cardiomyopathy in August 2012, with ejection fraction of 10% to 15% at that time. 6. Most recent echo revealed ejection fraction of 35%-40%. 7. Hypertension. 8. Hyperlipidemia. 9. History of lung cancer status post left lower lobectomy. 10. Severe chronic obstructive pulmonary disease, former smoker 11. Non-ST segment elevation myocardial infarction type 2. PLAN: At the present time, I do not feel any specific cardiac evaluation is warranted. She has been treated for her COPD exacerbation. We will continue to follow the patient with you. Job ID: [id number] [facility]
[2019-09-25 00:32] LABS: Platelet Count 491 thou/uL (130-400)
[2019-09-25] MEDS: Sodium Chloride 0.9% 1,000 ML IV SCH (01:00)
[2019-09-25] MEDS: methylPREDNISolone Sod Succ 40 MG VIAL IVP SCH ×5 (01:00→23:43)
[2019-09-25] MEDS ORDERED: Vancomycin 1 GM in Premix Bag 1 BAG IVPB SCH (03:00)
[2019-09-25 05:11] LABS: ALT (SGPT) 22 U/L (8-55); AST (SGOT) 25 U/L (5-34); Albumin 2.9 g/dL (3.4-4.8); Alkaline Phosphatase 79 U/L (40-110); Anion Gap 8 mmol/L (10-20); BUN (Urea Nitrogen) 16 mg/dL (9.8-20.1); Bilirubin, Total 0.3 mg/dL (0.2-1.2); Calc. Creatinine Clearance 56 mL/min (70-130); Calcium 8.7 mg/dL (7.8-10.44); Carbon Dioxide 22 mmol/L (23-31); Chloride 104 mmol/L (98-107); Estimated GFR-MDRD 87; Globulin 2.9 g/dL (2.4-3.5); Glucose 151 mg/dL (83-110); Potassium 3.9 mmol/L (3.5-5.1); Protein, Total 5.8 g/dL (6.0-8.3); Sodium 130 mmol/L (136-145)
[2019-09-25 05:50] LABS: Band 18 % (5-11); Lymphocytes 1 % (21-51); MDiff Complete? YES; Mean Corpuscular HGB CONC 30.4 g/dL (32.0-36.0); Mean Corpuscular Hemoglobin 23.9 pg (27.0-31.0); Mean Corpuscular Volume 78.7 fL (78.0-98.0); Mean Platelet Volume 7.6 fL (7.4-10.4); Neutrophil 81 % (42-75); Platelet Count 494 thou/uL (130-400); RBC Distribution Width 18.5 % (11.5-14.5); Red Blood Cell (RBC) Count 4.58 mill/uL (4.20-5.40)
[2019-09-25] MEDS: Apixaban 2.5 MG TAB PO SCH ×2 (08:58→20:29)
[2019-09-25] MEDS: Aspirin 81 mg Enteric Coated Tablet PO SCH ×2 (08:58→20:29)
[2019-09-25] MEDS: Carvedilol 3.125 MG TAB PO SCH ×2 (08:58→17:18)
[2019-09-25] MEDS ORDERED: hydrOXYzine 10 MG TAB PO PRN (12:47)
[2019-09-25] MEDS ORDERED: traMADol HCl 50 MG TAB PO PRN (12:48)
[2019-09-25] MEDS ORDERED: Aztreonam 1 GM in Sodium Chloride 0.9% 100 ML IVPB SCH (14:00)
--- NOTE | 2019-09-25 15:47 | PDOC.HOSPP ---
- Subjective Encounter Date: 09/25/19 Encounter Time: 11:45 Subjective: Patient seen and examined for Pneumonia/COPD Exacerbation. Mild dry cough. SOB improving. No new complaints. No overnight events - Objective Vital Signs & Weight: Vital Signs (12 hours) Temp Pulse Resp BP Pulse Ox 09/25/19 12:30 80 16 09/25/19 11:32 98.0 F 94 18 136/73 97 09/25/19 07:20 98.0 F 80 16 153/83 H 99 09/25/19 07:00 96 17 09/25/19 04:30 98.2 F 71 20 122/58 L 95 Weight Weight 124 lb 12.8 oz I&O: 09/24/19 09/25/19 09/26/19 06:59 06:59 06:59 Intake Total 300 Output Total 400 Balance -100 Result Diagrams: 09/25/19 04:32 09/25/19 04:32 Radiology Reviewed by me: Yes (CXR - reviewed) EKG Reviewed by me: Yes (Tele SR) Hospitalist ROS - Review of Systems Constitutional: reports: weakness. denies: fever, chills, sweats, malaise, other Gastrointestinal: denies: nausea, vomiting, abdominal pain, diarrhea, constipation, melena, hematochezia, other - Medication Medications: Active Medications Generic Name Dose Route Start Last Admin Trade Name Freq PRN Reason Stop Dose Admin Albuterol/Ipratropium 3 ml 09/24/19 07:00 09/25/19 12:30 Duoneb NEB 3 ml [id number] DESIREE Administration Apixaban 2.5 mg 09/24/19 09:00 09/25/19 08:58 Eliquis PO 2.5 mg BID DESIREE Administration Aspirin 81 mg 09/24/19 09:00 09/25/19 08:58 Ecotrin PO 81 mg BID DESIREE Administration Atorvastatin Calcium 10 mg 09/24/19 21:00 09/24/19 22:11 Lipitor PO 10 mg HS DESIREE Administration Carvedilol 3.125 mg 09/24/19 08:00 09/25/19 08:58 Coreg PO 3.125 mg BID-WM DESIREE Administration Hydroxyzine HCl 10 mg 09/25/19 12:47 09/25/19 13:01 Atarax PO 10 mg TID PRN Administration Itching Vancomycin HCl 1 gm/ Device 200 mls @ 200 mls/hr 09/25/19 03:00 09/25/19 03: 00 IVPB 200 mls 0300 DESIREE Administration Aztreonam 1 gm/ Sodium 100 mls @ 100 mls/hr 09/25/19 14:00 09/25/19 14:55 Chloride IVPB 100 mls Q12H DESIREE Administration Methylprednisolone Sodium Succinate 40 mg 09/24/19 06:00 09/25/19 11:31 Solu-Medrol IVP 40 mg Q6HR DESIREE Administration Sodium Chloride 10 ml 09/24/19 09:00 09/25/19 08:58 Flush - Normal Saline IVF 10 ml Q12HR DESIREE Administration - Exam General Appearance: ill appearing Heart: RRR, no gallops, no rubs, normal peripheral pulses Respiratory: rales, rhonchi, tachypneic Respiratory - other findings: accessory muscle use Gastrointestinal: soft, non-tender, non-distended, normal bowel sounds Extremities: no cyanosis, no clubbing Neurological: no new deficit Psychiatric: normal affect, A&O x 3 Hosp A/P - Plan Acute hypoxic resp failure - due to COPD Exacerbation with Pneumonia - POA COPD Exacerbation Pneumonia - ?gram negative Chronic systolic HF - EF 35-40% Type 2 TN Par Afib - on anticoag HTN HLD h/o Lung CA PLAN: Cont IV Vancomycin Cont IV Azactam WBC worsening Cont IV Steroids Cont Nebs AM labs Restart PO Cardizem at low dose AM labs Cont other meds as above
--- NOTE | 2019-09-25 16:50 | CON ---
DATE OF CONSULTATION: 09/25/2019 REASON FOR CONSULTATION: Pneumonia. HISTORY OF PRESENT ILLNESS: An 83-year-old who has a history of COPD associated with smoking, hypertension, atrial fibrillation, and the day before admission, developed worsening dyspnea with cough and fever. She wears oxygen intermittently at home for her COPD and uses 2 different inhalers and she was well until the night before admission. She activated EMS who brought her to the emergency room. On arrival, BP was 160/76, pulse 83, respirations 22, O2 saturation 98 on 2 L, and temperature was 103. The exam showed tachypnea, bilateral expiratory wheezing, no crackles, diminished breath sounds. Remainder of the exam was not particularly remarkable. Other findings with a white cell count 20.2, hemoglobin 13, platelets 579, and 12% bands. Sodium 131 and creatinine 0.82. Transaminases normal. Troponin 0.141. BNP was 170. Albumin 4.1. Had a rapid COVID test, which was negative. Initial imaging on 09/23 with borderline heart size, masslike density left perihilar region, which was not seen in the prior exam. Currently, Ms. eFnton is awake, she is alert, and she is still having some dyspnea. She denies any headaches. No visual symptoms. No sore throat, odynophagia, or dysphagia. Not coughing much. No chest pain. No abdominal pain. No diarrhea. No genitourinary symptoms. MEDICAL HISTORY: 1. COPD. 2. Hypertension. 3. Atrial fibrillation. 4. Lung malignancy, in remission since 2013 after surgical intervention. PAST SURGICAL HISTORY: 1. Cholecystectomy. 2. Hernia repair. 3. Lung resection, partial. SOCIAL HISTORY: Retired. Former smoker, quit many years ago. ALLERGY HISTORY: Amoxicillin, codeine, erythromycin, and morphine. PHYSICAL EXAMINATION: VITAL SIGNS: She has been afebrile since admission, BP 140/70, pulse 84, respirations 16, and O2 saturation 95, she is on room air, and she is still with labored breathing, but that was right after she went to the restroom. She still has audible wheezing even without a stethoscope. SKIN: Peripheral IV access. She is voiding in the diaper. No lymphadenopathy. HEENT: Ocular movements conjugate. Oral cavity with no chicken ranch teeth. NECK: Supple. No jugular vein distention. LUNGS: Diminished breath sounds. Faint inspiratory crackles in the left base. Faint wheezing diffusely scattered through right and left hemithorax. HEART: S1 and S2. Regular rate. No S3. ABDOMEN: Soft, not distended or tender. No ascites. No bladder distention. EXTREMITIES: No joint inflammatory activity. No edema. Pulses are 1+ in dorsalis pedis. Plantar responses are flexor. NEUROLOGIC: Awake, alert, and oriented, follows commands. Speech is normal. She is able to speak in full sentences. LABORATORY STUDIES: White cell count now is up to 35, hemoglobin 11, platelets 494, and 18% bands. Latest chemistry with sodium 130 and creatinine 0.65. Liver profile normal. Microbiology with negative blood cultures. ASSESSMENT: 1. Severe obstructive lung disease and prior lung malignancy, which was reportedly resected. She had a PET scan done on 02/09/2018, which showed no evidence of metastatic disease and a 5-mm left upper lobe lung nodule and recommended followup with CT scans. I do not see any CT scan here in the record and [facility]'s record. 2. Fever with dyspnea and abnormal chest x-ray. DISCUSSION: The differential diagnosis includes a viral versus bacterial pneumonia. The LATONYA-CoV rapid RNA PCR was not detected on 09/23. We will go ahead and order a CT of her chest to evaluate in more detail that possible mass like lesion in the hilum. Switch her to Rocephin and doxycycline. Check Streptococcus pneumoniae antigen in urine as well as Legionella antigen. Regarding the COVID possibility, we have intermediate pretest likelihood possibility and I think her posttest likelihood is probably around 10%, which is pretty low. We will see what the CT shows and go from there, but I think it is unlikely that she has COVID infection. Job ID: [id number]
[2019-09-25] MEDS ORDERED: Azithromycin 500 MG in Sodium Chloride 0.9% 250 ML 250 ML IVPB SCH (17:00)
[2019-09-25] MEDS: cefTRIAXone\\ROCEPHIN 2 GM in Sodium Chloride 0.9% 100 ML IVPB SCH (17:18)
[2019-09-25] MEDS: Calcium Carbonate 600 MG + Vit D TAB PO SCH (17:18)
--- NOTE | 2019-09-25 17:40 | CT ---
CT CHEST WITHOUT CONTRAST CLINICAL INDICATION: Follow-up hilar mass. History of lung cancer. COMPARISON: Chest x-ray on 09/24/2019 and PET/CT exam on 02/06/2018. FINDINGS: Aorta: Lack of intravenous contrast limits evaluation of the vascular structures, but dense vascular calcifications are seen in the thoracic aorta as well as involving the coronary arteries. Lungs: Masslike opacity is present in the left hilar region which corresponds to chest x-ray abnormal ity. This was not seen on PET/CT exam. This is worrisome for a neoplastic process but is difficult to further evaluate without IV contrast. Adjacent interstitial densities are seen in a perihilar loca tion which may be related to lymphangitic spread of tumor or secondary to postobstructive pneumonitis. Soft tissue masslike density posterior right lung base with associated calcifications is again seen and noted on prior PET exam. Additional pleural-based calcifications are also seen at the right lung base with linear densities present. These findings are likely related to chronic lung changes and probable areas of scarring and/or chronic atelectasis. Similar linear densities are again seen in the region of the right middle lobe and right upper lobe suggesting chronic lung change s as well. There is mild increased interstitial densities in the medial right upper lobe. Calcified pleural-based plaques are seen on the right and to a lesser extent on the left. Mediastinum: Lack of intravenous contrast limits evaluation for lymphadenopathy, but no definite enla rged lymph nodes are seen. Calcified mediastinal lymph nodes are seen. Thyroid gland: There are hypodense nodules again seen in each lobe of the thyroid gland with calcific ations present. This is similar to prior PET/CT exam. Osseous structures: Degenerative changes are seen in the spine. No suspicious lytic or sclerotic osse ous lesions are seen. S-shaped scoliotic curvature of thoracolumbar spine is present. Chest wall: No abnormality visualized. Upper abdomen: Calcified granulomata are seen in the liver. There is a subcentimeter increased densit y lesion superior pole of each kidney which is difficult to further characterize. IMPRESSION: 1. Masslike density seen in the left hilar region. IV contrast was not utilized for more adequate pratima luation. While this could be attributable to infectious process, neoplastic process is diagnosis of exclusion. Adjacent perihilar interstitial densities are seen which may be related to postobstructive pneumonitis. Lymphangitic spread of tumor would be difficult to entirely exclude. 2. Interstitial densities medial right upper lobe anteriorly which could be related to mild chronic l angela changes or area of pneumonitis. 3. Additional chronic findings are as described above and are overall unchanged compared to study in 2018.
[2019-09-25 20:11] LABS: Legionella Urinary Ag Negative (Negative); Strep pneumo Urine Ag NEGATIVE (NEGATIVE)
[2019-09-25] MEDS: Atorvastatin Calcium 10 MG TAB PO SCH (20:29)
[2019-09-25] MEDS: guaiFENesin ER 600 MG TAB PO SCH (20:29)
[2019-09-25] MEDS: Doxycycline 100 MG CAP PO SCH (20:29)
[2019-09-26] MEDS: methylPREDNISolone Sod Succ 40 MG VIAL IVP SCH ×2 (05:15→11:27)
[2019-09-26] MEDS: guaiFENesin ER 600 MG TAB PO SCH ×2 (08:23→20:55)
[2019-09-26] MEDS: Carvedilol 3.125 MG TAB PO SCH ×2 (08:23→17:44)
[2019-09-26] MEDS: Doxycycline 100 MG CAP PO SCH ×2 (08:23→20:55)
[2019-09-26] MEDS: Apixaban 2.5 MG TAB PO SCH ×2 (08:23→20:55)
[2019-09-26] MEDS: Multivit, Therapeutic 1 TAB PO SCH (08:23)
[2019-09-26] MEDS: Calcium Carbonate 600 MG + Vit D TAB PO SCH ×2 (08:23→17:44)
[2019-09-26] MEDS: Aspirin 81 mg Enteric Coated Tablet PO SCH ×2 (08:23→20:55)
[2019-09-26 09:50] LABS: Magnesium 1.8 mg/dL (1.6-2.6)
[2019-09-26 09:52] LABS: Phosphorus 1.9 mg/dL (2.3-4.7)
[2019-09-26 10:01] LABS: Hemoglobin 11.6 g/dL (12.0-16.0); Mean Corpuscular HGB CONC 29.7 g/dL (32.0-36.0); Mean Corpuscular Hemoglobin 23.3 pg (27.0-31.0); Mean Corpuscular Volume 78.5 fL (78.0-98.0); Mean Platelet Volume 7.8 fL (7.4-10.4); Platelet Count 601 thou/uL (130-400); RBC Distribution Width 18.9 % (11.5-14.5); Red Blood Cell (RBC) Count 4.96 mill/uL (4.20-5.40)
[2019-09-26 10:02] LABS: ALT (SGPT) 20 U/L (8-55); AST (SGOT) 18 U/L (5-34); Albumin 3.4 g/dL (3.4-4.8); Alkaline Phosphatase 80 U/L (40-110); Anion Gap 11 mmol/L (10-20); BUN (Urea Nitrogen) 26 mg/dL (9.8-20.1); Bilirubin, Total 0.2 mg/dL (0.2-1.2); Calc. Creatinine Clearance 48 mL/min (70-130); Calcium 10.5 mg/dL (7.8-10.44); Carbon Dioxide 22 mmol/L (23-31); Chloride 103 mmol/L (98-107); Estimated GFR-MDRD 68; Globulin 3.2 g/dL (2.4-3.5); Glucose 174 mg/dL (83-110); Potassium 4.3 mmol/L (3.5-5.1); Protein, Total 6.6 g/dL (6.0-8.3); Sodium 132 mmol/L (136-145)
[2019-09-26 10:29] LABS: #Basophils 0.2 thou/uL (0.0-0.2); #Lymphocytes 0.9 thou/uL (1.20-3.40); #Monocytes 0.4 thou/uL (0.11-0.59); #Neutrophils 17.6 thou/uL (1.40-6.50); %Basophils 0.8 % (0.0-1.0); %Eosinophils 0.1 % (0.0-10.0); %Lymphocytes 4.8 % (21.0-51.0); %Neutrophils 92.3 % (42.0-75.0); Anisocytosis SLIGHT = 6-15 cells (100X) (0-5/hpf); Hypochromia SLIGHT = 6-15 cells (100X) (0-5/hpf); MDiff Complete? YES; Target Cells SLIGHT = 2-5 cells (100X) (0-1/hpf)
[2019-09-26] MEDS ORDERED: Magnesium 2 GM/50 ML 2 GM in Premix Bag 1 BAG IVPB SCH (10:45)
[2019-09-26] MEDS: PHOS-NAK 1 PKT PACK PO SCH ×2 (11:27→17:44)
--- NOTE | 2019-09-26 12:19 | PDOC.HOSPP ---
- Subjective Encounter Date: 09/26/19 Encounter Time: 11:30 Subjective: Patient seen and examined for resp failure. SOB improving. Mild dry cough. No new complaints. No overnight events - Objective Vital Signs & Weight: Vital Signs (12 hours) Temp Pulse Resp BP Pulse Ox 09/26/19 11:22 97.5 F L 60 16 146/72 H 97 09/26/19 07:13 97.4 F L 63 14 153/70 H 97 09/26/19 07:01 78 16 09/26/19 04:16 98.0 F 78 16 161/75 H 96 Weight Weight 130 lb 3.2 oz I&O: 09/25/19 09/26/19 09/27/19 06:59 06:59 06:59 Intake Total 300 120 Output Total 400 Balance -100 120 Result Diagrams: 09/26/19 09:23 09/26/19 09:23 Additional Labs: Microbiology 09/24/19 02:00 Venous blood - Right Hand Blood Culture - Preliminary Specimen has been received and culture in progress. No Growth to date. 09/24/19 02:00 Venous blood - Left Arm Blood Culture - Preliminary Specimen has been received and culture in progress. No Growth to date. Laboratory Tests 01/23/19 09/24/19 09/24/19 05:26 02:50 11:56 Phosphorus Magnesium 1.6 Troponin I 0.656 H* Ur L.pneumophila Ag SARS-CoV-2 Rap RNA(RT-PCR) Not Detected Ur Strep pneumoniae Ag 09/25/19 09/25/19 09/26/19 19:30 19:30 09:23 Phosphorus 1.9 L Magnesium 1.8 Troponin I Ur L.pneumophila Ag Negative SARS-CoV-2 Rap RNA(RT-PCR) Ur Strep pneumoniae Ag NEGATIVE EKG Reviewed by me: Yes (Tele SR) Hospitalist ROS - Review of Systems Constitutional: reports: weakness. denies: fever, chills, sweats, malaise, other Gastrointestinal: denies: nausea, vomiting, abdominal pain, diarrhea, constipation, melena, hematochezia, other - Medication Medications: Active Medications Generic Name Dose Route Start Last Admin Trade Name Freq PRN Reason Stop Dose Admin Albuterol/Ipratropium 3 ml 09/24/19 07:00 09/26/19 07:01 Duoneb NEB 3 ml [id number] DESIREE Administration Apixaban 2.5 mg 09/24/19 09:00 09/26/19 08:23 Eliquis PO 2.5 mg BID DESIREE Administration Aspirin 81 mg 09/24/19 09:00 09/26/19 08:23 Ecotrin PO 81 mg BID DESIREE Administration Atorvastatin Calcium 10 mg 09/24/19 21:00 09/25/19 20:29 Lipitor PO 10 mg HS DESIREE Administration Calcium/Vitamin D 1 tab 09/25/19 17:00 09/26/19 08:23 Caltrate 600 + Vit D PO 1 tab BID-WM DESIREE Administration Carvedilol 3.125 mg 09/24/19 08:00 09/26/19 08:23 Coreg PO 3.125 mg BID-WM DESIREE Administration Diltiazem HCl 30 mg 09/25/19 17:00 09/26/19 11:27 Cardizem PO 30 mg ACHS DESIREE Administration Doxycycline Hyclate 100 mg 09/25/19 21:00 09/26/19 08:23 Vibramycin PO 100 mg BID DESIREE Administration Guaifenesin 600 mg 09/25/19 21:00 09/26/19 08:23 Mucinex PO 600 mg Q12HR DESIREE Administration Hydroxyzine HCl 10 mg 09/25/19 12:47 09/25/19 13:01 Atarax PO 10 mg TID PRN Administration Itching Ceftriaxone Sodium 2 gm/ 100 mls @ 200 mls/hr 09/25/19 18:00 09/25/19 17:18 Sodium Chloride IVPB 100 mls Q24HR DESIREE Administration Magnesium Sulfate 2 gm/ Device 50 mls @ 50 mls/hr 09/26/19 10:45 09/26/19 11: 26 IVPB 09/26/19 12:45 50 mls NOW DESIREE Administration Methylprednisolone Sodium Succinate 40 mg 09/24/19 06:00 09/26/19 11:27 Solu-Medrol IVP 09/26/19 23:59 40 mg Q6HR DESIREE Administration Miscellaneous Medication 1 pkt 09/26/19 12:00 09/26/19 11:27 Phos-Nak PO 09/26/19 17:01 1 pkt TID-WM DESIREE Administration Multivitamins 1 tab 09/26/19 09:00 09/26/19 08:23 Theragran PO 1 tab DAILY DESIREE Administration Pantoprazole Sodium 40 mg 09/25/19 21:00 09/25/19 20:29 Protonix PO 40 mg HS DESIREE Administration Sodium Chloride 10 ml 09/24/19 09:00 09/26/19 08:23 Flush - Normal Saline IVF 10 ml Q12HR DESIREE Administration - Exam General Appearance: NAD Heart: RRR, no gallops Respiratory: no wheezes, no rales, rhonchi, wheezes Gastrointestinal: soft Extremities: no cyanosis, no clubbing Neurological: no new deficit Hosp A/P - Plan PT/OT, respiratory therapy, DVT proph w/SCDs Acute on chronic hypoxic resp failure - due to COPD Exacerbation with Pneumonia - POA COPD Exacerbation Pneumonia - ?gram negative Hypomagnesemia/Hypophosphatemia Chronic systolic HF - EF 35-40% Type 2 [place] Par Afib - on anticoag HTN HLD h/o Lung CA PLAN: Cont IV Ceftriaxone with PO Doxycycline Replace electrolytes Change IV Steroids to PO Restart Lasix with low dose Losartan in AM Change PO Cardizem 30 ACHS to home dose Cont Nebs AM labs Cont other meds as above
[2019-09-26] MEDS: predniSONE 20 MG TAB PO SCH (17:44)
[2019-09-26] MEDS: cefTRIAXone\\ROCEPHIN 2 GM in Sodium Chloride 0.9% 100 ML IVPB SCH (17:44)
[2019-09-26] MEDS: Atorvastatin Calcium 10 MG TAB PO SCH (20:55)
[2019-09-27 03:42] LABS: #Lymphocytes 1.1 thou/uL (1.20-3.40); #Monocytes 0.6 thou/uL (0.11-0.59); %Basophils 0.2 % (0.0-1.0); %Eosinophils 0.1 % (0.0-10.0); %Lymphocytes 8.6 % (21.0-51.0); %Monocytes 4.4 % (0.0-10.0); %Neutrophils 86.7 % (42.0-75.0); Hemoglobin 11.1 g/dL (12.0-16.0); Mean Corpuscular HGB CONC 31.3 g/dL (32.0-36.0); Mean Corpuscular Hemoglobin 24.4 pg (27.0-31.0); Mean Platelet Volume 7.4 fL (7.4-10.4); Platelet Count 474 thou/uL (130-400); RBC Distribution Width 18.4 % (11.5-14.5); Red Blood Cell (RBC) Count 4.56 mill/uL (4.20-5.40); White Blood Cell (WBC) Count 12.7 thou/uL (4.8-10.8)
[2019-09-27 04:02] LABS: Anion Gap 11 mmol/L (10-20); BUN (Urea Nitrogen) 28 mg/dL (9.8-20.1); Calc. Creatinine Clearance 53 mL/min (70-130); Carbon Dioxide 21 mmol/L (23-31); Chloride 103 mmol/L (98-107); Estimated GFR-MDRD 76; Glucose 108 mg/dL (83-110); Phosphorus 2.3 mg/dL (2.3-4.7); Potassium 4.5 mmol/L (3.5-5.1); Sodium 130 mmol/L (136-145)
[2019-09-27] MEDS: Carvedilol 3.125 MG TAB PO SCH (09:03)
[2019-09-27] MEDS: Calcium Carbonate 600 MG + Vit D TAB PO SCH ×2 (09:03→17:19)
[2019-09-27] MEDS: Aspirin 81 mg Enteric Coated Tablet PO SCH ×2 (09:03→21:18)
[2019-09-27] MEDS: predniSONE 20 MG TAB PO SCH ×2 (09:03→17:19)
[2019-09-27] MEDS: Apixaban 2.5 MG TAB PO SCH ×2 (09:03→21:18)
[2019-09-27] MEDS: Saccharomyces boulardii 250 MG CAP PO SCH (09:04)
[2019-09-27] MEDS: guaiFENesin ER 600 MG TAB PO SCH ×2 (09:04→21:18)
[2019-09-27] MEDS: Multivit, Therapeutic 1 TAB PO SCH (09:04)
[2019-09-27] MEDS: Losartan 25 MG TAB PO SCH (09:04)
[2019-09-27] MEDS: Furosemide 20 MG TAB PO SCH (09:04)
[2019-09-27] MEDS: Doxycycline 100 MG CAP PO SCH ×2 (09:04→21:17)
--- NOTE | 2019-09-27 10:44 | PDOC.HOSPP ---
- Subjective Encounter Date: 09/27/19 Encounter Time: 10:15 Subjective: Patient seen and examined for resp failure. Intermittent coughing spells. Clear sputum. No fever. SOB improving. No other complaints. No overnight events - Objective Vital Signs & Weight: Vital Signs (12 hours) Temp Pulse Resp BP Pulse Ox 09/27/19 07:25 69 16 09/27/19 03:45 99 F 60 18 135/66 99 09/27/19 03:16 96 09/26/19 23:41 16 96 Weight Weight 133 lb 14.4 oz I&O: 09/26/19 09/27/19 09/28/19 06:59 06:59 06:59 Intake Total 120 1520 Balance 120 1520 Result Diagrams: 09/27/19 03:33 09/27/19 03:33 EKG Reviewed by me: Yes (Tele SB) Hospitalist ROS - Review of Systems Cardiovascular: denies: chest pain, palpitations, orthopnea, paroxysmal noc. dyspnea, edema, light headedness, other Gastrointestinal: denies: nausea, vomiting, abdominal pain, diarrhea, constipation, melena, hematochezia, other - Medication Medications: Active Medications Generic Name Dose Route Start Last Admin Trade Name Freq PRN Reason Stop Dose Admin Albuterol/Ipratropium 3 ml 09/24/19 07:00 09/27/19 07:25 Duoneb NEB 3 ml [id number] DESIREE Administration Apixaban 2.5 mg 09/24/19 09:00 09/27/19 09:03 Eliquis PO 2.5 mg BID DESIREE Administration Aspirin 81 mg 09/24/19 09:00 09/27/19 09:03 Ecotrin PO 81 mg BID DESIREE Administration Atorvastatin Calcium 10 mg 09/24/19 21:00 09/26/19 20:55 Lipitor PO 10 mg HS DESIREE Administration Calcium/Vitamin D 1 tab 09/25/19 17:00 09/27/19 09:03 Caltrate 600 + Vit D PO 1 tab BID-WM DESIREE Administration Doxycycline Hyclate 100 mg 09/25/19 21:00 09/27/19 09:04 Vibramycin PO 100 mg BID DESIREE Administration Furosemide 20 mg 09/27/19 09:00 09/27/19 09:04 Lasix PO 20 mg DAILY DESIREE Administration Guaifenesin 600 mg 09/25/19 21:00 09/27/19 09:04 Mucinex PO 600 mg Q12HR DESIREE Administration Hydroxyzine HCl 10 mg 09/25/19 12:47 09/25/19 13:01 Atarax PO 10 mg TID PRN Administration Itching Ceftriaxone Sodium 2 gm/ 100 mls @ 200 mls/hr 09/25/19 18:00 09/26/19 17:44 Sodium Chloride IVPB 100 mls Q24HR DESIREE Administration Losartan Potassium 25 mg 09/27/19 09:00 09/27/19 09:04 Cozaar PO 25 mg DAILY DESIREE Administration Multivitamins 1 tab 09/26/19 09:00 09/27/19 09:04 Theragran PO 1 tab DAILY DESIREE Administration Pantoprazole Sodium 40 mg 09/25/19 21:00 09/26/19 20:55 Protonix PO 40 mg HS DESIREE Administration Prednisone 20 mg 09/26/19 17:00 09/27/19 09:03 Prednisone PO 20 mg BID-WM DESIREE Administration Saccharomyces Boulardii 250 mg 09/27/19 09:00 09/27/19 09:04 Florastor PO 250 mg DAILY EDSIREE Administration Sodium Chloride 10 ml 09/24/19 09:00 09/27/19 09:04 Flush - Normal Saline IVF 10 ml Q12HR DESIREE Administration - Exam General Appearance: NAD Heart: RRR, no gallops Respiratory: no rales, rhonchi, wheezes Gastrointestinal: non-tender, non-distended, no rigidity Extremities: no cyanosis Neurological: no new deficit Hosp A/P - Plan Acute on chronic hypoxic resp failure - due to COPD Exacerbation with Pneumonia COPD Exacerbation Pneumonia - ?gram negative Hypomagnesemia/Hypophosphatemia Chronic systolic HF - EF 35-40% Type 2 [place] Par Afib - on anticoag HTN HLD h/o Lung CA PLAN: WBC improving Cont Atbx - IV Ceftriaxone/Doxycycline Cont PO Prednisone Cont Lasix with low dose Losartan Cardizem dose reduced by Cardio Coreg dced today Cont Nebs AM labs Cont other meds as above CM consulted for portable home O2 - Pt has home O2 (not portable)
[2019-09-27] MEDS: cefTRIAXone\\ROCEPHIN 2 GM in Sodium Chloride 0.9% 100 ML IVPB SCH (17:25)
[2019-09-27] MEDS: Atorvastatin Calcium 10 MG TAB PO SCH (21:18)
[2019-09-28 04:58] LABS: Anion Gap 12 mmol/L (10-20); BUN (Urea Nitrogen) 27 mg/dL (9.8-20.1); Calc. Creatinine Clearance 0 mL/min (70-130); Calcium 10.4 mg/dL (7.8-10.44); Carbon Dioxide 26 mmol/L (23-31); Chloride 97 mmol/L (98-107); Estimated GFR-MDRD 67; Glucose 109 mg/dL (83-110); Potassium 4.8 mmol/L (3.5-5.1); Sodium 130 mmol/L (136-145)
[2019-09-28 05:59] LABS: Band 4 % (5-11); Lymphocytes 18 % (21-51); MDiff Complete? YES; Mean Corpuscular HGB CONC 31.6 g/dL (32.0-36.0); Mean Corpuscular Hemoglobin 24.7 pg (27.0-31.0); Mean Corpuscular Volume 78.3 fL (78.0-98.0); Mean Platelet Volume 7.4 fL (7.4-10.4); Monocytes 8 % (0-10); Myelocyte 2 % (0-0); Neutrophil 68 % (42-75); Platelet Count 579 thou/uL (130-400); Platelet Morphology Comment Appears Increased; RBC Distribution Width 18.2 % (11.5-14.5); Red Blood Cell (RBC) Count 4.86 mill/uL (4.20-5.40); White Blood Cell (WBC) Count 11.4 thou/uL (4.8-10.8)
[2019-09-28] MEDS: predniSONE 20 MG TAB PO SCH ×2 (08:29→17:22)
[2019-09-28] MEDS: Aspirin 81 mg Enteric Coated Tablet PO SCH ×2 (08:29→20:18)
[2019-09-28] MEDS: Apixaban 2.5 MG TAB PO SCH ×2 (08:29→20:18)
[2019-09-28] MEDS: Calcium Carbonate 600 MG + Vit D TAB PO SCH ×2 (08:29→17:22)
[2019-09-28] MEDS: Multivit, Therapeutic 1 TAB PO SCH (08:30)
[2019-09-28] MEDS: Saccharomyces boulardii 250 MG CAP PO SCH (08:30)
[2019-09-28] MEDS: Doxycycline 100 MG CAP PO SCH ×2 (08:30→20:18)
[2019-09-28] MEDS: Furosemide 20 MG TAB PO SCH (08:30)
[2019-09-28] MEDS: guaiFENesin ER 600 MG TAB PO SCH ×2 (08:30→20:18)
[2019-09-28] MEDS: Losartan 25 MG TAB PO SCH (08:31)
--- NOTE | 2019-09-28 10:14 | PDOC.HOSPP ---
- Subjective Encounter Date: 09/28/19 Encounter Time: 10:12 Subjective: alert, cooperative , no sob,cough, fever - Objective Vital Signs & Weight: Vital Signs (12 hours) Temp Pulse Resp BP Pulse Ox 09/28/19 08:25 97.8 F 67 20 136/67 98 09/28/19 07:01 80 16 09/28/19 04:14 98.4 F 57 L 14 155/70 H 98 Weight Weight 133 lb 9.602 oz I&O: 09/27/19 09/28/19 09/29/19 06:59 06:59 06:59 Intake Total 1520 1300 Output Total 250 Balance 1520 1050 Result Diagrams: 09/28/19 04:11 09/28/19 04:11 Hospitalist ROS - Medication Medications: Active Medications Generic Name Dose Route Start Last Admin Trade Name Freq PRN Reason Stop Dose Admin Albuterol/Ipratropium 3 ml 09/24/19 07:00 09/28/19 07:01 Duoneb NEB 3 ml [id number] DESIREE Administration Apixaban 2.5 mg 09/24/19 09:00 09/28/19 08:29 Eliquis PO 2.5 mg BID DESIREE Administration Aspirin 81 mg 09/24/19 09:00 09/28/19 08:29 Ecotrin PO 81 mg BID DESIREE Administration Atorvastatin Calcium 10 mg 09/24/19 21:00 09/27/19 21:18 Lipitor PO 10 mg HS DESIREE Administration Calcium/Vitamin D 1 tab 09/25/19 17:00 09/28/19 08:29 Caltrate 600 + Vit D PO 1 tab BID-WM DESIREE Administration Diltiazem HCl 180 mg 09/28/19 09:00 09/28/19 08:30 Cardizem Cd PO 180 mg DAILY DESIREE Administration Doxycycline Hyclate 100 mg 09/25/19 21:00 09/28/19 08:30 Vibramycin PO 100 mg BID DESIREE Administration Furosemide 20 mg 09/27/19 09:00 09/28/19 08:30 Lasix PO 20 mg DAILY DESIREE Administration Guaifenesin 600 mg 09/25/19 21:00 09/28/19 08:30 Mucinex PO 600 mg Q12HR DESIREE Administration Hydroxyzine HCl 10 mg 09/25/19 12:47 09/25/19 13:01 Atarax PO 10 mg TID PRN Administration Itching Ceftriaxone Sodium 2 gm/ 100 mls @ 200 mls/hr 09/25/19 18:00 09/27/19 17:25 Sodium Chloride IVPB 100 mls Q24HR DESIREE Administration Losartan Potassium 25 mg 09/27/19 09:00 09/28/19 08:31 Cozaar PO 25 mg DAILY DESIREE Administration Multivitamins 1 tab 09/26/19 09:00 09/28/19 08:30 Theragran PO 1 tab DAILY DESIREE Administration Pantoprazole Sodium 40 mg 09/25/19 21:00 09/27/19 21:18 Protonix PO 40 mg HS DESIREE Administration Prednisone 20 mg 09/26/19 17:00 09/28/19 08:29 Prednisone PO 20 mg BID-WM DESIREE Administration Saccharomyces Boulardii 250 mg 09/27/19 09:00 09/28/19 08:30 Florastor PO 250 mg DAILY DESIREE Administration Sodium Chloride 10 ml 09/24/19 09:00 09/28/19 08:31 Flush - Normal Saline IVF 10 ml Q12HR DESIREE Administration - Exam General Appearance: awake alert Neck: no JVD Heart: RRR, no murmur Respiratory: CTAB Gastrointestinal: soft, normal bowel sounds Extremities: no edema Hosp A/P (1) COPD exacerbation Code(s): J44.1 - CHRONIC OBSTRUCTIVE PULMONARY DISEASE W (ACUTE) EXACERBATION Status: Resolved (2) Acute respiratory failure with hypoxia Code(s): J96.01 - ACUTE RESPIRATORY FAILURE WITH HYPOXIA Status: Resolved (3) Elevated troponin Code(s): R79.89 - OTHER SPECIFIED ABNORMAL FINDINGS OF BLOOD CHEMISTRY Status : Acute (4) Atrial fibrillation Code(s): I48.91 - UNSPECIFIED ATRIAL FIBRILLATION Status: Chronic Qualifiers: Atrial fibrillation type: unspecified Qualified Code(s): I48.91 - Unspecified atrial fibrillation (5) Cardiomyopathy Code(s): I42.9 - CARDIOMYOPATHY, UNSPECIFIED Status: Chronic Qualifiers: Cardiomyopathy type: unspecified Qualified Code(s): I42.9 - Cardiomyopathy , unspecified (6) Hx of cancer of lung Code(s): Z85.118 - PERSONAL HISTORY OF MALIGNANT NEOPLASM OF BRONCHUS AND LUNG Status: Chronic - Plan DC iv antibx, home tomorrow if still afebril cont doycyclie, eyc cont cardiac meds at current dose
--- NOTE | 2019-09-28 16:15 | PQF ---
DATE: 09-28-19 ATTN: DR. SHILOH FOWLER Please exercise your independent, professional judgment in responding to the clarification form. Clinical indicators are provided on the bottom of this form for your review Please check appropriate box(s) to clarify if the following diagnosis has been ruled in or ruled out: SEPSIS [ x ] Ruled in diagnosis [ ] Continue to treat [ ] Resolved [ ] Ruled out diagnosis [ ] Other diagnosis [ ] Unable to determine In addition, please specify: Present on Admission (POA): [ x ] Yes [ ] No [ ] Unable to determine For continuity of documentation, please document condition throughout progress notes and discharge summary. Thank You. CLINICAL INDICATORS - SIGNS / SYMPTOMS / LABS / RESULTS AND LOCATION IN MR: H&P 09-24-19: HERE THE PATIENT WAS EVALUATED AND FOUND WITH SEPSIS CRITERIA WITH ELEVATED WBC AND INCREASED RR FOR WHICH HOSPITALIST WAS CALLED FOR FURTHER EVALUATION AND MANAGEMENT. H&P: 09-24-19: RESOLVED COPD EXACERBATION, RESOLVED PNEUMONIA, ACUTE A FLUTTER, ACUTE ELEVATED TROP, HX OF LUNG CA WBC: 09-24-19: 20.2 09-25-19: 35.0 09-26-19: 19.0 09-27-19: 12.7 09-28-19: 11.4 LACTIC ACID: 09-24-19: 12 09-25-19: 18 09-28-19: 4 TEMP: ER: 103.0 RISK FACTORS / RESULTS AND LOCATION IN MR: H&P: 09-24-19: RESOLVED COPD EXACERBATION, RESOLVED PNEUMONIA, ACUTE A FLUTTER, ACUTE ELEVATED TROP, HX OF LUNG CA TREATMENTS / RESULTS AND LOCATION IN MR: MAR: 09-25-19: ROCEPHIN IV , DUONEBS, VIBRAMYCIN PO, MUCINEX PO (This form is maintained as a part of the permanent medical record) 2014 [employer]. All Rights Reserved [email or web address]
[2019-09-28] MEDS: cefTRIAXone\\ROCEPHIN 2 GM in Sodium Chloride 0.9% 100 ML IVPB SCH (17:22)
--- NOTE | 2019-09-28 18:30 | PRG ---
DATE OF SERVICE: 09/28/2019 SUBJECTIVE: Feeling better, less cough. No rales. No chest pain. No dyspnea. OBJECTIVE: VITAL SIGNS: Afebrile. Room air O2 of 99%. LUNGS: With few crackles in the left side. Some wheezing. HEART: S1 and S2, regular rate. ABDOMEN: Soft and not distended. LABORATORY DATA: White cell count of 11,000, hemoglobin 12, platelets 579, and 68% neutrophils. Creatinine 0.81 and SARS-CoV not detected. Chest CT, masslike density left hilar region and adjacent perihilar interstitial densities seen, which could be related to postobstructive pneumonitis, interstitial densities right upper lobe as well. ASSESSMENT AND DISCUSSION: Severe chronic obstructive pulmonary disease prior lung malignancy and possible recurrence, although a PET scan done on February 09 showed no metastatic disease, but she did have a 5-mm left upper lobe lung nodule, so it looks like she is responding to treatment and should be able to be discharged on oral antimicrobial therapy either third generation oral cephalosporin or doxycycline. Job ID: [id number]
[2019-09-28] MEDS: Atorvastatin Calcium 10 MG TAB PO SCH (20:18)
[2019-09-29] MEDS: Calcium Carbonate 600 MG + Vit D TAB PO SCH (08:04)
[2019-09-29] MEDS: Aspirin 81 mg Enteric Coated Tablet PO SCH (08:05)
[2019-09-29] MEDS: predniSONE 20 MG TAB PO SCH (08:05)
[2019-09-29] MEDS: Apixaban 2.5 MG TAB PO SCH (08:05)
[2019-09-29] MEDS: Furosemide 20 MG TAB PO SCH (08:06)
[2019-09-29] MEDS: Doxycycline 100 MG CAP PO SCH (08:06)
[2019-09-29] MEDS: Losartan 25 MG TAB PO SCH (08:06)
[2019-09-29] MEDS: Saccharomyces boulardii 250 MG CAP PO SCH (08:06)
[2019-09-29] MEDS: guaiFENesin ER 600 MG TAB PO SCH (08:06)
[2019-09-29] MEDS: Multivit, Therapeutic 1 TAB PO SCH (08:07)
[2019-09-29] MEDS ORDERED: Nebivolol HCl 2.5 MG TAB PO SCH (09:30)
[2019-09-29 10:28] VITALS: BP 173/81
[2019-09-29 11:20] VITALS: TEMP 98.1
--- NOTE | 2019-09-30 06:27 | DIS ---
DATE OF ADMISSION: 09/24/2019 DATE OF DISCHARGE: 09/29/2019 PRIMARY CARE PROVIDER: Dr. Isiah Sánchez. DISPOSITION: Discharged home. CODE STATUS: Full. ALLERGIES: ERYTHROMYCIN, MORPHINE, OXYCODONE, PENICILLINS, HYDROCODONE; SAYS STEROIDS, BUT SHE IS ON PREDNISONE WITHOUT DIFFICULTY. FINAL DIAGNOSES: [id number] respiratory failure with hypoxia, chronic obstructive pulmonary disease with acute exacerbation, pneumonia, unspecified organism, essential hypertension, paroxysmal atrial fibrillation. DISCHARGE MEDICATIONS: 1. Doxycycline 100 mg p.o. b.i.d. x7 days. 2. DuoNeb 3 mL q.6 hours. 3. Bystolic 5 mg p.o. daily. 4. Florastor 250 mg p.o. daily for 14 days. 5. Mucinex 600 mg p.o. b.i.d. p.r.n. 6. Prednisone 20 mg a day b.i.d. for 7 days, then 20 mg a day for 6 days, then discontinue. 7. Eliquis 2.5 mg a day. 8. Lasix 20 mg a day. 9. Aspirin 81 mg a day. 10. Lipitor 10 mg a day. 11. Potassium chloride 20 mEq twice a day. 12. Doxycycline. 13. Diltiazem 180 mg a day. HOSPITAL COURSE: The patient was admitted to the hospital through [facility]. She came to the hospital with chills, shortness of breath, cough. She had elevated white count. She was admitted to the hospital, put on broad-spectrum antibiotics. Blood cultures were ordered. Steroids were ordered IV. Dr. Moncho Jo was consulted. Her Coreg was eventually changed to Bystolic. Dr. Shayan Wu was consulted, Infectious Disease. Her COVID test was negative. CT of the chest was done. She was switched to Rocephin, doxycycline. CT of the chest revealed a masslike opacity in the left hilum. She has a history of lung carcinoma, in remission since 2012. The patient improved dramatically during her stay. She was transitioned to oral antibiotics, transitioned to oral steroids. She is being discharged for followup with Dr. Sánchez, her PCP, in 3 to 5 days. Continued followup of her CT of the chest is warranted in the near future with probable referral to care rep. 40 minutes spent in preparing this discharge. Job ID: [id number]
[2019-09-30] MEDS ORDERED: Nebivolol HCl 5 MG TAB PO SCH (09:00)
== END 2019-09-29 12:46 | disposition home or self-care (01) | DRG 871 ==
LOC: ERS 01:37 → ERHOLD 04:08 → 2NO 09:25
PROVIDERS: ADMIT Internal Medicine; ATTEND Internal Medicine
DX: A41.9 Sepsis, unspecified organism (principal); J18.9 Pneumonia, unspecified organism; I21.A1 Myocardial infarction type 2; J96.01 Acute respiratory failure with hypoxia; J44.0 Chronic obstructive pulmonary disease with (acute) lower respiratory infection; I48.92 Unspecified atrial flutter; J44.1 Chronic obstructive pulmonary disease with (acute) exacerbation; I51.81 Takotsubo syndrome; I50.22 Chronic systolic (congestive) heart failure; E78.00 Pure hypercholesterolemia, unspecified; I48.0 Paroxysmal atrial fibrillation; I11.0 Hypertensive heart disease with heart failure; E83.42 Hypomagnesemia; E83.39 Other disorders of phosphorus metabolism; Z96.649 Presence of unspecified artificial hip joint; Z90.49 Acquired absence of other specified parts of digestive tract; Z90.710 Acquired absence of both cervix and uterus; Z88.0 Allergy status to penicillin; Z88.1 Allergy status to other antibiotic agents; Z88.5 Allergy status to narcotic agent; Z88.8 Allergy status to other drugs, medicaments and biological substances; Z79.51 Long term (current) use of inhaled steroids; Z79.01 Long term (current) use of anticoagulants; Z79.82 Long term (current) use of aspirin; Z79.899 Other long term (current) drug therapy; Z87.891 Personal history of nicotine dependence; Z85.118 Personal history of other malignant neoplasm of bronchus and lung
CPT/HCPCS: 36415; 71045; 71250; 80048; 80053; 82553; 83605; 83735; 83880; 84100; 84484; 85007; 85025; 85027; 87040; 87070; 87081; 87086; 87205; 87449; 87899; 93005; J0696; J2920; J3370; J3475; J3490; J7512; J7620; U0002

== ENCOUNTER 2020-02-09 16:19 | Inpatient (IN) | payer MEDICARE, BC ==
[2020-02-09] MEDS ORDERED: Albuterol 200 PUFF (6.7GM INHALER) ONE (16:53)
--- NOTE | 2020-02-09 17:02 | RAD ---
XR Chest 1 View Portable History: Shortness of breath Comparison: Radiograph September 24, 2019 Findings: Extensive scarring throughout the lungs. Round atelectasis with pleural calcifications righ t lung base. No pneumothorax. Old right distal clavicular injury. Moderate vascular calcifications. Impression: Either slightly increasing right layering pleural effusion versus progressive platelike s car. No definite evidence of pneumonia.
[2020-02-09 17:09] LABS: Hemoglobin 12.6 g/dL (12.0-16.0); Mean Corpuscular HGB CONC 31.6 g/dL (32.0-36.0); Mean Corpuscular Hemoglobin 24.9 pg (27.0-31.0); Mean Platelet Volume 6.7 fL (7.4-10.4); Platelet Count 617 thou/uL (130-400); RBC Distribution Width 16.6 % (11.5-14.5); Red Blood Cell (RBC) Count 5.06 mill/uL (4.20-5.40); White Blood Cell (WBC) Count 21.3 thou/uL (4.8-10.8)
[2020-02-09 17:25] LABS: Anisocytosis SLIGHT = 6-15 cells (100X) (0-5/hpf); Band 8 % (5-11); Eosinophils 1 % (0-10); Hypochromia SLIGHT = 6-15 cells (100X) (0-5/hpf); Lymphocytes 7 % (21-51); MDiff Complete? YES; Monocytes 1 % (0-10); Neutrophil 80 % (42-75); Platelet Morphology Comment Appears Increased; Reactive Lymphocytes 1 % (0-10); Schistocytes SLIGHT = 2-5 cells (100X) (0-1/hpf)
[2020-02-09 17:32] LABS: ALT (SGPT) 13 U/L (8-55); AST (SGOT) 19 U/L (5-34); Albumin 3.9 g/dL (3.4-4.8); Alkaline Phosphatase 107 U/L (40-110); Anion Gap 12 mmol/L (10-20); BUN (Urea Nitrogen) 11 mg/dL (9.8-20.1); Bilirubin, Total 0.8 mg/dL (0.2-1.2); CK (CPK) 49 U/L (29-168); Calc. Creatinine Clearance 0 mL/min (70-130); Calcium 10.3 mg/dL (7.8-10.44); Carbon Dioxide 24 mmol/L (23-31); Chloride 97 mmol/L (98-107); Estimated GFR-MDRD 74; Globulin 3.4 g/dL (2.4-3.5); Glucose 121 mg/dL (83-110); Potassium 4.1 mmol/L (3.5-5.1); Protein, Total 7.3 g/dL (6.0-8.3); Sodium 129 mmol/L (136-145)
[2020-02-09] MEDS ORDERED: Cefepime 2 GM VIAL ONE (19:26)
[2020-02-09] MEDS ORDERED: cefTRIAXone\\ROCEPHIN 1 GM in Sodium Chloride 0.9% 100 ML IVPB SCH (20:00)
[2020-02-09 20:07] LABS: Bacteria/HPF None Seen HPF (None Seen); Bilirubin Negative (Negative); Blood, Urine Negative (Negative); Clarity Clear (Clear); Glucose, Urine (Dipstick) Normal (Negative); Ketone, Urine Negative (Negative); Leukocyte 75 Leu/uL (Negative); Nitrite Negative (Negative); Protein, Urine (Dipstick) 20 mg/dL (Neg-Trace); RBC/HPF 0-3 HPF (0-3); Specific Gravity, Urine 1.011 (1.002-1.036); Squamous Epithelial 0-3 HPF (0-3); Urobilinogen Normal mg/dL (Less than 2); WBC/HPF 0-3 HPF (0-3); pH, Urine 6.5 (5.0-9.0)
[2020-02-09] MEDS ORDERED: Furosemide 20 MG/2 ML VIAL SLOW IVP SCH (20:15)
[2020-02-09 23:07] LABS: SARS-CoV-2 NAA Rapid Test Not Detected (NotDetected)
[2020-02-09] MEDS ORDERED: methylPREDNISolone Sod Succ 40 MG VIAL IVP SCH (23:59)
[2020-02-10] MEDS ORDERED: Ondansetron PF 4 MG/2 ML Vial IVP PRN (00:30)
[2020-02-10] MEDS ORDERED: Acetaminophen 325 MG TAB PO PRN (00:30)
[2020-02-10] MEDS ORDERED: Ondansetron ODT 4 MG TAB SL PRN (00:30)
--- NOTE | 2020-02-10 01:04 | HP ---
CHIEF COMPLAINT: Shortness of breath and cough. HISTORY OF PRESENT ILLNESS: Ms. Fenton is an 84-year-old female, with past medical history of COPD; atrial fibrillation/atrial flutter; lung cancer, which was treated with surgery, among others, presents to the emergency room with shortness of breath associated with cough productive of yellowish sputum. Symptoms got worse today. Denies fever or chills. Patient was hypoxic as per EMS. Patient received breathing treatments and 125 IV Solu-Medrol. Some minimal improvement. Workup in the emergency room, patient had elevated WBC count of 21.3, hemoglobin 12.6, and platelets 617. Sodium is 129, , and glucose 121. Chest x-ray showed layering of pleural effusion/atelectasis/infiltrate. No septic workup done in the ED. Patient was started on IV antibiotics. Patient was given IV steroids and breathing treatments. Patient is being admitted to the hospital for further management. PAST MEDICAL HISTORY: As mentioned above in the history of present illness. PAST SURGICAL HISTORY: 1. Cholecystectomy. 2. Hernia repair. 3. Hysterectomy. 4. Hip surgery. SOCIAL HISTORY: Patient denies alcohol use. Patient is a former tobacco user, used to smoke cigarettes, quit more than 10 years ago. Lives at home with family. ALLERGIES: ALLERGIC TO AMOXICILLIN, ERYTHROMYCIN, HYDROCODONE, MORPHINE, PENICILLIN, ?STEROIDS, BUT THIS IS UNCONFIRMED. HOME MEDICATIONS: Please see home medication reconciliation form for updated medications. Patient is on Eliquis and Lasix, among other medications. REVIEW OF SYSTEMS: Review of 14 systems negative, except what is mentioned in history of present illness. PHYSICAL EXAMINATION: GENERAL: Patient is awake, alert, in moderate distress. VITAL SIGNS: Blood pressure 150/80, pulse is 69, respiratory rate is 22, oxygen saturation is 95% on 2 L/minute nasal cannula, and temperature is 98.9. HEAD AND NECK: Normocephalic, atraumatic. Neck is supple. CHEST: Bilateral expiratory wheeze. HEART: S1, S2. Regular. ABDOMEN: Soft, nontender. Bowel sounds present. NEUROLOGIC: Awake, alert, moving extremities. PSYCH: Unable to assess. GENITOURINARY: No suprapubic tenderness. No flank tenderness. LABORATORY DATA: As mentioned above in history present illness. IMAGING STUDIES: As mentioned above in history of present illness. ASSESSMENT: 1. Chronic obstructive pulmonary disease with acute exacerbation. 2. Hyponatremia. 3. History of atrial fibrillation/flutter. 4. Anticoagulated, on Eliquis. 5. Hypertension. 6. History of lung cancer. PLAN: 1. Admit. 2. Oxygen to keep saturation more than 92%. 3. Bronchodilator, scheduled and as needed. 4. IV steroids. 5. Reconcile home medications. 6. DVT prophylaxis. Continue home anticoagulants. 7. Expected length of stay, 2 midnights or more. Job ID: [id number]
[2020-02-10 05:17] VITALS: BMI 22.6
[2020-02-10 05:20] LABS: Band 16 % (5-11); Hemoglobin 13.1 g/dL (12.0-16.0); Lymphocytes 2 % (21-51); MDiff Complete? YES; Mean Corpuscular Hemoglobin 25.4 pg (27.0-31.0); Mean Corpuscular Volume 79.3 fL (78.0-98.0); Mean Platelet Volume 6.9 fL (7.4-10.4); Monocytes 5 % (0-10); Neutrophil 77 % (42-75); Platelet Count 581 thou/uL (130-400); Platelet Morphology Comment Appears Increased; RBC Distribution Width 16.8 % (11.5-14.5); RBC Morphology Normal; Red Blood Cell (RBC) Count 5.16 mill/uL (4.20-5.40); White Blood Cell (WBC) Count 22.7 thou/uL (4.8-10.8)
[2020-02-10 05:23] LABS: ALT (SGPT) 17 U/L (8-55); AST (SGOT) 23 U/L (5-34); Albumin 3.8 g/dL (3.4-4.8); Alkaline Phosphatase 104 U/L (40-110); Anion Gap 15 mmol/L (10-20); BUN (Urea Nitrogen) 12 mg/dL (9.8-20.1); Bilirubin, Total 0.4 mg/dL (0.2-1.2); Calc. Creatinine Clearance 51 mL/min (70-130); Calcium 10.3 mg/dL (7.8-10.44); Carbon Dioxide 21 mmol/L (23-31); Chloride 99 mmol/L (98-107); Estimated GFR-MDRD 82; Globulin 3.5 g/dL (2.4-3.5); Glucose 131 mg/dL (83-110); Potassium 4.2 mmol/L (3.5-5.1); Protein, Total 7.3 g/dL (6.0-8.3); Sodium 131 mmol/L (136-145)
[2020-02-10] MEDS: Furosemide 20 MG/2 ML VIAL SLOW IVP SCH ×2 (06:49→14:33)
--- NOTE | 2020-02-10 07:12 | PDOC.HOSPP ---
- Subjective Encounter Date: 02/10/20 Encounter Time: 09:15 Subjective: Patient feeling much better. Breathing deeper, wheezing less, and able to get enough air in to sneeze now. - Objective Vital Signs & Weight: Vital Signs (12 hours) Temp Pulse Resp BP Pulse Ox 02/10/20 04:00 97.3 F L 76 20 149/79 H 95 Weight Weight 119 lb 8 oz Result Diagrams: 02/10/20 04:43 02/10/20 04:43 Hospitalist ROS - Review of Systems Constitutional: denies: fever, chills Respiratory: reports: cough, shortness of breath Cardiovascular: denies: chest pain, palpitations Gastrointestinal: denies: nausea, vomiting, abdominal pain - Medication Medications: Active Medications Generic Name Dose Route Start Last Admin Trade Name Freq PRN Reason Stop Dose Admin Furosemide 20 mg 02/10/20 06:00 02/10/20 06:49 Furosemide 20 Mg/2 Ml Vial SLOW IVP 20 mg 0600,1400 DESIREE Administration Ceftriaxone Sodium 1 gm/ 100 mls @ 200 mls/hr 02/09/20 20:00 02/10/20 03:00 Sodium Chloride IVPB Not Given Q24HR DESIREE Doxycycline Hyclate 100 mg/ 100 mls @ 100 mls/hr 02/09/20 21:00 02/10/20 03:00 Sodium Chloride IVPB Not Given Q12HR DESIREE Sodium Chloride 10 ml 02/09/20 21:00 02/10/20 03:02 Flush - Normal Saline 10 Ml Syringe IVF 10 ml Q12HR DESIREE Administration - Exam General Appearance: NAD, awake alert ENT: moist mucosa Heart: RRR, no murmur, no gallops, no rubs Respiratory: no rales, no ronchi, no tachypnea, wheezes Gastrointestinal: soft, non-tender, non-distended, normal bowel sounds Psychiatric: normal affect, normal behavior, A&O x 3 Hosp A/P (1) COPD exacerbation Code(s): J44.1 - CHRONIC OBSTRUCTIVE PULMONARY DISEASE W (ACUTE) EXACERBATION Status: Acute (2) Acute respiratory failure with hypoxia Code(s): J96.01 - ACUTE RESPIRATORY FAILURE WITH HYPOXIA Status: Acute (3) CAD (coronary artery disease) Code(s): I25.10 - ATHSCL HEART DISEASE OF [place] CORONARY ARTERY W/O ANG PCTRS Status: Chronic Qualifiers: (4) Hypertension Code(s): I10 - ESSENTIAL (PRIMARY) HYPERTENSION Status: Chronic Qualifiers: (5) Paroxysmal A-fib Code(s): I48.0 - PAROXYSMAL ATRIAL FIBRILLATION Status: Chronic - Plan Doxycycline, Nebs, Steroids. Doing well on 2L NC. Elevated BNP, will check ECHO. Getting Lasix BID. DVT Proph: Usman TIERNEY Proph: Meggan
[2020-02-10] MEDS ORDERED: traMADol HCl 50 MG TAB PO PRN (07:19)
[2020-02-10] MEDS: Aspirin 81 mg Enteric Coated Tablet PO SCH ×2 (10:07→20:42)
[2020-02-10] MEDS: Famotidine 20 MG TAB PO SCH ×2 (10:07→20:42)
[2020-02-10] MEDS: Losartan 25 MG TAB PO SCH (10:07)
[2020-02-10] MEDS: guaiFENesin ER 600 MG TAB PO SCH ×2 (10:07→20:44)
[2020-02-10] MEDS: Saccharomyces boulardii 250 MG CAP PO SCH (10:08)
[2020-02-10] MEDS: Nebivolol HCl 5 MG TAB PO SCH (10:08)
[2020-02-10] MEDS: Apixaban 2.5 MG TAB PO SCH ×2 (10:08→20:45)
[2020-02-10] MEDS: methylPREDNISolone Sod Succ 40 MG VIAL IVP SCH ×3 (10:08→21:38)
--- NOTE | 2020-02-10 17:55 | CON ---
DATE OF CONSULTATION: HISTORY OF PRESENT ILLNESS: Merced Fenton is an 84-year-old female from [place], presented with increasing shortness of breath and cough with yellow sputum production. X-ray showed extensive scarring with some pleural thickening and small pleural effusion bilaterally. She then had a CT of chest done, which showed once again rather extensive scarring, chronic changes. She was started on antibiotics and steroids to which she says she is feeling better. She was recently in the hospital here in September with respiratory failure, atrial fibrillation. It is unclear whether she was seen by Dr. Vogt at that time. Most days, she has difficulty ambulating with significant dyspnea on exertion. PAST MEDICAL HISTORY: As noted, hypertension, lung cancer, COPD, and chronic asthma. PREVIOUS SURGERIES: Left lower lobectomy, cholecystectomy. HOME MEDICATIONS: Include: 1. Cardizem CD 180. 2. Lipitor 10. 3. Aspirin. 4. Eliquis 2.5. 5. Cozaar 100. 6. Nebulizer. 7. Bystolic 5. 8. Tramadol 50. DIAGNOSTIC STUDIES: Last echocardiogram done almost a year ago showed that the EF was depressed at 35% to 40%. REVIEW OF SYSTEMS: Otherwise, 10-point negative. PHYSICAL EXAMINATION: GENERAL: Awake, alert, responsive. VITAL SIGNS: Temperature 97, pulse 98, respiratory rate 16, sats . CHEST: Diffuse wheezing, rhonchi. CARDIAC: Normal S1 and S2. No gallops. ABDOMEN: No masses. LABORATORY DATA: White count is elevated at 22, H and H are 13 and 41, platelet count 581. Lytes are normal. Sodium 131. BNP is 351. ASSESSMENT AND PLAN: Coronavirus test negative, chronic obstructive pulmonary disease exacerbation, bronchitis, congestive heart failure, advanced age, chronic scarring. I agree with present treatment. I have added Dulera. Obtain a sputum culture. We can probably deescalate antibiotics once she has results back. Consultation note, 70 minutes, 50% direct patient care. We will notify Dr. Vogt in the morning. Job ID: [id number]
[2020-02-10] MEDS: Mometasone 200 MCG/Formoterol 5 MCG 120 PUFF INHALER INH SCH ×2 (18:24→22:09)
[2020-02-10] MEDS: Atorvastatin Calcium 10 MG TAB PO SCH (20:42)
[2020-02-10] MEDS: hydrOXYzine 25 MG TAB PO SCH (20:42)
[2020-02-11] MEDS: methylPREDNISolone Sod Succ 40 MG VIAL IVP SCH ×4 (03:27→20:48)
[2020-02-11] MEDS: Furosemide 20 MG/2 ML VIAL SLOW IVP SCH ×2 (05:20→14:35)
[2020-02-11] MEDS: Mometasone 200 MCG/Formoterol 5 MCG 120 PUFF INHALER INH SCH ×2 (06:48→19:34)
--- NOTE | 2020-02-11 07:21 | PDOC.HOSPP ---
- Subjective Encounter Date: 02/11/20 Encounter Time: 10:20 Subjective: Patient feeling much better. Still with cough and SOB but those are much better. Took her own O2 off this AM and was doing ok on that, but gets very SOB with ambulation if no O2. States this has gotten worse recently. Has some home O2 that she uses at night sometimes, but really needs a small, portable O2 for when she needs to go out or to the store, as ambulating and wearing a mask causes severe symptoms. - Objective Vital Signs & Weight: Vital Signs (12 hours) Temp Pulse Resp BP Pulse Ox 02/11/20 06:48 63 16 92 L 02/11/20 06:41 92 L 02/11/20 06:39 64 20 92 L 02/11/20 03:21 97.6 F 75 28 H 135/70 95 02/11/20 02:29 89 20 95 02/10/20 23:19 97.7 F 69 16 134/66 97 02/10/20 22:14 16 02/10/20 20:00 98.3 F 71 16 130/66 96 Weight Weight 117 lb 11.2 oz I&O: 02/10/20 02/11/20 02/12/20 06:59 06:59 06:59 Intake Total 1720 Output Total 1350 Balance 370 Result Diagrams: 02/10/20 04:43 02/10/20 04:43 Hospitalist ROS - Review of Systems Constitutional: denies: fever, chills Respiratory: reports: cough, SOB with excertion, wheezing. denies: shortness of breath Cardiovascular: denies: chest pain, palpitations Gastrointestinal: denies: nausea, vomiting, abdominal pain - Medication Medications: Active Medications Generic Name Dose Route Start Last Admin Trade Name Freq PRN Reason Stop Dose Admin Albuterol/Ipratropium 3 ml 02/10/20 18:30 02/11/20 06:39 Ipratropium/Albuterol Sulfate 3 Ml Neb NEB 3 ml [id number] DESIREE Administration Apixaban 2.5 mg 02/10/20 09:00 02/10/20 20:45 Apixaban 2.5 Mg Tab PO 2.5 mg BID DESIREE Administration Aspirin 81 mg 02/10/20 09:00 02/10/20 20:42 Aspirin 81 Mg Enteric Coated Tablet PO 81 mg BID DESIREE Administration Atorvastatin Calcium 10 mg 02/10/20 21:00 02/10/20 20:42 Atorvastatin Calcium 10 Mg Tab PO Not Given HS DESIREE Diltiazem HCl 180 mg 02/10/20 09:00 02/10/20 10:07 Diltiazem Hcl Cd 180 Mg Capsule PO 180 mg QAM DESIREE Administration Famotidine 20 mg 02/10/20 09:00 02/10/20 20:42 Famotidine 20 Mg Tab PO 20 mg BID DESIREE Administration Furosemide 20 mg 02/10/20 06:00 02/11/20 05:20 Furosemide 20 Mg/2 Ml Vial SLOW IVP 20 mg 0600,1400 DESIREE Administration Guaifenesin 600 mg 02/10/20 09:00 02/10/20 20:44 Guaifenesin Er 600 Mg Tab PO 600 mg Q12HR DESIREE Administration Hydroxyzine HCl 25 mg 02/10/20 21:00 02/10/20 20:42 Hydroxyzine 25 Mg Tab PO 25 mg HS DESIREE Administration Doxycycline Hyclate 100 mg/ 100 mls @ 100 mls/hr 02/09/20 21:00 02/10/20 20:45 Sodium Chloride IVPB 100 mls Q12HR DESIREE Administration Losartan Potassium 100 mg 02/10/20 09:00 02/10/20 10:07 Losartan 25 Mg Tab PO 100 mg DAILY DESIREE Administration Methylprednisolone Sodium Succinate 40 mg 02/10/20 09:00 02/11/20 03:27 Methylprednisolone Sod Succ 40 Mg Vial IVP 40 mg 0300,0900,1500,2100 DESIREE Administration Mometasone Furoate/Formoterol Fumar 2 puff 02/10/20 18:30 02/11/20 06:48 Mometasone 200 Mcg/Formoterol 5 Mcg 120 Puff Inhaler INH 2 puff BID-RT DESIREE Administration Nebivolol 5 mg 02/10/20 09:00 02/10/20 10:08 Nebivolol Hcl 5 Mg Tab PO 5 mg DAILY DESIREE Administration Saccharomyces Boulardii 250 mg 02/10/20 09:00 02/10/20 10:08 Saccharomyces Boulardii 250 Mg Cap PO 250 mg DAILY DESIREE Administration Sodium Chloride 10 ml 02/09/20 21:00 02/10/20 20:42 Flush - Normal Saline 10 Ml Syringe IVF 10 ml Q12HR DESIREE Administration - Exam General Appearance: NAD, awake alert ENT: moist mucosa Heart: RRR, no murmur, no gallops, no rubs Respiratory: no rales, no ronchi, normal chest expansion, no tachypnea, wheezes Respiratory - other findings: diffuse wheezes, air movement improved a bit Gastrointestinal: soft, non-tender, non-distended, normal bowel sounds Psychiatric: normal affect, normal behavior, A&O x 3 Hosp A/P (1) COPD exacerbation Code(s): J44.1 - CHRONIC OBSTRUCTIVE PULMONARY DISEASE W (ACUTE) EXACERBATION Status: Acute (2) Acute respiratory failure with hypoxia Code(s): J96.01 - ACUTE RESPIRATORY FAILURE WITH HYPOXIA Status: Acute (3) CAD (coronary artery disease) Code(s): I25.10 - ATHSCL HEART DISEASE OF [place] CORONARY ARTERY W/O ANG PCTRS Status: Chronic Qualifiers: (4) Hypertension Code(s): I10 - ESSENTIAL (PRIMARY) HYPERTENSION Status: Chronic Qualifiers: (5) Paroxysmal A-fib Code(s): I48.0 - PAROXYSMAL ATRIAL FIBRILLATION Status: Chronic (6) Chronic systolic (congestive) heart failure Code(s): I50.22 - CHRONIC SYSTOLIC (CONGESTIVE) HEART FAILURE Status: Chronic - Plan Doxycycline, Nebs, Steroids. Doing well on 2L NC yesterday and sating low 90s on RA this morning. Pulmonology following. Elevated BNP, will check ECHO. Getting Lasix BID. Will check O2 sats while ambulating and see if qualifies for ambulatory home O2. DVT Proph: Usman GI Proph: Meggan
[2020-02-11] MEDS: Famotidine 20 MG TAB PO SCH ×2 (10:10→20:49)
[2020-02-11] MEDS: Apixaban 2.5 MG TAB PO SCH ×2 (10:11→20:49)
[2020-02-11] MEDS: Losartan 25 MG TAB PO SCH (10:11)
[2020-02-11] MEDS: Nebivolol HCl 5 MG TAB PO SCH (10:12)
[2020-02-11] MEDS: Saccharomyces boulardii 250 MG CAP PO SCH (10:12)
[2020-02-11] MEDS: guaiFENesin ER 600 MG TAB PO SCH ×2 (10:12→20:49)
[2020-02-11] MEDS: Aspirin 81 mg Enteric Coated Tablet PO SCH ×2 (10:13→20:49)
--- NOTE | 2020-02-11 11:12 | PRG ---
DATE OF SERVICE: 02/11/2020 SUBJECTIVE: The patient continued to wheeze and have problems with shortness of breath. OBJECTIVE: VITAL SIGNS: Temperature 97.6, pulse 69, respirations 16, O2 saturation 98% on 2 L, blood pressure 137/71. HEENT: Unremarkable. NECK: No adenopathy or JVD. CHEST: With diffuse bilateral expiratory wheezing. CARDIAC: S1 and S2. Regular. ABDOMEN: Soft. EXTREMITIES: No edema. LABORATORY DATA: No labs were done today. ASSESSMENT: Chronic obstructive pulmonary disease exacerbation. PLAN: Continue antibiotics, IV corticosteroids, and nebulization treatments. needing 2 to 3 more days in the hospital. Job ID: [id number]
[2020-02-11] MEDS: Atorvastatin Calcium 10 MG TAB PO SCH (20:48)
[2020-02-11] MEDS: hydrOXYzine 25 MG TAB PO SCH (20:49)
[2020-02-12] MEDS: methylPREDNISolone Sod Succ 40 MG VIAL IVP SCH ×3 (03:19→14:15)
[2020-02-12] MEDS: Furosemide 20 MG/2 ML VIAL SLOW IVP SCH ×2 (05:31→14:15)
[2020-02-12] MEDS: Mometasone 200 MCG/Formoterol 5 MCG 120 PUFF INHALER INH SCH (07:01)
--- NOTE | 2020-02-12 07:18 | PDOC.HOSPP ---
- Subjective Encounter Date: 02/12/20 Encounter Time: 09:30 Subjective: Patient feeling much better today. Less wheezing. Ambulating well with O2. - Objective Vital Signs & Weight: Vital Signs (12 hours) Temp Pulse Resp BP Pulse Ox 02/12/20 06:59 71 16 94 L 02/12/20 03:48 97.0 F L 66 16 121/57 L 97 02/12/20 01:59 69 16 95 02/12/20 01:23 97 02/11/20 23:53 97.8 F 74 16 134/62 90 L 02/11/20 22:00 72 16 97 02/11/20 20:00 97 02/11/20 19:37 67 16 97 02/11/20 19:34 97.3 F L 67 16 123/62 97 Weight Weight 121 lb 9.6 oz I&O: 02/11/20 02/12/20 02/13/20 06:59 06:59 06:59 Intake Total 1720 1640 Output Total 1350 1235 Balance 370 405 Result Diagrams: 02/12/20 09:13 02/12/20 09:13 Hospitalist ROS - Review of Systems Constitutional: denies: fever, chills Respiratory: reports: SOB with excertion. denies: cough, shortness of breath Cardiovascular: denies: chest pain, palpitations Gastrointestinal: denies: nausea, vomiting, abdominal pain - Medication Medications: Active Medications Generic Name Dose Route Start Last Admin Trade Name Freq PRN Reason Stop Dose Admin Albuterol/Ipratropium 3 ml 02/10/20 18:30 02/12/20 06:59 Ipratropium/Albuterol Sulfate 3 Ml Neb NEB 3 ml [id number] DESIREE Administration Apixaban 2.5 mg 02/10/20 09:00 02/11/20 20:49 Apixaban 2.5 Mg Tab PO 2.5 mg BID DESIREE Administration Aspirin 81 mg 02/10/20 09:00 02/11/20 20:49 Aspirin 81 Mg Enteric Coated Tablet PO 81 mg BID DESIREE Administration Atorvastatin Calcium 10 mg 02/10/20 21:00 02/11/20 20:48 Atorvastatin Calcium 10 Mg Tab PO Not Given HS DESIREE Diltiazem HCl 180 mg 02/10/20 09:00 02/11/20 10:12 Diltiazem Hcl Cd 180 Mg Capsule PO 180 mg QAM DESIREE Administration Famotidine 20 mg 02/10/20 09:00 02/11/20 20:49 Famotidine 20 Mg Tab PO 20 mg BID DESIREE Administration Furosemide 20 mg 02/10/20 06:00 02/12/20 05:31 Furosemide 20 Mg/2 Ml Vial SLOW IVP 20 mg 0600,1400 DESIREE Administration Guaifenesin 600 mg 02/10/20 09:00 02/11/20 20:49 Guaifenesin Er 600 Mg Tab PO 600 mg Q12HR DESIREE Administration Hydroxyzine HCl 25 mg 02/10/20 21:00 02/11/20 20:49 Hydroxyzine 25 Mg Tab PO 25 mg HS DESIREE Administration Doxycycline Hyclate 100 mg/ 100 mls @ 100 mls/hr 02/09/20 21:00 02/11/20 20:49 Sodium Chloride IVPB 100 mls Q12HR DESIREE Administration Losartan Potassium 100 mg 02/10/20 09:00 02/11/20 10:11 Losartan 25 Mg Tab PO 100 mg DAILY DESIREE Administration Methylprednisolone Sodium Succinate 40 mg 02/10/20 09:00 02/12/20 03:19 Methylprednisolone Sod Succ 40 Mg Vial IVP 40 mg 0300,0900,1500,2100 DESIREE Administration Mometasone Furoate/Formoterol Fumar 2 puff 02/10/20 18:30 02/12/20 07:01 Mometasone 200 Mcg/Formoterol 5 Mcg 120 Puff Inhaler INH 2 puff BID-RT DESIREE Administration Nebivolol 5 mg 02/10/20 09:00 02/11/20 10:12 Nebivolol Hcl 5 Mg Tab PO 5 mg DAILY DESIREE Administration Saccharomyces Boulardii 250 mg 02/10/20 09:00 02/11/20 10:12 Saccharomyces Boulardii 250 Mg Cap PO 250 mg DAILY DESIREE Administration Sodium Chloride 10 ml 02/09/20 21:00 02/11/20 20:49 Flush - Normal Saline 10 Ml Syringe IVF 10 ml Q12HR DESIREE Administration Sodium Chloride 10 ml 02/09/20 20:15 02/12/20 05:31 Flush - Normal Saline 10 Ml Syringe IVF 10 ml PRN PRN Administration Saline Flush - Exam General Appearance: NAD, awake alert ENT: moist mucosa Heart: RRR, no murmur, no gallops, no rubs Respiratory - other findings: decreased wheezing and moving air well Gastrointestinal: soft, non-tender, non-distended, normal bowel sounds, no palpable masses Psychiatric: normal affect, normal behavior, A&O x 3 Hosp A/P (1) COPD exacerbation Code(s): J44.1 - CHRONIC OBSTRUCTIVE PULMONARY DISEASE W (ACUTE) EXACERBATION Status: Acute (2) Acute respiratory failure with hypoxia Code(s): J96.01 - ACUTE RESPIRATORY FAILURE WITH HYPOXIA Status: Acute (3) CAD (coronary artery disease) Code(s): I25.10 - ATHSCL HEART DISEASE OF [place] CORONARY ARTERY W/O ANG PCTRS Status: Chronic Qualifiers: (4) Hypertension Code(s): I10 - ESSENTIAL (PRIMARY) HYPERTENSION Status: Chronic Qualifiers: (5) Paroxysmal A-fib Code(s): I48.0 - PAROXYSMAL ATRIAL FIBRILLATION Status: Chronic (6) Chronic systolic (congestive) heart failure Code(s): I50.22 - CHRONIC SYSTOLIC (CONGESTIVE) HEART FAILURE Status: Chronic - Plan Doxycycline, Nebs, Steroids. Doing well on 2L NC. Pulmonology following. Elevated BNP, ECHO with diastolic dysfunction. Getting Lasix BID. O2 sats dropped on room air while ambulating. Arrange ambulatory O2 at home, PT/OT, and can d/c home this afternoon. DVT Proph: Usman GI Proph: Meggan
--- NOTE | 2020-02-12 09:43 | PRG ---
DATE OF SERVICE: 02/12/2020 SUBJECTIVE: The patient is doing well, has no complaints and wants to go home. OBJECTIVE: VITAL SIGNS: Temperature 97.3, pulse 72, respirations 16, O2 saturation 97% on room air. Blood pressure 140/76. HEENT: Unremarkable. NECK: No adenopathy or JVD. CHEST: Clear. CARDIAC: S1 and S2. Regular. ABDOMEN: Soft. EXTREMITIES: No edema. ASSESSMENT: Chronic obstructive pulmonary disease exacerbation. PLAN: I think the patient is stable to go home. I would taper steroids over 2 weeks. Finish out full 7 days of antibiotics. Continue her breathing treatments. She can follow up with me in the office in about 2 months. Job ID: [id number]
[2020-02-12] MEDS: Aspirin 81 mg Enteric Coated Tablet PO SCH (09:46)
[2020-02-12 09:47] LABS: #Lymphocytes 0.4 thou/uL (1.20-3.40); #Monocytes 0.3 thou/uL (0.11-0.59); #Neutrophils 7.5 thou/uL (1.40-6.50); %Eosinophils 0.1 % (0.0-10.0); %Lymphocytes 4.5 % (21.0-51.0); %Monocytes 3.5 % (0.0-10.0); Hemoglobin 13.5 g/dL (12.0-16.0); Mean Corpuscular HGB CONC 31.9 g/dL (32.0-36.0); Mean Corpuscular Hemoglobin 25.7 pg (27.0-31.0); Mean Corpuscular Volume 80.8 fL (78.0-98.0); Mean Platelet Volume 6.9 fL (7.4-10.4); Platelet Count 696 thou/uL (130-400); Red Blood Cell (RBC) Count 5.25 mill/uL (4.20-5.40); White Blood Cell (WBC) Count 8.1 thou/uL (4.8-10.8)
[2020-02-12] MEDS: Losartan 25 MG TAB PO SCH (09:47)
[2020-02-12] MEDS: Saccharomyces boulardii 250 MG CAP PO SCH (09:47)
[2020-02-12] MEDS: Famotidine 20 MG TAB PO SCH (09:47)
[2020-02-12] MEDS: guaiFENesin ER 600 MG TAB PO SCH (09:48)
[2020-02-12] MEDS: Nebivolol HCl 5 MG TAB PO SCH (09:48)
[2020-02-12] MEDS: Apixaban 2.5 MG TAB PO SCH (09:50)
[2020-02-12 10:02] LABS: Anion Gap 17 mmol/L (10-20); BUN (Urea Nitrogen) 29 mg/dL (9.8-20.1); Calc. Creatinine Clearance 31 mL/min (70-130); Carbon Dioxide 24 mmol/L (23-31); Chloride 95 mmol/L (98-107); Estimated GFR-MDRD 45; Glucose 140 mg/dL (83-110); Potassium 3.1 mmol/L (3.5-5.1); Sodium 133 mmol/L (136-145)
[2020-02-12 12:23] VITALS: TEMP 98
[2020-02-12] MEDS ORDERED: Potassium Chloride 20 MEQ TAB PO SCH (13:15)
[2020-02-12 15:10] VITALS: BP 164/84
--- NOTE | 2020-02-13 01:05 | DIS ---
DATE OF ADMISSION: 02/09/2020 DATE OF DISCHARGE: 02/12/2020 PRIMARY CARE PHYSICIAN: Dr. Sánchez. REASON FOR ADMISSION: COPD exacerbation. DIAGNOSES AT DISCHARGE: 1. Chronic obstructive pulmonary disease exacerbation. 2. Acute on chronic respiratory failure with hypoxia. 3. Coronary artery disease. 4. Hypertension. 5. Paroxysmal atrial fibrillation. 6. Chronic diastolic congestive heart failure. PROCEDURE: Echocardiogram showing ejection fraction of 55% to 60% and diastolic dysfunction. CONSULTATIONS: Pulmonology, Dr. Juárez, for Dr. Vogt. SUMMARY OF HOSPITAL COURSE: This is an 84-year-old female with a past medical history of COPD. She does have some home O2, she uses on and off. Also with a history of atrial fibrillation and previous lung cancer, treated with surgery. She presented to the emergency room with worsening shortness of breath and cough. She had a chest x-ray that showed a persistent scarring versus layering pleural effusion, but no infection. She was very wheezy and tight. In the emergency room, was given steroids, inhalers, and antibiotics. Dr. Juárez was consulted for Pulmonology. The patient showed a marked improvement during her hospitalization. Her wheezing decreased and her air movement improved. She was able to get up and ambulate well. However, she had desaturations when ambulating at home. She has only O2 in the house, which does not help her when she has to go out and do shopping, so we are arranging some portable O2 that she can take with her. The patient did have an elevated brain natriuretic peptide. During hospitalization, she was given some Lasix due to concern for possible CHF contribution to her breathing problems. Echocardiogram showed a preserved ejection fraction. She had a little bump in her creatinine the last day, so we are discontinuing the diuretics. The patient is doing well and is being discharged home. DISCHARGE MANAGEMENT: Discharged home with Home Health. ACTIVITY: As tolerated. DIET: Fluid restricted, healthy heart, low-sodium diet. THERAPY: Occupational and physical therapy. EQUIPMENT AND SUPPLIES: Home O2 including portable oxygen. FOLLOWUP: Follow up with Dr. Sánchez in 7 days, with Dr. Vogt in 2 months. DISCHARGE MEDICATIONS: 1. Dulera 200/5 mcg two puffs inhaled twice a day. 2. Prednisone taper over 2 weeks. 3. Doxycycline 100 mg twice a day, 6 caps dispensed. 4. Eliquis 2.5 mg twice a day. 5. Aspirin 81 mg twice a day. 6. Atorvastatin 10 mg at night. 7. Diltiazem 180 mg daily. 8. Mucinex 600 mg every 12 hours. 9. Hydroxyzine at night as needed. 10. Losartan 100 mg daily. 11. Bystolic 5 mg daily. 12. Florastor 250 mg daily. 13. Tramadol as needed for pain. 14. Furosemide 20 mg daily. 15. DuoNeb q.6 hours and as needed. Job ID: [id number] [facility]
== END 2020-02-12 15:24 | disposition home health service (06) | DRG 189 ==
LOC: ERS 16:19 → 2SE 19:51
PROVIDERS: ADMIT Internal Medicine; ATTEND Emergency Medicine
DX: J96.21 Acute and chronic respiratory failure with hypoxia (principal); J44.1 Chronic obstructive pulmonary disease with (acute) exacerbation; E87.1 Hypo-osmolality and hyponatremia; I50.22 Chronic systolic (congestive) heart failure; I48.92 Unspecified atrial flutter; I48.0 Paroxysmal atrial fibrillation; I25.10 Atherosclerotic heart disease of native coronary artery without angina pectoris; Z20.828 Contact with and (suspected) exposure to other viral communicable diseases; I11.0 Hypertensive heart disease with heart failure; Z90.49 Acquired absence of other specified parts of digestive tract; Z90.710 Acquired absence of both cervix and uterus; Z98.890 Other specified postprocedural states; Z87.891 Personal history of nicotine dependence; Z85.118 Personal history of other malignant neoplasm of bronchus and lung; Z88.1 Allergy status to other antibiotic agents; Z88.0 Allergy status to penicillin; Z88.6 Allergy status to analgesic agent; Z88.8 Allergy status to other drugs, medicaments and biological substances; Z79.899 Other long term (current) drug therapy; Z79.01 Long term (current) use of anticoagulants; Z79.82 Long term (current) use of aspirin; Z79.51 Long term (current) use of inhaled steroids; Z90.2 Acquired absence of lung [part of]
CPT/HCPCS: 36415; 71045; 80048; 80053; 81003; 81015; 82550; 83605; 83735; 83880; 84484; 85025; 87040; 87070; 87086; 87205; 87804; 93005; 93306; 93798; 94640; 96365; J0692; J1940; J1956; J2920; J3490; J7620; U0002

== ENCOUNTER 2020-03-26 10:38 | Emergency (ER) | payer MEDICARE, BC ==
[2020-03-26] MEDS ORDERED: Magnesium 2 GM/50 ML BAG (IN WATER) ONE (10:52)
[2020-03-26] MEDS ORDERED: methylPREDNISolone Sod Succ/PF 125 MG/2 ML VIAL ONE (10:52)
[2020-03-26] MEDS ORDERED: Azithromycin 500 MG VIAL ONE ×2 (11:04→12:18)
[2020-03-26] MEDS ORDERED: cefTRIAXone\\ROCEPHIN 2 GM VIAL ONE ×2 (11:04→12:18)
[2020-03-26] MEDS ORDERED: Albuterol Sulfate 2.5 mg/3 ml Neb ONE (11:08)
[2020-03-26] MEDS ORDERED: Albuterol Sulfate 1.25 MG/3 ML NEB ONE (11:09)
[2020-03-26] MEDS ORDERED: Albuterol Sulfate 2.5 mg/0.5 ml Neb ONE (11:09)
[2020-03-26 11:17] LABS: Actual Bicarbonate (HCO3a) 22.8 mEq/L (22-28); Analyzer IN Cardio ER; Base Excess (BEa) -0.2 mEq/L (-2.0 to +3.0); CO2 Tension 32.4 mmHg (35.0-45.0); Calcium, Ionized (arterial) 1.24 mmol/L (1.12-1.30); Carboxyhemoglobin (COHb) 0.1 gm% (0.0-3.0); Hemoglobin (Hb) 12.4 g/dL (12.0-16.0); O2 Tension (PaO2), arterial 89.9 mmHg (> 60.0); Potassium - ABG Lab 3.07 mmol/L (3.70-5.30); pH, Arterial 7.47 (7.35-7.45)
--- NOTE | 2020-03-26 11:21 | RAD ---
EXAM: Chest one view: HISTORY: Cough history COPD her is Covid positive. COMPARISON: None FINDINGS: Heart size: Minimal cardiomegaly. Lungs: Bilateral linear and interstitial more chronic appearing changes with some pleural thickening and pleural calcification, with minimally progressive interstitial opacity changes over the right midlung zone when compared to the prior study. This certainly could represent some acute atypical pne umonia/pneumonitis including Covid 19 pneumonia in addition to the extensive underlying chronic change. No significant pleural effusion or pneumothorax. IMPRESSION: Extensive chronic pleural and parenchymal opacity changes bilaterally with some increased interstitia l and reticular nodular parenchymal changes in the right midlung zone when compared to the prior study which may well represent some coexistent acute pneumonia/pneumonitis. Consider follow-up chest CT scan in this regard.
[2020-03-26 11:24] LABS: Puncture Site RRA
[2020-03-26 11:29] LABS: ALT (SGPT) 20 U/L (8-55); AST (SGOT) 27 U/L (5-34); Albumin 3.3 g/dL (3.4-4.8); Alkaline Phosphatase 75 U/L (40-110); Anion Gap 10 mmol/L (10-20); BUN (Urea Nitrogen) 13 mg/dL (9.8-20.1); Bilirubin, Total 0.4 mg/dL (0.2-1.2); Calc. Creatinine Clearance 0 mL/min (70-130); Carbon Dioxide 26 mmol/L (23-31); Chloride 94 mmol/L (98-107); Globulin 2.9 g/dL (2.4-3.5); Glucose 100 mg/dL (83-110); Magnesium 1.5 mg/dL (1.6-2.6); Potassium 3.1 mmol/L (3.5-5.1); Protein, Total 6.2 g/dL (6.0-8.3); Sodium 127 mmol/L (136-145)
[2020-03-26 11:56] LABS: CKMB 1.1 ng/mL (0-6.6)
[2020-03-26 12:11] LABS: SARS-CoV-2 NAA Rapid Test DETECTED (NotDetected)
[2020-03-26] MEDS ORDERED: Potassium Chloride 20 MEQ TAB ONE (12:18)
[2020-03-26] MEDS ORDERED: Aspirin Chewable 81 MG TAB ONE (12:18)
[2020-03-26 13:30] LABS: #Lymphocytes 0.5 thou/uL (1.20-3.40); #Monocytes 0.3 thou/uL (0.11-0.59); #Neutrophils 5.8 thou/uL (1.40-6.50); %Eosinophils 0.2 % (0.0-10.0); %Lymphocytes 8.2 % (21.0-51.0); %Monocytes 3.8 % (0.0-10.0); %Neutrophils 87.8 % (42.0-75.0); Hemoglobin 11.5 g/dL (12.0-16.0); Mean Corpuscular HGB CONC 32.2 g/dL (32.0-36.0); Mean Corpuscular Hemoglobin 25.5 pg (27.0-31.0); Mean Corpuscular Volume 79.3 fL (78.0-98.0); Mean Platelet Volume 7.9 fL (7.4-10.4); Platelet Count 417 thou/uL (130-400); RBC Distribution Width 19.8 % (11.5-14.5); Red Blood Cell (RBC) Count 4.51 mill/uL (4.20-5.40); White Blood Cell (WBC) Count 6.6 thou/uL (4.8-10.8)
--- NOTE | 2020-03-26 20:53 | HP ---
PRIMARY CARE PHYSICIAN: Unknown. CHIEF COMPLAINT: "I've been having trouble breathing ever since I moved to [place]." HISTORY OF PRESENT ILLNESS: Ms. Fenton is a very pleasant 84-year-old female, who says that she and her recently moved to the area around March 11 or so. She says ever since then, she has been having trouble with cough and congestion. She also notes an increase in shortness of breath as well. Her she says has been in the hospital for the past 2 or 3 days after he was diagnosed with COVID-19 pneumonia. She also has another relative, I believe, a granddaughter who was also recently diagnosed with COVID-19, but she is at home. She was brought in due to hypoxia as well as cough and congestion. She was originally started off and on oxygen by nasal cannula, but had to be placed on BiPAP in order to maintain her oxygen saturations. Chest x-ray showed bilateral infiltrates, which are consistent with COVID pneumonia and she is being admitted for further evaluation. Otherwise, the patient denies any chest pain. She denies any abdominal pain. No nausea, no vomiting, no diarrhea, but she does admit to poor appetite and not being able to eat as the other symptom. REVIEW OF SYSTEMS: All systems were reviewed and are negative except for that mentioned in history of present illness. PAST MEDICAL HISTORY: Significant for chronic respiratory failure due to COPD; atrial fibrillation; lung cancer, status post resection; and chronic diastolic heart failure. PAST SURGICAL HISTORY: She has had surgery for lung cancer. She has had a cholecystectomy, hysterectomy, as well as hip surgery. ALLERGIES: TO PENICILLIN, STEROIDS, AMOXICILLIN, ERYTHROMYCIN, AND HYDROCODONE, AND WITH REGARD TO THE STEROIDS, SHE IS NOT REALLY SURE ABOUT THIS ALLERGY. SOCIAL HISTORY: She is a former smoker. She says she "quit a long time ago." Denies any alcohol use. She is . When asked about code status, she says she is really not sure. She would not want to have chest compressions, but when asked about intubation, she was just not sure. Therefore, we will leave her as intubate only. FAMILY HISTORY: No history of any heart disease. CURRENT MEDICATIONS: Include: 1. Diltiazem 180 controlled release daily. 2. Carvedilol 3.125 mg twice daily. 3. Losartan 100 mg daily. 4. Eliquis 2.5 mg twice a day. 5. Furosemide 20 mg daily. 6. Atorvastatin 10 mg daily. 7. Aspirin 81 mg daily. 8. Klor-Con 20 mEq two tablets daily. 9. Hydroxyzine 25 mg daily. 10. Tramadol 50 mg as needed. 11. Ipratropium and albuterol q.6 hours as needed. PHYSICAL EXAMINATION: GENERAL: She is alert. She is oriented. She is able to give me the history of present illness. She is a bit thin and frail in appearance however. VITAL SIGNS: Blood pressure was 142/79, heart rate 72, respiratory rate 38, temperature is 98.6, and she is on BiPAP. HEENT: Pupils are equal, round, and reactive. Extraocular muscles are intact. Her sclerae are anicteric. NECK: There is no adenopathy. No bruits. LUNGS: She has rales bilaterally with fine crackles. CARDIOVASCULAR: She has regular rate and rhythm. Slightly tachycardic. There are no murmurs, clicks, or rubs. ABDOMEN: Soft, it is nontender. Positive for bowel sounds. No rebound. No guarding. Slightly distended and tympanic to percussion. EXTREMITIES: There is no edema. No calf tenderness. She did have palpable dorsalis pedis pulses as well as posterior tibial pulses. She has both hammertoe and bunions on both feet. SKIN AND INTEGUMENT: No skin changes. No rash. LABORATORY DATA: COVID screen was positive. Her sodium was 127, potassium 3.1, chloride 94, CO2 is 26, BUN of 13, creatinine 0.67, glucose is 100, magnesium was 1.5. CBC is still pending. Her ABG; the pH was 7.47, pCO2 of 32, pO2 is 89.9. On her chest x-ray, she had bilateral pulmonary infiltrates and some plaque-like scarring along the right diaphragm and also within the right middle to lower lobe as well. This is by my reading. ASSESSMENT: 1. This is a pleasant 84-year-old female, who presents with acute respiratory failure with hypoxemia due to COVID pneumonia. She says her symptoms started on the 18th or so, therefore she has likely passed the therapeutic window for remdesivir. She describes a possible allergy, but not sure to steroids, but I think the benefits of starting the steroids outweigh the risks and therefore we will now place her on IV Decadron. Deep venous thrombosis prophylaxis and trend her inflammatory markers. 2. For hyponatremia, this could be due to SIADH due to the pneumonia. She also admits to being very thirsty and drinking a lot of water. Therefore, we will place her on a fluid restriction and get serum and urine osmolalities. 3. Hypokalemia, likely due to poor oral intake. This will be replaced. 4. Hypomagnesemia, also probably due to poor intake and will be replaced. 5. Atrial fibrillation. Heart rate is controlled. She is on Eliquis and we will restart the Eliquis. 6. Chronic diastolic heart failure. This appears to be compensated. 7. The patient has agreed to being transferred to [facility] due to the lack of bed availability here and the transfer process has been initiated. Job ID: [id number]
--- NOTE | 2020-03-27 18:27 | PDOC.DS.DS ---
Provider - Provider Date of Admission: 03/26/2020 Date of Discharge: 03/26/20 Admitting Provider: Dr. Yuval Fox Consultations: None Primary Care Physician: Isiah Sánchez MD Course - Hospital Course Hospital Course: Ms. Fenton is an 84 year old female with a history of COPD. She presented to the ER with shortness of breath and cough. She was found to have COVID pneumonis. The full details are outlined in the history and physical. She required BiPAP in order to maintain her oxygen saturations. She was to be admitted to our facility, however we did not have any IMCU beds available. I spoke with the patient about transfer to [facility], in which an IMCU bed was available, and she agreed to transfer. She was transfer to the [facility]. Resuscitation Status: 03/26/20 13:20 Resuscitation Status Routine Resuscitation Status: PRTL: Intubate only Discussed with: discussed with the patient - Labs Lab Results: 03/26/20 13:18 03/26/20 10:53 Abnormal Lab Results - Last 48 hrs 03/26/20 10:53: Sodium 127 L, Potassium 3.1 L, Chloride 94 L, Magnesium 1.5 L, Albumin 3.3 L, Albumin/Globulin Ratio 1.1 L 03/26/20 10:56: B-Natriuretic Peptide 238.3 H 03/26/20 10:56: Troponin I 0.039 H 03/26/20 11:03: SARS-CoV-2 Rap RNA(RT-PCR) DETECTED A* 03/26/20 11:14: ABG pH 7.47 H, ABG pCO2 32.4 L, ABG pO2 89.9 H, ABG O2 Content 16.9 L, A-a O2 Gradient 83.500 H, Sodium 124 L, Potassium 3.07 L, Chloride 94 L 03/26/20 13:18: Hgb 11.5 L, Hct 35.8 L, MCH 25.5 L, RDW 19.8 H, Plt Count 417 H, Neutrophils % 87.8 H, Lymphocytes % 8.2 L, Lymphocytes # 0.5 L Microbiology - Entire Visit 03/26/20 10:53 Venous blood - Right Arm Blood Culture - Preliminary Specimen has been received and culture in progress. No Growth to date. 03/26/20 10:53 Venous blood - Left Arm Blood Culture - Preliminary Specimen has been received and culture in progress. No Growth to date. - Physical Exam Physical Exam: The patient was seen and examined on the day of discharge. Problem - Problem (1) Pneumonia due to COVID-19 virus Code(s): U07.1 - COVID-19; J12.82 - Status: Acute (2) Acute respiratory failure with hypoxemia Code(s): J96.01 - ACUTE RESPIRATORY FAILURE WITH HYPOXIA Status: Acute (3) Chronic systolic (congestive) heart failure Code(s): I50.22 - CHRONIC SYSTOLIC (CONGESTIVE) HEART FAILURE Status: Chronic (4) Hx of cancer of lung Code(s): Z85.118 - PERSONAL HISTORY OF MALIGNANT NEOPLASM OF BRONCHUS AND LUNG Status: Chronic (5) Hypertension Code(s): I10 - ESSENTIAL (PRIMARY) HYPERTENSION Status: Chronic Qualifiers: (6) Paroxysmal A-fib Code(s): I48.0 - PAROXYSMAL ATRIAL FIBRILLATION Status: Chronic Plan - Discharge Medications Home Medications: Medication Instructions Recorded Confirmed Type Atorvastatin Calcium [Lipitor] 10 mg PO HS #30 tab 03/31/18 02/10/20 Rx Apixaban [Eliquis] 2.5 mg PO BID #60 tab 06/02/18 02/10/20 Rx Ipratropium/Albuterol Sulfate 3 ml NEB Q4HR 07/18/18 02/10/20 History [DuoNeb] traMADol HCl [Tramadol HCl] 50 mg PO PRN PRN 07/18/18 02/10/20 History Aspirin [Ecotrin Low Strength] 81 mg PO BID 01/25/19 02/10/20 History Diltiazem HCl [Cardizem CD] 180 mg PO QAM 01/25/19 02/10/20 History Furosemide [Lasix] 20 mg PO DAILY 01/25/19 02/10/20 History Losartan [Cozaar] 100 mg PO DAILY 01/25/19 02/10/20 History hydrOXYzine [Atarax] 25 mg PO HS #0 02/04/19 02/10/20 Rx Ipratropium/Albuterol Sulfate 3 ml NEB [id number] #120 neb 09/29/19 02/10/20 Rx [DuoNeb] Nebivolol HCl [Bystolic] 5 mg PO DAILY #30 tab 09/29/19 02/10/20 Rx Saccharomyces boulardii [Florastor] 250 mg PO DAILY #14 cap 09/29/19 02/10/20 Rx guaiFENesin ER [Mucinex] 600 mg PO Q12HR #60 tab 09/29/19 02/10/20 Rx Doxycycline [Vibramycin] 100 mg PO BID #6 cap 02/12/20 Rx Mometasone/Formoterol 200/5 2 puff INH BID-RT #1 inh 02/12/20 Rx [Dulera 200 Mcg/5 Mcg Inhaler] predniSONE [Prednisone] 10 mg PO ASDIR #35 tablet 02/12/20 Rx Allergies: erythromycin base Allergy (Verified 06/12/19 16:49) Rash morphine Allergy (Verified 06/12/19 16:49) Rash oxycodone HCl [From OxyContin] Allergy (Verified 06/12/19 16:49) Hives Itching Penicillins Allergy (Verified 06/12/19 16:49) Rash itching hydrocodone Adverse Reaction (Intermediate, Verified 06/12/19 16:49) "BP DROPPED" BP drops; "feels like she is dying" STEROIDS Allergy (Uncoded 06/12/19 16:49) GENERALIZED SWELLING - Follow up Plan Referrals: Isiah Sánchez MD [Primary Care Provider] - Disposition: [facility] INPT Quality - Care Measures CORE MEASURES:: N/A
== END 2020-03-26 15:36 | disposition short-term general hospital (02) ==
LOC: ERS 10:38
DX: U07.1 COVID-19 (principal); J12.82 Pneumonia due to coronavirus disease 2019; J44.1 Chronic obstructive pulmonary disease with (acute) exacerbation; I48.91 Unspecified atrial fibrillation; I10 Essential (primary) hypertension; Z87.891 Personal history of nicotine dependence; Z79.82 Long term (current) use of aspirin; Z79.899 Other long term (current) drug therapy; Z79.51 Long term (current) use of inhaled steroids; Z79.01 Long term (current) use of anticoagulants
CPT/HCPCS: 0240U; 36415; 36600; 71045; 80053; 82553; 82805; 83605; 83735; 83880; 84484; 85025; 87040; 93005; 94640; 94644; 94760; J0456; J0696; J2930; J3475; J7611

== ENCOUNTER 2021-01-03 10:47 | Outpatient (CLI) | payer MEDICARE, BC | END 2021-01-03 10:48 | disposition home or self-care (01) | LOC: RAD 10:47 | PROVIDERS: ATTEND Internal Medicine Critical Care Medicine | DX: Z48.813 Encounter for surgical aftercare following surgery on the respiratory system (principal); Z90.2 Acquired absence of lung [part of]; J90 Pleural effusion, not elsewhere classified | CPT/HCPCS: 71046 ==